=== PATIENT | male | born 1945 | race Caucasian/White ===

== ENCOUNTER 2016-07-25 10:05 | Inpatient (IN) | payer MEDICARE, OTHER ==
[~2016-07-25] VITALS: Ht 175.3 cm; Wt 68.9 kg
[~2016-07-25 10:05] MED LIST changes: -ALBU6.7H IH; -ASP81CT PO; -BUDE10.2 IH; -FURO20TA4 PO; -GUAI600T45 PO; -IPRA3AMP11 INH; -MELO-249 PO; -OXYC1TAB12 PO; -TAMS-8 PO; -TIOT4MIS3 IH
--- OUTSIDE RECORDS SUMMARY | 2016-07-25 10:17 | XMS REPORT | Summary of Care ---
Author Author Gentry Medellin M.D. Organization Unknown Address Unknown Phone Unavailable Care Team Providers Care Masticator Name Role Phone Gentry Medellin M.D. 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 Start 23-May-2016 Active 4 GM Inhaler Citalopram Hydrobromide 40 MG Oral Tablet Take one tablet by mouth daily Quantity: 30 Refills: 11 Active Albuterol Sulfate (2.5 MG/3ML) 0.083% Inhalation Nebulization Solution USE 1 UNIT DOSE IN NEBULIZER EVERY 4 HOURS NEEDED. Quantity: 1 Refills: 4 Active 3 ML Plas Cont (125 Plas Conts) ProAir HFA AERS INHALE 2 PUFFS EVERY 4 HOURS NEEDED FOR COUGH AND WHEEZE. Refills: 0 Active GNP Mucus Relief 400 MG Oral Tablet 1 p.o. 3 times daily Refills: 0 Active Budesonide 1 MG/2ML Inhalation Suspension INHALE 1 UNIT DOSE Twice daily Quantity: 60 Refills: 11 Active 2 ML Plas Cont Ipratropium-Albuterol 0.5-2.5 (3) MG/3ML Inhalation Solution ADMINISTER ONE 3 ML VIAL 4 TIMES DAILY VIA NEBULIZATION. Quantity: 2 Refills: 3 Gentry Medellin M.D. Start 31-May-2016 Active 3 ML Plas Cont (60 Plas Conts) Meloxicam 15 MG Oral Tablet TAKE 1 TABLET DAILY NEEDED. Quantity: 30 Refills: 2 Gentry Medellin M.D. Start 25-Jun-2016 Active Acetylcysteine 20 % Inhalation Solution 2 times a week and BID PRN Quantity: 1 Refills: 5 Gentry Medellin M.D. 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 Procedures Procedure Dates Details History of Colonoscopy History of Hernia Repair Procedures not documented Immunization Name Dates Details Pneumo (Prevnar) on: 01-Aug-2015 Family History Name Dates Details Family history of cerebrovascular accident (CVA) (V17.1, Z82.3) Comments: Family History Status: Active Social History Name Dates Details - Status: Name Dates Details Former smoker Vital Signs Date Test Result Details 25-Jun-2016 10:04 BP Systolic 122 mm[Hg] Status: Comments: Location: LUE; Position: Sitting BP Diastolic 70 mm[Hg] Status: Comments: Location: LUE; Position: Sitting Temperature 98.8 f Status: Comments: Method: Tympanic Heart Rate 85 /min Status: Comments: Location: ; Weight 172 lb Status: Physical Findings 92 Status: Comments: O2 Saturation FiO2 flow rate 2 % Status: Body Mass Index Calculated 25.77 kg/m2 Status: Body Surface Area Calculated 1.93 m2 Status: Results Date Description Value Details 16-Dec-2015 09:16 Colonoscopy Normal Range: 0 Plan of Care Name Dates Details Planned Observations Planned Goals not documented Planned Encounters Appointment; Provider: Gentry Medellin M.D. On 01-Nov-2016 10:00 Interventions Provided Medication ChangesAcetylcysteine 20 % Inhalation Solution - StartMeloxicam 15 MG Oral Tablet - Start Instructions Name Dates Details Instructions not documented Encounters Appointment; Gentry Medellin M.D. Encounter Diagnosis: Problem not documented On 23-May-2016 08:30
[2016-07-25 10:44] LABS: MEAN CORPUSCULAR HEMOGLOBIN 31.4 PG (26.0-34.0); MEAN CORPUSCULAR HGB CONC 32.4 g/dL (31.0-37.0); MEAN CORPUSCULAR VOLUME 97 FL (80-100); MEAN PLATELET VOLUME 9.9 FL (6.0-9.5); PLATELET COUNT 259 10^3uL (150-450); WHITE BLOOD COUNT 16.43 10^3uL (4.0-11.0)
[2016-07-25 10:57] LABS: ALBUMIN 4.1 g/dL (3.4-5.0); ALKALINE PHOSPHATASE 88 U/L (38-126); ANION GAP 20.4 MEQ/L (3-15); BUN/CREATININE RATIO 17 (10-20); TOTAL PROTEIN 7.8 g/dL (6.4-8.5)
[2016-07-25 11:07] LABS: CREATINE KINASE 245 U/L (55-170)
--- NOTE | 2016-07-25 11:10 | Diagnostic Imaging Report ---
INDICATION: Shortness of breath EXAMINATION: Portable chest at 10:48 AM Heart size and pulmonary vascularity are normal. Lungs are clear. There are no effusions or pneumothoraces. IMPRESSION: Negative chest. Dictated by: Dictated on workstation # [id number]
[2016-07-25 11:16] LABS: BILIRUBIN,URINE Negative (Negative); CLARITY,URINE Clear; COLOR,URINE Yellow; GLUCOSE, URINE (UA) Negative (Negative); LEUKOCYTE ESTERASE ,URINE 1+ (Negative); PH,URINE 5.5 (5.0 - 8.0)
[2016-07-25 11:22] LABS: URINE CENTRIFUGED VOLUME 12 mL
[2016-07-25 11:27] LABS: RBC,URINE >100 /HPF
[2016-07-25 12:25] LABS: BAND NEUTROPHILS % 1 % (0-6); EOSINOPHILS % 2 % (0-4); LYMPHOCYTES # 1.5 #; MONOCYTES # 1.1 #; MONOCYTES % 7 % (3-11); SEGMENTED NEUTROPHILS % 81 % (51-67); TOTAL CELLS COUNTED 100
[2016-07-25 12:26] LABS: RBC MORPH NORMAL (NORMAL)
[2016-07-25] MEDS ORDERED: MELO-249 PO (14:04)
[2016-07-25] MEDS ORDERED: FURO20TA4 PO (14:04)
[2016-07-25] MEDS ORDERED: TIOT4MIS3 IH (14:04)
[2016-07-25] MEDS ORDERED: IPRA3AMP11 INH (14:04)
[2016-07-25] MEDS ORDERED: TAMS-8 PO (14:04)
[2016-07-25] MEDS ORDERED: BUDE10.2 IH (14:04)
[2016-07-25] MEDS ORDERED: ALBU6.7H IH (14:04)
[2016-07-25] MEDS ORDERED: OXYC1TAB12 PO (14:04)
--- NOTE | 2016-07-25 14:05 | NUR ---
Pt admitted to [facility]m 314 via cart accompanied by daughter/DPKandi ZENDEJAS. Pt transferred himself from cart to bed by scooting onto bed next to cart. Pt and daughter state he cannot ambulate with the leg swelling the way it is now. Pt very talkative, speaking in full sentences. O2 on 3L NC at this time. Pt asks what it is on, stating he wonders if it's enough. Encouraged to take slow deep breaths. Bilateral leg edema 2+ pitting with blister on top of L foot. Multiple scratches and open areas noted on lower extremities. Pt states he "scratched at them once and they looked like that". 2 small weeping areas noted on R lower extremity.
[2016-07-25] MEDS ORDERED: CITA40TA5 PO (14:26)
[2016-07-25] MEDS ORDERED: ALBUTEROL HFA (VENTOLIN HFA) COMMON CANNISTER IH PRN (14:35)
[2016-07-25 15:05] VITALS: BP 113/65
--- NOTE | 2016-07-25 15:19 | History and Physical (E) ---
History & Physical PCP: Gentry Medellin MD CC: Falls at home, leg edema. HPI Aurelio Herrera is a 71 year old male admitted from ED 07/25 where he presented from home via EMS for falls at home. He has had at least three falls in the last 24 hours and on this most recent fall he could not get up without EMS assistance. Has resultant back pain. Has other issues as well including worsening BLE edema, leg numbness. In ED, afebrile with low BP at 97/52, HR 92, SpO2 85% on room air, 91% on 3 L. WBC was elevated at 16.43 with 81% N and 1% B. CK mildly elevated at 245. Troponin negative. NT-pro-BNP = 462. TSH normal. UA showed 3+ blood, 1+ LE, > 100 RBC, 5-10 WBC. 2+ hyaline casts. He was given no therapies in ED. He was admitted for further workup and management. On arrival to unit, awake, interactive, oriented. Able to relate history. Speaking in full sentences. Acknowledges falling 3 times. Blames this on his socks that don't fit well (because of edema) and caused him to slip. He tried to brace his fall against the refrigerated door but couldn't stop himself from going down. Denies light headedness or dizziness. Denies syncopal symptoms but has had weakness in his legs. Feet are often numb with some burning sensation at times. Legs have been more swollen and he has spots that have weeping. He has some secondary excoriations as well. These spots have not bleed. No fever/ chills. Has had chronic back pain and this has been getting worse. PCP had ordered lumber MRI at the open MRI facility in [place] but this was recently deferred because of equipment issues. No new bowel or bladder incontinence. No saddle paresthesia. But he has had worse leg weakness especially on left side. Referred to Dr. Toth in [place]. PCP had planned to defer to him for imaging but daughter says Dr. Toth was asking for a CT in the very least. Does have red flag factors including worsening pain, age, leg weakness. Regarding leg edema, has had this over the last year. Swelling would come and go but it has been getting worse in the last few weeks. No prior echo. He had a swan placed by PCP's office 07/23 to aid with diuresis. Patient is actually more bothered by leg edema than anything else. He feels if he could get the swelling off, leg and back pain would be much improved. Had been taking furosemide at home. Weight has been stable but edema not improving. Has not been using compression hose at home. PMH * Urinary retention * COPD stage III. [facility] [place]. * Depression * Anxiety * Chronic back pain * BLE edema * Tobacco abuse. Quit 07/2015. * OA PSH * Right inguinal hernia repair ALLERGIES: Please see list at end of report. HOME MEDICATIONS: Please see list at end of report. FH Mom of stroke. Had some kind of cancer in her leg. Father of pneumonia. Daughter is healthy. SH Lives independently at [facility]. Quit smoking in 2015 but had > 100 pack year history. No alcohol. No drug use. 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 ROS CONSTITUTION: Weight stable despite swelling. No fever or chills. HEENT: No change in vision or hearing. No sores in mouth, sore throat. Has some trouble swallowing at times. CV: No chest pain, palpitations. PULM: Has mild chronic cough but no recent increase. On home oxygen already. GI: No upset stomach, nausea, vomiting, or diarrhea. Some constipation. No blood in stool. : No dysuria. Has swan placed by PCP 07/23. MS: No new muscle or joint aches and pains. NEURO: Per HPI, exam. INTEG: Per HPI, exam. ENDO: No heat or cold intolerance. HEME/LYMPH: No easy bruising or bleeding. No swollen glands. PSYCH: No change in mood or behavior. OBJECTIVE Vital Signs Date Time Temp Pulse Resp B/P Pulse Ox O2 Delivery O2 Flow Rate FiO2 07/25/16 14:16 95 19 91 Nasal Cannula 3 07/25/16 10:05 98.0 97/52 GEN: Awake, alert, oriented, NAD at present. HEENT: EOMI, clear sclerae, somewhat dry oral mucosa. CV: RRR S1 S2 normal with no murmur LUNGS: Diminished throughout. No R/R/W. ABD: Soft, NT/ND with normal bowel sounds. EXTR: 3+ BLE edema with weeping. Marked pedal edema, L > R INTEG: Punctate lesions BLE with weeping, secondary excoriations. Surrounding erythema. Large bulla, dorsum of right foot. NEURO: No focal motor neuro deficit. Gait not assessed. Detailed exam deferred on admit due to lumbar back pain. Weight: 68.1 kg Laboratory Results-14 Days 07/25/16 09:43: Absolute Band Neutrophils 0.2, Alanine Aminotransferase (ALT/SGPT) 59, Albumin 4.1, Albumin/Globulin Ratio 1.108, Alkaline Phosphatase 88, Anion Gap 20.4H, Aspartate Amino Transf (AST/SGOT) 52H, BUN/Creatinine Ratio 17, Band Neutrophils % 1, Basophils # (Auto) , Basophils # (Manual) 0.0, Basophils % ( Manual) 0, Basophils (%) (Auto) , Blood Morphology Comment Normal, Blood Urea Nitrogen 19H, Calcium Level 9.6, Calcium/Ionized Calcium Ratio 4.0, Calculated Osmolality 274L, Carbon Dioxide Level 32H, Chloride Level 92L, Creatine Kinase MB 5.1, Creatinine 1.10, Differential Total Cells Counted 100, Eosinophils # 0.3 , Eosinophils # (Auto) , Eosinophils % (Manual) 2, Eosinophils (%) (Auto) , Estimat Glomerular Filtration Rate 80.1, Estimated GFR (Non- 66.2, Glucose Level 96, Hematocrit 44.50, Hemoglobin 14.4, Lymphocytes # 1.5, Lymphocytes # (Auto) , Lymphocytes % (Manual) 9L, Lymphocytes (%) (Auto) , Mean Corpuscular Hemoglobin 31.4, Mean Corpuscular Hemoglobin Concent 32.4, Mean Corpuscular Volume 97, Mean Platelet Volume 9.9H, Monocytes # 1.1, Monocytes # ( Auto) , Monocytes % (Manual) 7, Monocytes (%) (Auto) , RO-Udv-U-Type Natriuretic Peptide 462H, Neutrophils # 13.3, Neutrophils # (Auto) , Neutrophils (%) (Auto) , Platelet Count 259, Potassium Level 3.6, Prothromb Time International Ratio 1.1, Prothrombin Time 12.1, Red Blood Count 4.59, Red Cell Distribution Width 12.8, Segmented Neutrophils % 81H, Sodium Level 141, Thyroid Stimulating Hormone (TSH) 1.56, Total Bilirubin 1.0, Total Creatine Kinase 245*H, Total Protein 7.8, Troponin I < 0.012, White Blood Count 16.43H 07/25/16 11:05: Urine Bacteria 1+, Urine Bilirubin Negative, Urine Blood 3+H, Urine Clarity Clear, Urine Collection Type Catheter, Urine Color Yellow, Urine Glucose (UA) Negative, Urine Hyaline Casts 2+H, Urine Ketones Negative, Urine Leukocyte Esterase 1+H, Urine Microscopic RBC >100, Urine Nitrite Negative, Urine Protein Negative, Urine Specific Carey 1.020, Urine Squamous Epithelial Cells 2-5, Urine Urobilinogen 1.0, Urine WBC 5-10H, Urine pH 5.5, Volume Urine Centrifuged 12 ml IMAGING 07/25/16 CHEST 1 VIEW, AP/PA ONLY* INDICATION: Shortness of breath EXAMINATION: Portable chest at 10:48 AM Heart size and pulmonary vascularity are normal. Lungs are clear. There are no effusions or pneumothoraces. IMPRESSION: Negative chest. ASSESSMENT Aurelio Herrera is a 71 year old male admitted from ED 07/25 after 3 falls at home attributed to leg weakness and tripping. He has acute on chronic lower back pain and has been dealing with worsening BLE edema of undetermined cause. He has had urinary retention and swan was placed in office by PCP 2 days prior to admit. He has other chronic problems including stage III COPD. PLAN * Falls at home: Check vitamin D. PT/OT eval and treat. * Acute on Chronic Lower Back Pain: Red flags: age, left leg weakness. Unable to tolerate MRI that had been ordered outpatient prior to admit. CT L-spine to evaluate. PCP plans to refer to Dr. Paniagua in [place]. Oxycodone/acetaminophen , lidoderm for pain. * BLE Edema: Uncertain cause. Could be due to fluid retention caused by lung disease. Has not had prior cardiac workup. Renal function appears preserved and there does not appear to be significant proteinuria. Check echo. JODY hosareli. Furosemide. * Leukocytosis: WBC 16.43 on admit. 81% N with 1% bands. LE positive on UA but nitrite negative. No other stigmata of infection. Monitor closely. Monitor WBC trend. * Constipation: Bowel regimen * F/E/N: 2 gram sodium diet. Peripheral IV. I&O, daily weight. * Prophylaxis: Enoxaparin * Code Status: Full * Dispo: Observation pending utilization review. Expect 2-3 day stay. CHRONIC ISSUES * Urinary retention. Tamsulosin, swan * Anxiety: Citalopram. Permit lorazepam, though monitor use closely. * Depression: Citalopram * Chronic Pack Pain: Oxycodone/acetaminophen * COPD Stage III: Albuterol PRN. Duoneb. Review/reconcile home regimen. Allergies/Home Medications Allergies: Coded Allergies: No Known Drug Allergies (Unverified , 07/25/16) Reported Home Medications Scheduled Albuterol/Ipratropium (Duoneb 3mg-0.5mg/3ml) 3 ML INH QID (Reported) Budesonide/Formoterol Fumarate (Symbicort 160-4.5 mcg Inhaler) 2 PUFF IH BID ( Reported) Citalopram Hydrobromide (Citalopram Hydrobromide) 40 MG PO DAILY (Reported) Furosemide (Furosemide) 20 MG PO BID (Reported) Meloxicam (Meloxicam) 15 MG PO DAILY (Reported) Oxycodone HCl/Acetaminophen (Percocet 10mg/325mg) 1 TAB PO Q4-6 (Reported) Tamsulosin HCl (Flomax) 0.4 MG PO DAILY (Reported) Tiotropium Br/Olodaterol HCl (Stiolto Respimat Inhal [place]) 4 GM IH DAILY ( Reported) Scheduled PRN Albuterol Sulfate (Proventil HFA) 6.7 GM IH NEEDED PRN PRN DYSPNEA (Reported ) Discontinued Medications Acetaminophen (Acetaminophen) 1,000 MG PO PRN (Reported) Discontinued Reason: Update list Citalopram Hydrobromide (Citalopram Hydrobromide) 40 MG PO DAILY (Reported) Discontinued Reason: Update list Cyclobenzaprine HCl (Flexeril) 10 MG PO Q8H PRN PRN SPASMS Discontinued Reason: Update list Methylprednisolone (Medrol Dosepack) 21 TAB PO DAILY Discontinued Reason: Update list Naproxen Sodium (Aleve) 440 MG PO PRN (Reported) Discontinued Reason: Update list Naproxen Sodium (Anaprox DS) 550 MG PO Q8H PRN PRN PAIN Discontinued Reason: Update list Vit D3/Folic Acid/B2/B6/B12 (Folgard Tablet) 1 EACH PO PRN (Reported) Discontinued Reason: Update list Copies to: End of Report . SONIA CERVANTES MD July 25, 2016 15:09
[2016-07-25] MEDS ORDERED: MAGNESIUM HYDROXIDE 80MG/ML (MILK OF MAGNESIA) 30 ML UDC PO PRN (15:30)
[2016-07-25] MEDS ORDERED: ONDANSETRON 4 MG (ZOFRAN) ORAL DISSOLVE TAB PO PRN (15:30)
[2016-07-25] MEDS ORDERED: PROMETHAZINE HCL INJ 12.5 MG in SODIUM CHLORIDE 25 ML IV PRN (15:30)
[2016-07-25] MEDS ORDERED: CALCIUM CARBONATE CHEWABLE 300 MG (TUMS) TABLET PO PRN (15:30)
[2016-07-25] MEDS ORDERED: ACETAMINOPHEN 325 MG TAB (TYLENOL) PO PRN (15:30)
[2016-07-25] MEDS ORDERED: MAG HYDROX/AL HYDROX/SIMETH 200-200-20/5 ML (MAG-AL PLUS) 30 ML UDC PO PRN (15:30)
[2016-07-25 15:58] VITALS: BP 99/56
[2016-07-25] MEDS: LIDOCAINE (LIDODERM) 5% PATCH TOP SCH (16:05)
[2016-07-25] MEDS: LORazepam 1 MG (ATIVAN) TABLET PO PRN (17:17)
--- NOTE | 2016-07-25 17:17 | NUR ---
Upon administering PO Ativan for pt's general anxiety, pt states "I'm not staying here tonight. I need to go home. My anxiety and depression are getting to me and I'm claustrophobic and I can't be alone tonight. I just can't stay here tonight". Long discussion with patient regarding ability to care for himself in his condition. Pt states "I can keep my legs up at home". When medications were discussed, pt states "can't I take medications at home?". Discussed importance of IV medications. PO Ativan given at this time. Tristonine informed of anxiety.
[2016-07-25] MEDS: ALBUTEROL/IPRATROPIUM 3MG-0.5MG/3ML (DUONEB) NEB VIAL INH SCH ×2 (17:20→20:30)
[2016-07-25] MEDS ORDERED: NS FLUSH 3 ML PRN IV (17:30)
[2016-07-25] MEDS: LORazepam 2 MG/ML (ATIVAN) 1 ML VIAL IV PRN (17:32)
--- NOTE | 2016-07-25 17:32 | NUR ---
PRN dose of IV Ativan given at this time per Dr Ace's instruction. Malka conversed with patient and daughter. Informed pt we will work to treat his anxiety so he can stay here to treat his edema. Will re-evaluate patient's condition once medications take effect.
[2016-07-25] MEDS: FUROSEMIDE 100 MG/10 ML (LASIX) VIAL IV SCH (17:46)
[2016-07-25] MEDS: CITALOPRAM 40 MG (CELEXA) TABLET PO SCH (17:46)
[2016-07-25] MEDS: POLYETHYLENE GLYCOL 17 GM (MIRALAX) PACKET PO SCH (17:46)
--- NOTE | 2016-07-25 18:30 | NUR ---
MED REC COMPLETE--current med list obtained from interview with patient and his daughter.
[2016-07-25] MEDS ORDERED: GUAI600T45 PO (18:41)
[2016-07-25] MEDS ORDERED: AC500T PO (18:41)
[2016-07-25] MEDS ORDERED: ASP81CT PO (18:41)
[2016-07-25] MEDS: DOCUSATE SODIUM 100 MG (COLACE) CAP PO SCH (20:02)
[2016-07-25] MEDS: PATCH REMOVAL TOP SCH (20:02)
--- NOTE | 2016-07-25 20:15 | NUR ---
To CT. Patient displays no anxiety at this time.
[2016-07-25] MEDS: FLUTICASONE/SALMETEROL HFA 115/21 MCG (ADVAIR) COMMON CANNISTER INH SCH (20:30)
--- NOTE | 2016-07-25 20:35 | NUR ---
Return from CT
--- NOTE | 2016-07-25 21:04 | Diagnostic Imaging Report ---
PROCEDURE: CT lumbar spine without contrast. TECHNIQUE: Multiple contiguous axial images were obtained through the lumbar spine without the use of intravenous contrast. Sagittal and coronal reformations were then performed. INDICATION: [id number]-zc-[id number] low back pain with leg weakness. FINDINGS: There is left convexity degenerative lumbar rotoscoliosis. The vertebral body heights are well maintained. There is multilevel degenerative disc disease with a vacuum disc at essentially every level of the lumbar spine. There is lower lumbar hypertrophic degenerative facet disease. At L3-L4, there appears to be broad-based annular bulging with thickening of the ligamentum flavum. There is at least [id number]-qzhmqg central spinal stenosis with encroachment upon the lateral recesses bilaterally as well as right neuroforaminal encroachment. Similar findings are seen at L4-L5 and to a lesser degree at L5-S1. There is ectasia of the infrarenal abdominal aorta up to 2.7 cm. IMPRESSION: Moderately severe diffuse lumbar spondylosis and multilevel degenerative disc disease with a left convexity degenerative lumbar rotoscoliosis. There is xpsafrii-ld-hizlum spinal stenosis at L3-L4 and L4-L5. This could be better evaluated with MRI. No acute fracture. Dictated by: Dictated on workstation # [id number]
[2016-07-25] MEDS: oxycODONE/ACETAMINOPHEN 10MG-325 MG (PERCOCET-10) TABLET PO PRN (21:06)
[2016-07-26 00:50] VITALS: BP 106/54
[2016-07-26] MEDS: oxycODONE/ACETAMINOPHEN 10MG-325 MG (PERCOCET-10) TABLET PO PRN ×2 (04:30→14:18)
--- NOTE | 2016-07-26 04:30 | NUR ---
Percocet for back pain. Patient also repositioned and coffee provided as requested.
[2016-07-26] MEDS: FLUTICASONE/SALMETEROL HFA 115/21 MCG (ADVAIR) COMMON CANNISTER INH SCH ×2 (06:05→19:34)
[2016-07-26] MEDS: ALBUTEROL/IPRATROPIUM 3MG-0.5MG/3ML (DUONEB) NEB VIAL INH SCH (06:05)
[2016-07-26 06:09] LABS: BASOPHILS % (AUTO) 0 % (0-2); EOSINOPHILS # (AUTO) 0.3 10^3uL; EOSINOPHILS % (AUTO) 2 % (0-4); MEAN CORPUSCULAR HGB CONC 32.6 g/dL (31.0-37.0); MEAN CORPUSCULAR VOLUME 97 FL (80-100); MEAN PLATELET VOLUME 9.6 FL (6.0-9.5); MONOCYTES # (AUTO) 1.2 X10^3; MONOCYTES % (AUTO) 9 % (3-11); NEUTROPHILS # (AUTO) 10.4 X10^3; NEUTROPHILS % (AUTO) 80 % (51-67); PLATELET COUNT 224 10^3uL (150-450); WHITE BLOOD COUNT 12.95 10^3uL (4.0-11.0)
[2016-07-26 06:10] LABS: MEAN CORPUSCULAR HEMOGLOBIN 31.8 PG (26.0-34.0)
[2016-07-26 06:30] LABS: ALBUMIN 3.1 g/dL (3.4-5.0); ANION GAP 10.3 MEQ/L (3-15); MAGNESIUM* 2.1 mg/dL (1.6-2.3)
--- NOTE | 2016-07-26 07:46 | NUR ---
Patient had no further issues with anxiety through the night.
[2016-07-26 07:59] VITALS: BP 104/59
[2016-07-26] MEDS: CITALOPRAM 40 MG (CELEXA) TABLET PO SCH (08:16)
[2016-07-26] MEDS: POTASSIUM CHLORIDE ER 20 MEQ TABLET PO SCH ×2 (08:16→18:16)
[2016-07-26] MEDS: POLYETHYLENE GLYCOL 17 GM (MIRALAX) PACKET PO SCH (08:16)
[2016-07-26] MEDS: DOCUSATE SODIUM 100 MG (COLACE) CAP PO SCH ×2 (08:16→20:51)
[2016-07-26] MEDS: FUROSEMIDE 100 MG/10 ML (LASIX) VIAL IV SCH (08:20)
--- NOTE | 2016-07-26 08:30 | NUR ---
PRN Ativan given at this time per pt request. Pt sitting up in bed. States he slept well and that the bed is comfortable. Denies needs.
[2016-07-26] MEDS: LORazepam 1 MG (ATIVAN) TABLET PO PRN (08:31)
[2016-07-26] MEDS: ENOXAPARIN 40 MG/0.4 ML (LOVENOX) SYR SC SCH (08:32)
[2016-07-26] MEDS: NS FLUSH 3 ML DAILY IV SCH (09:00)
--- NOTE | 2016-07-26 09:17 | NUR ---
NUTRITION ASSESSMENT Level 1 Patient: Aurelio Herrera Age/Sex: 71/M Date Screened: 07-26-16 Weight: 165#/75 kg Height: 69 inches Primary Diagnosis: falls, BLE edema Diet Order: 2 g. sodium Relevant labs: potassium 3.4, phos/mg WNL, 25(OH)D2 <12.8, TSH 1.56, glucose 96 Food allergies: N Nutrition Assessment Criteria Age over 80: N Body Mass Index (BMI) under 19: N Admission Screening Indicates Risk? 6 points Moderate/High Risk Diagnosis: N TPN or PPN: N NPO or clear liquid diet: N Serum Glucose <70 or >180: N Hgb A1c >6.7: N/A Total: 6 points Risk Screen: __ Patient at low nutritional risk based on available data; reevaluate in 5-7 days __ Patient at moderate nutritional risk based on available data; reevaluate in 3-5 days _X_ Patient at high nutritional risk; complete Nutrition Assessment within 48 hours of admission.
--- NOTE | 2016-07-26 10:36 | NUR ---
NUTRITION ASSESSMENT Level II Patient: Aurelio Herrera Age/Sex: 71/M Date Assessed: 07-26-16 ASSESSMENT Pertinent History: Patient admitted with falls and BLE edema, and screened at high nutritional risk secondary to reports of difficulty swallowing at times as well as 3 falls at home in the past 24 hours. PMHx includes COPD stage III, depression/anxiety, chronic back pain and osteoarthritis. He lives alone at home in [facility]. Pt. denied GI concerns. He has been taking Lasix at home but edema not improving. Pt. reports weight has been stable despite swelling and edema; there is no recent weight in the EMR to corroborate this, but he weighed 134# in 2013. Pt. was admitted with 3+ BLE edema. Meds/Nutrition: KCl, Colace, Lasix Weight: 165#/75 kg Height: 69 inches Body Mass Index (BMI): 24.4 [place] Body Weight : 160#/72.7 kg % IBW: 103% GASTROINTESTINAL Appetite: fair, eating 50% Diet Order: 2 g. sodium Unintentional loss of >10 lbs. in 3 months: N Difficult to chew/swallow: Yes, at times Diabetes: N Relevant Labs: potassium 3.4, phos/mg WNL, 25(OH)D2 <12.8, TSH 1.56, glucose 96 Calculations for Nutritional Assessment Estimated calorie needs: 25-28 kcals/kg = 1,875-2,100 kcals Estimated protein needs: 1.0-1.3 g/kg = 75-97 g./day DIAGNOSIS 1. Nutrition Diagnosis: Potential for inadequate intake related to occasional trouble swallowing as evidenced by pt. reports of difficulty swallowing at times. NUTRITIONAL INTERVENTION Goal: Patient will receive adequate nutrition to meet his needs. Plan: Will provide 2 g. sodium diet as ordered and monitor intake for adequacy. I am concerned that pt. has lost weight that is masked by his 3+ BLE edema. Encourage adequate protein with minimum 75 g./day as calculated above. Will also monitor for any difficulty in swallowing, and adjust diet to best meet his needs as needed. MONITORING & EVALUATION _X_ Monitor patients menu selections _X_ Monitor patients food intake per nursing notes __ Monitor NPO/clear liquid days __ Monitor lab values _X_ Monitor I&O _X_ Other--monitor weight and swallow ability
--- NOTE | 2016-07-26 10:38 | Progress Note (E) ---
Progress Note SUBJECTIVE Vitals stable overnight. Weaned to room air. Having good diuresis with IV furosemide. WBC improved to 12.95. 80% N. K mildly low at 3.4. Added PO supplement. CRP was mildly elevated at 4.70. NT-pro-BNP just 462, less suggestive of heart failure. Vit D quite low so starting ergocalciferol. UA suggests possible UTI but he had a catheter placed 2 days prior to admit so sample is suspect. Culture pending. CT lumbar spin showed stenosis but no actionable lesion at this time. Plan to send him home with CD of this to share with back surgeon he plans to see. Anxiety was a struggle for him yesterday afternoon but this stabilized with lorazepam. Noted that he is not on this at home. RN reports some leakage around the swan catheter. Discussed plan to remove this altogether. He's fearful since he's getting diuresed and isn't able to move well. Plan to exchange catheter. OBJECTIVE Vital Signs Date Time Temp Pulse Resp B/P Pulse Ox O2 Delivery O2 Flow Rate FiO2 07/26/16 07:59 98.0 95 22 104/59 92 Room air 07/25/16 15:58 3.00 I & O 07/25/16 07/26/16 Cumulative From/Thru 19:00 07:00 07/25/16 10:05 - 07/26/16 06:03 Intake Total 1537 ml 1537 ml Output Total 2600 ml 2600 ml Balance -1063 ml -1063 ml GEN: Awake, alert, oriented, a bit breathless being repositioned back into bed. HEENT: EOMI, clear sclerae, somewhat dry oral mucosa. CV: RRR S1 S2 normal with no murmur LUNGS: Diminished throughout. No R/R/W. ABD: Soft, NT/ND with normal bowel sounds. : Swan EXTR: 3+ BLE edema with weeping. Marked pedal edema, L > R INTEG: Punctate lesions BLE with weeping, secondary excoriations. Surrounding erythema. Large bulla, dorsum of right foot. MS: Pain on palpation of lumbar spine. Pain with supine positioning. NEURO: No focal motor neuro deficit. Gait not assessed. Detailed exam deferred on admit due to lumbar back pain. Weight: 75 kg (admit weight 74.6 kg) Lab-Past 14 Days, 35 Results 07/25/16 09:43: Absolute Band Neutrophils 0.2, Alanine Aminotransferase (ALT/SGPT) 59, Albumin 4.1, Albumin/Globulin Ratio 1.108, Alkaline Phosphatase 88, Anion Gap 20.4H, Aspartate Amino Transf (AST/SGOT) 52H, BUN/Creatinine Ratio 17, Band Neutrophils % 1, Basophils # (Auto) , Basophils # (Manual) 0.0, Basophils % ( Manual) 0, Basophils (%) (Auto) , Blood Morphology Comment Normal, Blood Urea Nitrogen 19H, Calcium Level 9.6, Calcium/Ionized Calcium Ratio 4.0, Calculated Osmolality 274L, Carbon Dioxide Level 32H, Chloride Level 92L, Creatine Kinase MB 5.1, Creatinine 1.10, Differential Total Cells Counted 100, Eosinophils # 0.3 , Eosinophils # (Auto) , Eosinophils % (Manual) 2, Eosinophils (%) (Auto) , Estimat Glomerular Filtration Rate 80.1, Estimated GFR (Non- 66.2, Glucose Level 96, Hematocrit 44.50, Hemoglobin 14.4, Lymphocytes # 1.5, Lymphocytes # (Auto) , Lymphocytes % (Manual) 9L, Lymphocytes (%) (Auto) , Mean Corpuscular Hemoglobin 31.4, Mean Corpuscular Hemoglobin Concent 32.4, Mean Corpuscular Volume 97, Mean Platelet Volume 9.9H, Monocytes # 1.1, Monocytes # ( Auto) , Monocytes % (Manual) 7, Monocytes (%) (Auto) , PW-Tdi-G-Type Natriuretic Peptide 462H, Neutrophils # 13.3, Neutrophils # (Auto) , Neutrophils (%) (Auto) , Platelet Count 259, Potassium Level 3.6, Prothromb Time International Ratio 1.1, Prothrombin Time 12.1, Red Blood Count 4.59, Red Cell Distribution Width 12.8, Segmented Neutrophils % 81H, Sodium Level 141, Thyroid Stimulating Hormone (TSH) 1.56, Total Bilirubin 1.0, Total Creatine Kinase 245*H, Total Protein 7.8, Troponin I < 0.012, White Blood Count 16.43H 07/25/16 10:43: 25-Hydroxy Vitamin D Total < 12.8L 07/25/16 11:05: Urine Bacteria 1+, Urine Bilirubin Negative, Urine Blood 3+H, Urine Clarity Clear, Urine Collection Type Catheter, Urine Color Yellow, Urine Glucose (UA) Negative, Urine Hyaline Casts 2+H, Urine Ketones Negative, Urine Leukocyte Esterase 1+H, Urine Microscopic RBC >100, Urine Nitrite Negative, Urine Protein Negative, Urine Specific [place] 1.020, Urine Squamous Epithelial Cells 2-5, Urine Urobilinogen 1.0, Urine WBC 5-10H, Urine pH 5.5, Volume Urine Centrifuged 12 ml 07/26/16 05:30: Albumin 3.1#L, Anion Gap 10.3, Basophils # (Auto) 0.0, Basophils (%) (Auto) 0, Blood Urea Nitrogen 18, Calcium Level 8.8, Carbon Dioxide Level 36H, Chloride Level 95L, Creatinine 0.92, Eosinophils # (Auto) 0.3, Eosinophils (%) (Auto) 2, Estimat Glomerular Filtration Rate 98.4, Estimated GFR (Non- 81.3, Glucose Level 96, Hematocrit 38.90L, Hemoglobin 12.7L, Lymphocytes # (Auto ) 1.0, Lymphocytes (%) (Auto) 8L, Mean Corpuscular Hemoglobin 31.8, Mean Corpuscular Hemoglobin Concent 32.6, Mean Corpuscular Volume 97, Mean Platelet Volume 9.6H, Monocytes # (Auto) 1.2, Monocytes (%) (Auto) 9, Neutrophils # (Auto ) 10.4, Neutrophils (%) (Auto) 80H, Platelet Count 224, Potassium Level 3.4L, Red Blood Count 4.00L, Red Cell Distribution Width 12.4, Sodium Level 138, White Blood Count 12.95H, C-Reactive Protein 4.70H, Magnesium Level 2.1, Phosphorus Level 3.8 IMAGING 07/25/16 ECHO: PENDING. Prelim: LVEF 50-55%. 07/25/16 CT LUMBAR SPINE WO PROCEDURE: CT lumbar spine without contrast. TECHNIQUE: Multiple contiguous axial images were obtained through the lumbar spine without the use of intravenous contrast. Sagittal and coronal reformations were then performed. INDICATION: Byqmv-[id number] low back pain with leg weakness. FINDINGS: There is left convexity degenerative lumbar rotoscoliosis. The vertebral body heights are well maintained. There is multilevel degenerative disc disease with a vacuum disc at essentially every level of the lumbar spine. There is lower lumbar hypertrophic degenerative facet disease. At L3-L4, there appears to be broad-based annular bulging with thickening of the ligamentum flavum. There is at least rfahfuvk-st-sadudg central spinal stenosis with encroachment upon the lateral recesses bilaterally as well as right neuroforaminal encroachment. Similar findings are seen at L4- L5 and to a lesser degree at L5-S1. There is ectasia of the infrarenal abdominal aorta up to 2.7 cm. IMPRESSION: Moderately severe diffuse lumbar spondylosis and multilevel degenerative disc disease with a left convexity degenerative lumbar rotoscoliosis. There is hjboasud-em-qbtayl spinal stenosis at L3-L4 and L4-L5. This could be better evaluated with MRI. 07/25/16 CHEST 1 VIEW, AP/PA ONLY* INDICATION: Shortness of breath EXAMINATION: Portable chest at 10:48 AM Heart size and pulmonary vascularity are normal. Lungs are clear. There are no effusions or pneumothoraces. IMPRESSION: Negative chest. ASSESSMENT Aurelio Herrera is a 71 year old male admitted from ED 07/25 after 3 falls at home attributed to leg weakness and tripping. He has acute on chronic lower back pain and has been dealing with worsening BLE edema of undetermined cause. He has had urinary retention and swan was placed in office by PCP 2 days prior to admit. He has other chronic problems including stage III COPD. PLAN * Falls at home: Low vitamin D noted. PT/OT eval and treat. * Acute on Chronic Lower Back Pain, Lumbar Spinal Stenosis (L3-4, L4-5): Red flags: age, left leg weakness. Unable to tolerate MRI that had been ordered outpatient prior to admit. CT L-spine results as noted. PCP plans to refer to Dr. Paniagua in [place]. Oxycodone/acetaminophen, lidoderm for pain. * BLE Edema: Uncertain cause. Could be due to fluid retention caused by lung disease. Has not had prior cardiac workup. Renal function appears preserved and there does not appear to be significant proteinuria. Echo pending but EF only mildly low at 50-55%. NT-pro-BNP only mildly elevated. JODY lopez. Furosemide. * Leukocytosis: Improved. WBC 16.43 on admit. 81% N with 1% bands. LE positive on UA but nitrite negative. No other stigmata of infection. Monitor closely. * Constipation: Bowel regimen * Vitamin D Deficiency: Started ergocalciferol 50,000 IU weekly x 6 weeks. Follow with 2000 units PO daily. Recheck in 6 weeks. * Anxiety: Somewhat debilitating for him on admit. Offered lorazepam which was helpful. Monitor closely. Avoid prescribing at discharge since he is not on this at home. * F/E/N: 2 gram sodium diet. Peripheral IV. I&O, daily weight. * Prophylaxis: Enoxaparin * Code Status: Full * Dispo: Observation pending utilization review. Expect 2-3 day stay. CHRONIC ISSUES * Urinary retention. Tamsulosin, swan. Changed catheter 07/26 due to leakage. * Anxiety: Citalopram. Permit lorazepam, though monitor use closely. * Depression: Citalopram * Chronic Pack Pain: Oxycodone/acetaminophen * COPD Stage III: Albuterol PRN. Sub advair for symbicort. Sub tiotropium for Stiolto. SONIA CERVANTES MD July 26, 2016 10:36
[2016-07-26] MEDS: NS FLUSH 10 ML PRN IV (10:42)
[2016-07-26] MEDS: TAMSULOSIN 0.4 MG (FLOMAX) CAP PO SCH (11:10)
[2016-07-26] MEDS: ERGOCALCIFEROL 50,000 UNITS (1.25 MG) CAPSULE (VITAMIN D2) PO SCH (11:10)
[2016-07-26] MEDS: LIDOCAINE (LIDODERM) 5% PATCH TOP SCH (11:11)
[2016-07-26] MEDS: TIOTROPIUM 18 MCG/CAP (SPIRIVA) INHALER (5 CAPS) IH SCH (11:25)
--- NOTE | 2016-07-26 13:59 | NUR ---
Staples catheter removed. PT to evaluate the patient at this time
--- NOTE | 2016-07-26 14:01 | Physical Therapy Evaluation(E) ---
Plan of Care STG: Plan-Treatment Functional: Amb Safe w/ AD on level STG Time Frame: 3 Days Goals Discussed/Agreed: Yes Plan: Balance, Functional Strengthening, Gait & Transfer Training, Neuro Re- Education, Progressive Ambulation, PROM Bilateral LE, Transfer Training, Therapy Excercise Aware of Dx and Prognosis: Yes Aware of Risk & Benefit: Yes To be Seen: Daily Saturday-Saturday Initial Evaluation Service Date/Time 07/26/16, 13:46 Primary Diagnosis: (1) Frequent falls ICD Code: R29.6 (2) Bilateral lower extremity edema ICD Code: R60.0 (3) Chronic back pain ICD Code: 724.5 (4) Strain of back muscle ICD Code: 847.9 Treatment Diagnosis: (1) Chronic back pain ICD Code: 724.5 (2) Frequent falls ICD Code: R29.6 Onset Date: 07/25/2016 Resuscitation Status: Full Code Precaution/Isolation: Standard Precautions Fall Level: High Risk 51 or greater Initial Assessment Reason for Rehab: Increase Strength, Increase Balance, Increase Transfers, Increase Endurance Medical History: COPD, Other (OA, lumbar spinal stenosis, anxiety/depression, 3 falls over a one day time period. ) Pain Location/Comment 07/25 LBP, 6/10 bilateral LE pain. Prior Level of Function The patient lives independently at [facility]. He owns a SPC, FWW, AWW, power chair, but it sounds like he uses AWW in his apartment. Patient on 02 at home per his report. Patient no longer driving. Rehabilitation Potential: Good (Due to independent prior level of function. ) Distance Walked in Feet Patient not able to ambulate this date due to weakness. ROM/Strength Hip Mobility: Right Hip Strength: 2+ Left Hip Strength: 2 Knee Flexion Mobility: Right Knee Flexion Strength: 3 Left Knee Flexion Strength: 3 Knee Extension Mobility: Right Knee Extension Strength: 3- Left Knee Extension Strength: 3- Ankle Mobility: Right Ankle Strength: 2 Left Ankle Strength: 2 Assessment/Goals Initial Transfer Assessment Rolling: Contact Guard Assist Sit-Supine: Moderate Assistance Sitting Edge of Bed: Supervision or setup Supine-Sit: Minimal Assistance Sit-Stand from Bed: Not Assessed/NA Stand-Sit: Not Assessed/NA Ambulation: Not Assessed/NA Transfer Short Term Goals Rolling: Modified [place] Sit-Supine: Contact Guard Assist Sitting Edge of Bed: Modified [place] Supine-Sit: Supervision or setup Sit-Stand from bed: Minimal Assistance Stand-Sit: Minimal Assistance Ambulation: Moderate Assistance (with FWW) Distance to Walk in Feet Patient will ambulate a minimum of 30 feet to demonstrate improve ability to ambulate house hold distances. Transfer Penitentiary Goals Comment No retirement goals will be set. Coding Time In: 1155 Time Out: 1215 Total Minutes: 20 Charges: 96058 Eval< 20 min Rehab G Codes Current Functional Status: [id number] Current Modifier: CK 40% but <60% Projected Functional Goal: R9515-[id number] Goa Modifier: CK 40% but <60% TEA JO PT July 26, 2016 14:01
--- NOTE | 2016-07-26 14:18 | NUR ---
PRN Percocet given at this time for c/o back pain after pt worked with PT. Denies other needs.
--- NOTE | 2016-07-26 14:30 | NUR ---
16 kazakh swan catheter inserted at this time using sterile technique. Patient tolerated well. Urine Specimen collected. Sediment seen in urine bag.
[2016-07-26 14:46] LABS: BILIRUBIN,URINE Negative (Negative); CLARITY,URINE Cloudy; GLUCOSE, URINE (UA) Negative (Negative); LEUKOCYTE ESTERASE ,URINE 1+ (Negative)
[2016-07-26 14:48] LABS: COLOR,URINE Dark Yellow
[2016-07-26 14:56] LABS: RBC,URINE >100 /HPF; URINE CENTRIFUGED VOLUME 12 mL
--- NOTE | 2016-07-26 15:17 | NUR ---
MULTIDISCIPLINARY MTG/DR. CERVANTES: Pt. admitted yesterday after having three falls at home due to tripping and leg weakness. Pt. has BLE edema which is chronic but worse the last few weeks. He also suffers from chronic back pain. He was found to have low vitamin D level. PT/OT will evaluate Pt. Pt did have a CT of his spine which did not show a compression fracture but did show possible lumbar spinal stenosis. Have been diuresing Pt and working on symptom control. Pt. had a catheter placed by his PCP; will replace this catheter today and obtain a new UA. Treating Pt. for constipation and significant anxiety. KERRY visited with Pt. daughter who asked about a wheelchair and hospital bed for Pt. She had already looked into a wheelchair at [employer]. KERRY suggested contacting the [facility] and [employer] regarding these needs. SW will also contact [employer]. Pt. daughter stated Pt. lives at [facility] and she has been trying to get him to move in with her. KERRY discussed assisted living or [facility] placement and the daughter didn't feel like Pt. or she are ready for that. She would rather take Pt. home with her than have him placed somewhere.
[2016-07-26 16:00] VITALS: BP 111/63
--- NOTE | 2016-07-26 16:18 | Progress Note (E) ---
Progress Note Notified by utilization review that patient meets inpatient criteria. Admit order placed. SONIA CERVANTES MD July 26, 2016 16:18
--- NOTE | 2016-07-26 17:37 | OT Therapy Evaluation (E) ---
POC Plan of Care Problems Identified: Activity Tolerance, ADLs, Balance, Lt UE Coordination, Lt UE Strength, Rt UE Coordination, Rt UE Strength, Safety Awareness Plan: Evaluation-OT, ADL/Self Care Management, Therapy Exercises, Therapy Activities, Pt/Family/Staff Education, Manual Frequency of OT: Five times weekly Duration of OT: Other (4 days ) Therapy to Include: ADL training, Balance with ADLs, Edema control, Manual therapy, Pt/family education, Therapeutic activities, UE strengthing Discharge Recommendations: TCU/Skilled NH Pt would benefit from skilled occupational therapy services to improve independence with self care tasks for return to prior level of function. Pt. Aware of Dx and Prognosis: Yes Pt. Aware of Risk & Benefit: Yes Goals: Discussed with patient, Discussed with family Short Term Goals STG Time Frame: 2 Days Will Dress Upper Extremity: With Min Assistance STG #1 Pt will participate in 15 min of ther-ex with use of energy conservation techniques as needed. [facility]cf Goals LTG Time Frame: 4 Days Will Dress Upper Extremity: With Setup/SBA Will Dress Lower Extremity: With Min Assistance Will Bathe Self: With Min Assistance Will do Toilet Transfers: With Min Assistance Will do Toilieting: With Min Assistance LTG # 1 Pt will demonstrate ability to independently apply deep breathing techniques during daily activities and exercises to ease shortness of breath and improve performance. Inital Evaluation/General Service Date/Time 07/26/16, 17:37 Primary Diagnosis: (1) Frequent falls ICD Code: R29.6 (2) Bilateral lower extremity edema ICD Code: R60.0 (3) Chronic back pain ICD Code: 724.5 (4) Strain of back muscle ICD Code: 847.9 Treatment Diagnosis: (1) Weakness ICD Code: R53.1 Onset Date: 07/25/16 Start of Care Date: July 26, 2016 Precaution/Isolation: Standard Precautions Fall Level: High Risk 51 or greater Resuscitation Status: Full Code Reason for Referral: Evaluation and Treat Pertinent Medical History: COPD, Other (OA, lumbar spinal stenosis, anxiety/ depression, 3 falls over a one day time period. ) Pain Level: 0 Oxygen Needed: Room air O2 liters/minute: 3 Rehabilitation Potential: Good Potential Based On Pt's prior level of function and independence with self care tasks. Living Status Prior to Admit: Alone ([place]) Prior Level of Function: Independent ADLs Prior to onset, pt reports independence with self care tasks. Daughter reports increased difficulty taking care of self the last couple of week secondary to BLE edema. Pt reports increased falls at home. Daughter helps with simple IADL tasks. Pt rides a scooter around town. Pt is on 3 L of oxygen 24 hours a day. Plans Following Discharge: Return Home Support Persons: Adult Child Entry Into Home: Level Entry Shower and Tub Type: Tub/shower combo-rails (Pt reports typically taking sponge baths secondary to COPd) Assist Devices: Front Wheel Walker, Tripod Scooter, 4 WW Toilet Type: Raised with grab bars Comment Pt reports he has been using his scooter more recently. Current Function Assessment Mental Status Patient Orientation: Person, Place, Time, Situation Mental Status: Alert Cognition Attention: Intact Memory: Intact Safety/Judgement: Intact Visual/Perceptual Skills Glassess: Yes Hearing: Impaired Hand Dominance Hand Dominance: Right ROM/Strength ROM Comment BUE's limited with external rotation secondary to increased back pains. All other planes within functional limits. Strength Comment BUE 4/5 Skin and Positioning Integumentary: Rt UE edema, Lt UE edema Neurological Coordination: Minimally impaired Endurance Activity Endurance: Becomes SOB, Instructions provided, Needs energy saving techn, Poor Bed Mobility/Transfers Bed Mobility: Moderate assist Supine from Sit: Moderate assist Sit to Stand: Other (Pt refused to complete transfer this date.) Sitting Balance: Minimum assist ADLs Hand : Feeding Self: Independent Grooming: Grooming Status: Setup/SBA Dressing Dressing: Moderate assist Bathing Bathing- Type of Assistance: Moderate Assist Toileting Toilet Hygiene: Maximum Assist CPT/G Codes Time In: 13:52 Time Out: 14:16 Total Minutes: 24 (04/10 eval) G Codes: G8987 Selfcare Cur Status (CK), G8988 Selfcare Goal Stat (CJ- Use of clinical judgment and use of the Michelle Index. Pt scored a 55/100, requiring assitance with functiona mobility, transfers, toileting, bathing and dressing. ) SANDRA LIVE OT July 26, 2016 17:37
--- NOTE | 2016-07-26 18:37 | NUR ---
Pt denies needs at this time. Requests Ativan at bedtime, does not need it now. Skin warm, dry, intact. Resprs nonlabored, even on 3L NC. Damian bears in bed with pt. SL intact. Staples patent to DD; dark abhay urine with sediment noted. Pt denies needs.
--- NOTE | 2016-07-26 19:37 | NUR ---
Pt found lying in bed on 3 l/min NC. SPO2 92%, HR 85, RR 16 and non labored. Pt stated he is having no difficulty breathing and his breath sounds are clear before and after 2p Advair 115/21 via Spacer. Pt rinsed his mouth post Tx.
--- NOTE | 2016-07-26 20:53 | NUR ---
Refused need for Ativan tonight. States, "No, I'm ok."
[2016-07-26] MEDS: PATCH REMOVAL TOP SCH (22:00)
--- NOTE | 2016-07-27 | NUR ---
Percocet for back pain 08/25. Addendum: 07/27/16 at 0008 by Mackenzie Echols RN Fluids removed from room for NPO status.
[2016-07-27 00:03] VITALS: BP 121/65
--- NOTE | 2016-07-27 05:31 | NUR ---
Patient has had few complaints throughout night. Pain has been kept controlled. NPO status since midnight.
[2016-07-27 05:46] LABS: BASOPHILS % (AUTO) 0 % (0-2); EOSINOPHILS # (AUTO) 0.3 10^3uL; EOSINOPHILS % (AUTO) 2 % (0-4); LYMPHOCYTES # (AUTO) 1.1 X10^3; MEAN CORPUSCULAR HGB CONC 32.3 g/dL (31.0-37.0); MEAN CORPUSCULAR VOLUME 97 FL (80-100); MEAN PLATELET VOLUME 9.5 FL (6.0-9.5); MONOCYTES # (AUTO) 1.2 X10^3; MONOCYTES % (AUTO) 9 % (3-11); NEUTROPHILS # (AUTO) 10.9 X10^3; NEUTROPHILS % (AUTO) 80 % (51-67); PLATELET COUNT 233 10^3uL (150-450); WHITE BLOOD COUNT 13.56 10^3uL (4.0-11.0)
[2016-07-27 06:04] LABS: MEAN CORPUSCULAR HEMOGLOBIN 31.4 PG (26.0-34.0)
[2016-07-27 06:19] LABS: ALBUMIN 3.3 g/dL (3.4-5.0); ANION GAP 10.6 MEQ/L (3-15); MAGNESIUM* 2.2 mg/dL (1.6-2.3)
[2016-07-27] MEDS: LORazepam 2 MG/ML (ATIVAN) 1 ML VIAL IV PRN (07:23)
--- NOTE | 2016-07-27 07:26 | NUR ---
Complaining of restless legs and lower back pain. Reports anxiety. Informed US on the way. Ativan offered and accepted.
--- NOTE | 2016-07-27 07:28 | NUR ---
US at bedside. Daughter at bedside.
[2016-07-27 07:42] VITALS: BP 112/68
[2016-07-27] MEDS: TIOTROPIUM 18 MCG/CAP (SPIRIVA) INHALER (5 CAPS) IH SCH (08:04)
[2016-07-27] MEDS: FLUTICASONE/SALMETEROL HFA 115/21 MCG (ADVAIR) COMMON CANNISTER INH SCH ×2 (08:04→20:13)
[2016-07-27] MEDS: DOCUSATE SODIUM 100 MG (COLACE) CAP PO SCH ×2 (08:17→20:33)
[2016-07-27] MEDS: LIDOCAINE (LIDODERM) 5% PATCH TOP SCH (08:17)
[2016-07-27] MEDS: ENOXAPARIN 40 MG/0.4 ML (LOVENOX) SYR SC SCH (08:17)
[2016-07-27] MEDS: CITALOPRAM 40 MG (CELEXA) TABLET PO SCH (08:17)
[2016-07-27] MEDS: FUROSEMIDE 100 MG/10 ML (LASIX) VIAL IV SCH ×2 (08:18→14:38)
[2016-07-27] MEDS: NS FLUSH 3 ML DAILY IV SCH (08:20)
[2016-07-27] MEDS: POTASSIUM CHLORIDE ER 20 MEQ TABLET PO SCH ×2 (08:28→17:53)
[2016-07-27] MEDS: POLYETHYLENE GLYCOL 17 GM (MIRALAX) PACKET PO SCH (08:28)
--- NOTE | 2016-07-27 08:42 | Diagnostic Imaging Report ---
INDICATION: Urinary retention. COMPARISON STUDY: CT of the lumbar spine from 2 days ago. FINDINGS: The bilateral renal ultrasound demonstrates both kidneys to be of normal size, shape, texture, and echogenicity. No calculus or hydronephrosis is present. The right kidney measures 9 x 5 x 4 cm and the left kidney measures 9.4 x 4.4 x 3.7 cm. IMPRESSION: Normal renal ultrasound. Dictated by: Dictated on workstation # [id number]
--- NOTE | 2016-07-27 09:41 | Progress Note (E) ---
Progress Note SUBJECTIVE Overnight, had restless legs and back pain. Vitals stable. Remains on 3 L chronically. No BM yet. WBC remains mildly elevated. Urine culture shows no growth. Renal sono was reported as normal, showing no stigmata of acute or chronic obstruction. Did get some IV lorazepam this AM. Is otherwise tolerating therapies well. Not much diuresis to date. 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 OBJECTIVE Vital Signs Date Time Temp Pulse Resp B/P Pulse Ox O2 Delivery O2 Flow Rate FiO2 07/27/16 07:42 99.6 89 18 112/68 92 Nasal cannula 07/25/16 15:58 3.00 I & O 07/26/16 07/27/16 Cumulative From/Thru 19:00 07:00 07/25/16 10:05 - 07/27/16 06:04 Intake Total 900 ml 650 ml 3087 ml Output Total 1050 ml 450 ml 4100 ml Balance -150 ml 200 ml -1013 ml GEN: Awake, alert, oriented, a bit groggy from lorazepam NAD at present. HEENT: EOMI, clear sclerae, somewhat dry oral mucosa. CV: RRR S1 S2 normal with no murmur LUNGS: Diminished throughout. No R/R/W. ABD: Soft, NT/ND with normal bowel sounds. : Swan EXTR: 2+ BLE edema. Weeping has stopped. Marked pedal edema, L > R INTEG: Punctate lesions BLE with weeping on admit but improving. Secondary excoriations healing. Surrounding erythema improving. Large bulla, dorsum of right foot already resolving. MS: Pain on palpation of lumbar spine. Pain with supine positioning. NEURO: No focal motor neuro deficit. Weight: 73.9 kg (admit weight 74.6 kg) Lab-Past 14 Days, 35 Results 07/25/16 09:43: Absolute Band Neutrophils 0.2, Alanine Aminotransferase (ALT/SGPT) 59, Albumin 4.1, Albumin/Globulin Ratio 1.108, Alkaline Phosphatase 88, Anion Gap 20.4H, Aspartate Amino Transf (AST/SGOT) 52H, BUN/Creatinine Ratio 17, Band Neutrophils % 1, Basophils # (Auto) , Basophils # (Manual) 0.0, Basophils % ( Manual) 0, Basophils (%) (Auto) , Blood Morphology Comment Normal, Blood Urea Nitrogen 19H, Calcium Level 9.6, Calcium/Ionized Calcium Ratio 4.0, Calculated Osmolality 274L, Carbon Dioxide Level 32H, Chloride Level 92L, Creatine Kinase MB 5.1, Creatinine 1.10, Differential Total Cells Counted 100, Eosinophils # 0.3 , Eosinophils # (Auto) , Eosinophils % (Manual) 2, Eosinophils (%) (Auto) , Estimat Glomerular Filtration Rate 80.1, Estimated GFR (Non- 66.2, Glucose Level 96, Hematocrit 44.50, Hemoglobin 14.4, Lymphocytes # 1.5, Lymphocytes # (Auto) , Lymphocytes % (Manual) 9L, Lymphocytes (%) (Auto) , Mean Corpuscular Hemoglobin 31.4, Mean Corpuscular Hemoglobin Concent 32.4, Mean Corpuscular Volume 97, Mean Platelet Volume 9.9H, Monocytes # 1.1, Monocytes # ( Auto) , Monocytes % (Manual) 7, Monocytes (%) (Auto) , HU-Hlm-E-Type Natriuretic Peptide 462H, Neutrophils # 13.3, Neutrophils # (Auto) , Neutrophils (%) (Auto) , Platelet Count 259, Potassium Level 3.6, Prothromb Time International Ratio 1.1, Prothrombin Time 12.1, Red Blood Count 4.59, Red Cell Distribution Width 12.8, Segmented Neutrophils % 81H, Sodium Level 141, Thyroid Stimulating Hormone (TSH) 1.56, Total Bilirubin 1.0, Total Creatine Kinase 245*H, Total Protein 7.8, Troponin I < 0.012, White Blood Count 16.43H 07/25/16 10:43: 25-Hydroxy Vitamin D Total < 12.8L 07/25/16 11:05: Urine Bacteria 1+, Urine Bilirubin Negative, Urine Blood 3+H, Urine Clarity Clear, Urine Collection Type Catheter, Urine Color Yellow, Urine Glucose (UA) Negative, Urine Hyaline Casts 2+H, Urine Ketones Negative, Urine Leukocyte Esterase 1+H, Urine Microscopic RBC >100, Urine Nitrite Negative, Urine Protein Negative, Urine Specific [place] 1.020, Urine Squamous Epithelial Cells 2-5, Urine Urobilinogen 1.0, Urine WBC 5-10H, Urine pH 5.5, Volume Urine Centrifuged 12 ml 07/26/16 05:30: Albumin 3.1#L, Anion Gap 10.3, Basophils # (Auto) 0.0, Basophils (%) (Auto) 0, Blood Urea Nitrogen 18, Calcium Level 8.8, Carbon Dioxide Level 36H, Chloride Level 95L, Creatinine 0.92, Eosinophils # (Auto) 0.3, Eosinophils (%) (Auto) 2, Estimat Glomerular Filtration Rate 98.4, Estimated GFR (Non- 81.3, Glucose Level 96, Hematocrit 38.90L, Hemoglobin 12.7L, Lymphocytes # (Auto ) 1.0, Lymphocytes (%) (Auto) 8L, Mean Corpuscular Hemoglobin 31.8, Mean Corpuscular Hemoglobin Concent 32.6, Mean Corpuscular Volume 97, Mean Platelet Volume 9.6H, Monocytes # (Auto) 1.2, Monocytes (%) (Auto) 9, Neutrophils # (Auto ) 10.4, Neutrophils (%) (Auto) 80H, Platelet Count 224, Potassium Level 3.4L, Red Blood Count 4.00L, Red Cell Distribution Width 12.4, Sodium Level 138, White Blood Count 12.95H, C-Reactive Protein 4.70H, Magnesium Level 2.1, Phosphorus Level 3.8 07/26/16 14:30: Urine Bacteria Rare, Urine Bilirubin Negative, Urine Blood 3+H, Urine Clarity Cloudy, Urine Collection Type Catheter, Urine Color Dark yellow, Urine Glucose ( UA) Negative, Urine Ketones Negative, Urine Leukocyte Esterase 1+H, Urine Microscopic RBC >100, Urine Nitrite Negative, Urine Protein Negative, Urine Specific [place] 1.015, Urine Squamous Epithelial Cells 0-2, Urine Urobilinogen 2.0H, Urine WBC 5-10H, Urine pH 7.0, Volume Urine Centrifuged 12 ml 07/27/16 05:25: Albumin 3.3L, Anion Gap 10.6, Basophils # (Auto) 0.0, Basophils (%) (Auto) 0, Blood Urea Nitrogen 17, Calcium Level 9.1, Carbon Dioxide Level 35H, Chloride Level 95L, Creatinine 0.83, Eosinophils # (Auto) 0.3, Eosinophils (%) (Auto) 2, Estimat Glomerular Filtration Rate 110.8, Estimated GFR (Non- 91.6, Glucose Level 89, Hematocrit 40.50, Hemoglobin 13.1L, Lymphocytes # (Auto ) 1.1, Lymphocytes (%) (Auto) 8L, Magnesium Level 2.2, Mean Corpuscular Hemoglobin 31.4, Mean Corpuscular Hemoglobin Concent 32.3, Mean Corpuscular Volume 97, Mean Platelet Volume 9.5, Monocytes # (Auto) 1.2, Monocytes (%) (Auto ) 9, Neutrophils # (Auto) 10.9, Neutrophils (%) (Auto) 80H, Phosphorus Level 3.6 , Platelet Count 233, Potassium Level 4.0, Red Blood Count 4.17L, Red Cell Distribution Width 12.4, Sodium Level 137, White Blood Count 13.56H MICRO 07/25 urine culture negative to date IMAGING 07/27/16 US RENAL BILATERAL INDICATION: Urinary retention. COMPARISON STUDY: CT of the lumbar spine from 2 days ago. FINDINGS: The bilateral renal ultrasound demonstrates both kidneys to be of normal size, shape, texture, and echogenicity. No calculus or hydronephrosis is present. The right kidney measures 9 x 5 x 4 cm and the left kidney measures 9.4 x 4.4 x 3.7 cm. IMPRESSION: Normal renal ultrasound. 07/25/16 ECHO: PENDING. Prelim: LVEF 50-55%. 07/25/16 CT LUMBAR SPINE WO PROCEDURE: CT lumbar spine without contrast. TECHNIQUE: Multiple contiguous axial images were obtained through the lumbar spine without the use of intravenous contrast. Sagittal and coronal reformations were then performed. INDICATION: [id number] low back pain with leg weakness. FINDINGS: There is left convexity degenerative lumbar rotoscoliosis. The vertebral body heights are well maintained. There is multilevel degenerative disc disease with a vacuum disc at essentially every level of the lumbar spine. There is lower lumbar hypertrophic degenerative facet disease. At L3-L4, there appears to be broad-based annular bulging with thickening of the ligamentum flavum. There is at least [id number] central spinal stenosis with encroachment upon the lateral recesses bilaterally as well as right neuroforaminal encroachment. Similar findings are seen at L4- L5 and to a lesser degree at L5-S1. There is ectasia of the infrarenal abdominal aorta up to 2.7 cm. IMPRESSION: Moderately severe diffuse lumbar spondylosis and multilevel degenerative disc disease with a left convexity degenerative lumbar rotoscoliosis. There is [id number] spinal stenosis at L3-L4 and L4-L5. This could be better evaluated with MRI. 07/25/16 CHEST 1 VIEW, AP/PA ONLY* INDICATION: Shortness of breath EXAMINATION: Portable chest at 10:48 AM Heart size and pulmonary vascularity are normal. Lungs are clear. There are no effusions or pneumothoraces. IMPRESSION: Negative chest. ASSESSMENT Aurelio Herrera is a 71 year old male admitted from ED 07/25 after 3 falls at home attributed to leg weakness and tripping. He has acute on chronic lower back pain and has been dealing with worsening BLE edema of undetermined cause. He has had urinary retention and swan was placed in office by PCP 2 days prior to admit. He has other chronic problems including stage III COPD. PLAN * Falls at home: Low vitamin D noted. PT/OT eval and treat. * Acute on Chronic Lower Back Pain, Lumbar Spinal Stenosis (L3-4, L4-5): Red flags: age, left leg weakness. Unable to tolerate MRI that had been ordered outpatient prior to admit. CT L-spine results as noted. PCP plans to refer to Dr. Paniagua in [place]. Oxycodone/acetaminophen, lidoderm for pain. * BLE Edema: Uncertain cause. Could be due to fluid retention caused by lung disease. Has not had prior cardiac workup. Renal function appears preserved and there does not appear to be significant proteinuria. Echo pending but EF only mildly low at 50-55%. NT-pro-BNP only mildly elevated. JODY lopez. Furosemide. * Leukocytosis: Improved from admit though he has a mild persistent elevation. WBC 16.43 on admit. 81% N with 1% bands. LE positive on UA but nitrite negative. Monitor closely for signs of infection. * Constipation: Bowel regimen * Vitamin D Deficiency: Started ergocalciferol 50,000 IU weekly x 6 weeks. Follow with 2000 units PO daily. Recheck in 6 weeks. * Anxiety: Somewhat debilitating for him on admit. Offered lorazepam which was helpful. Monitor closely. Avoid prescribing at discharge since he is not on this at home. * F/E/N: 2 gram sodium diet. Peripheral IV. I&O, daily weight. * Prophylaxis: Enoxaparin * Code Status: Full * Dispo: Met inpatient criteria 07/26. Expect 3 day stay then will need skilled care. CHRONIC ISSUES * Urinary retention. Tamsulosin, swan. Changed catheter 07/26 due to leakage. * Anxiety: Citalopram. Permit lorazepam, though monitor use closely. * Depression: Citalopram * Chronic Pack Pain: Oxycodone/acetaminophen * COPD Stage III: Albuterol PRN. Sub advair for symbicort. Sub tiotropium for Stiolto. SONIA CERVANTES MD July 27, 2016 09:40
[2016-07-27] MEDS: TAMSULOSIN 0.4 MG (FLOMAX) CAP PO SCH (10:15)
--- NOTE | 2016-07-27 11:25 | NUR ---
RESTING WITH EYES CLOSED. RESP REGULAR.
--- NOTE | 2016-07-27 12:31 | PT Daily Note Inpatient (E) ---
PT Daily Treatment Service Date/Time 07/27/16, 12:26 Medical Diagnosis: (1) Frequent falls ICD Code: R29.6 (2) Bilateral lower extremity edema ICD Code: R60.0 (3) Chronic back pain ICD Code: 724.5 (4) Strain of back muscle ICD Code: 847.9 Physical Therapy: (1) Chronic back pain ICD Code: 724.5 (2) Frequent falls ICD Code: R29.6 Precaution/Isolation: Standard Precautions Resuscitation Status: Full Code Fall Level: High Risk 51 or greater Subjective Patient resting in bed on 3L 02 via NC. Minimal deep breathing noted. Patient initially agitated but after explanation from PT about what we wanted to work on patient was agreeable to working with PT. Patient rates pain as 1-2/10. PT notes large impression in bed, improved lower extremity positioning by placing extra pillows underneath patient's LE to promote improve positioning for low back and decreasing LE swelling at the end of treatment. Catheter full, [employer] emptied it, patient felt better per his report. Oxygen Delivery: Nasal cannula O2 liters/minute: 3 Treatments Sit, Stand, Supine: Supine Assistance: AAROM, AROM Repetition: 2 x 10 Exercise: AP, Hip Abduction, Hip Adduction, SAQ Comment Patient max assistance of 2 for scooting up in bed. Comment Patient did not want to complete sitting exercises secondary to not having a good day. Mild 02 desaturation but improved and maintained verbal cues for diaphragmatic breathing. Education/Plan Education Education Needs: Breathing Technique Assessment Patient tolerated LE exercises well but requires cues for breathing strategy to assist him in maintaining 02 saturation . Plan Continue to progress ROM/strengthening, transfers as patient tolerates. Patient will be seen: Daily Saturday-Saturday Coding Time In: 1138 Time Out: 1210 Total Minutes: 32 Charges: 41473 Exercise Therp 15 m Patient resting in bed with call light in reach. TEA JO PT July 27, 2016 12:31
[2016-07-27 15:31] VITALS: BP 134/79
--- NOTE | 2016-07-27 16:53 | NUR ---
UP TO COMMODE WITH 2 ASSIST. MILD NOSEBLEED WHEN UP. STATES TRYING TO PICK NOSE. OINTMENT APPLIED TO NOSE. ATTEMPTED TO HAVE BM WITH NO RESULT. ENCOURAGED TO CONTINUE BOWEL REGIMEN.
--- NOTE | 2016-07-27 17:35 | OT Daily Note Inpatient (E) ---
OT Daily Treatment Service Date/Time 07/27/16, 17:35 Primary Diagnosis: (1) Frequent falls ICD Code: R29.6 (2) Bilateral lower extremity edema ICD Code: R60.0 (3) Chronic back pain ICD Code: 724.5 (4) Strain of back muscle ICD Code: 847.9 Treatment Diagnosis: (1) Weakness ICD Code: R53.1 Onset Date: 07/25/16 Start of Care Date: July 26, 2016 Precaution/Isolation: Standard Precautions Fall Level: High Risk 51 or greater Resuscitation Status: Full Code Current Activity: Agrees to participate Pt reports he is just tired. Pain Level: 0 Oxygen Needed: Nasal cannula O2 liters/minute: 3 Treatments Strengthening Exercise Upper Extremity Strength Exerc : Comment Sitting up in bed, pt participated in BUE strengthening with use of green theraband. Following demonstration, pt able to complete exercises with proper technique. Completed 6 x 15 exercises with use of therapeutic rest breaks in between each set to ease shortness of breath. Educated and discussed importance of deep breathing during daily activities and exercises to ease breath. Following demonstration from therapist, pt able to complete with minimal cueing for proper technique. Encouraged pt to complete breathing throughout exercises. Pt in bed with call light in place following session. Education/Assessment Rehabilitation Potential: Good Following demonstration of deep breathing, pt able to apply with minimal cueing. Noted- pt demonstrates reduce BLE edema with use of TG shapes. CPT/G Codes Time In: 13:14 Time Out: 13:34 Total Minutes: 20 CPT Codes: 42410 Exercise Ther (04/06 ) SANDRA LIVE OT July 27, 2016 17:35
--- NOTE | 2016-07-27 20:21 | NUR ---
Pt found lying in be on 3 l/min NC, SPO2 90%, HR 92, RR 18 and mildly labored from abdominal pain. Pt given 2p Advair 115/21 via Spacer with mouth rinsed post Tx. Pt told me he was having thoughts of imminent doom due to abdominal issues and fpc COPD. Pt denied the need to talk to clergy and stated he "OK with God". VICKY Perez informed and she is in the room with Pt. Addendum: 07/27/16 at 2030 by Gonsalo Manuel RT BS clear before and after Tx
--- NOTE | 2016-07-27 20:25 | NUR ---
Notified by RT Robbi Oh that patient is having thoughts of imminent doom and some depression. While speaking with patient he states that he was having some thoughts earlier in the day of wanting to and possibly "ending it all", but states "I know I would never do that, I just don't have the guts." Discussed with patient what factors were contributing to these thoughts at these thoughts currently, and patient expresses current abdominal pain with cramping and need to have bowel movement, anxiety and difficulty breathing at times. Medication options given, patient accepting of these options (Percocet, MOM, Colace, and Ativan to be given; see MAR). This RN sat with patient and talked with him, held his hand, much positive reassurance given. Patient affirms that he is in better spirits at this time, thankful for current medication options as well as reassurance that staff is there if/when needed. Will continue to monitor.
[2016-07-27] MEDS: oxycODONE/ACETAMINOPHEN 10MG-325 MG (PERCOCET-10) TABLET PO PRN ×2 (20:33)
[2016-07-27] MEDS: LORazepam 1 MG (ATIVAN) TABLET PO PRN (20:33)
[2016-07-27] MEDS: PATCH REMOVAL TOP SCH (20:33)
--- NOTE | 2016-07-27 21:30 | NUR ---
Patient up to commode, has large soft BM on commode. States "You don't know how good I feel now." Daughter at bedside at this time. Will continue to monitor.
[2016-07-27 23:36] VITALS: BP 110/52
[2016-07-28 05:55] LABS: MEAN CORPUSCULAR HEMOGLOBIN 31.2 PG (26.0-34.0); MEAN CORPUSCULAR HGB CONC 32.5 g/dL (31.0-37.0); MEAN CORPUSCULAR VOLUME 96 FL (80-100); MEAN PLATELET VOLUME 9.8 FL (6.0-9.5); PLATELET COUNT 252 10^3uL (150-450); WHITE BLOOD COUNT 24.09 10^3uL (4.0-11.0)
[2016-07-28 06:31] LABS: BAND NEUTROPHILS % 3 % (0-6); SEGMENTED NEUTROPHILS % 90 % (51-67)
[2016-07-28 06:32] LABS: EOSINOPHILS % 0 % (0-4); LYMPHOCYTES # 1.7 #; MONOCYTES % 0 % (3-11); RBC MORPH NORMAL (NORMAL); TOTAL CELLS COUNTED 100
--- NOTE | 2016-07-28 06:34 | NUR ---
Patient has rested in bed since daughter left in the late evening, eyes closed and respirations even. Up this AM to weight chair with 1 assist. Returned to bed and to sleep. Remains on 3L/NC. No needs at this time.
[2016-07-28 06:50] LABS: ALBUMIN 3.2 g/dL (3.4-5.0); ANION GAP 15.6 MEQ/L (3-15)
[2016-07-28 08:16] VITALS: BP 113/64
[2016-07-28] MEDS: TIOTROPIUM 18 MCG/CAP (SPIRIVA) INHALER (5 CAPS) IH SCH ×2 (08:41→09:39)
[2016-07-28] MEDS: POTASSIUM CHLORIDE ER 20 MEQ TABLET PO SCH ×2 (08:41→17:45)
[2016-07-28] MEDS: LIDOCAINE (LIDODERM) 5% PATCH TOP SCH (09:00)
[2016-07-28] MEDS: FLUTICASONE/SALMETEROL HFA 115/21 MCG (ADVAIR) COMMON CANNISTER INH SCH ×2 (09:39→19:43)
[2016-07-28] MEDS: POLYETHYLENE GLYCOL 17 GM (MIRALAX) PACKET PO SCH (10:01)
[2016-07-28] MEDS: FUROSEMIDE 100 MG/10 ML (LASIX) VIAL IV SCH ×2 (10:01→14:30)
[2016-07-28] MEDS: DOCUSATE SODIUM 100 MG (COLACE) CAP PO SCH ×2 (10:02→20:45)
[2016-07-28] MEDS: NS FLUSH 3 ML DAILY IV SCH (10:02)
[2016-07-28] MEDS: TAMSULOSIN 0.4 MG (FLOMAX) CAP PO SCH (10:02)
[2016-07-28] MEDS: CITALOPRAM 40 MG (CELEXA) TABLET PO SCH (10:02)
[2016-07-28] MEDS: ENOXAPARIN 40 MG/0.4 ML (LOVENOX) SYR SC SCH (10:03)
--- NOTE | 2016-07-28 10:09 | Progress Note (E) ---
Progress Note SUBJECTIVE Overnight, no major issues. Tolerating therapies. Leg edema improving. Back pain still significant but improving. Daughter asks about continuing lorazepam... acknowledges that the anxiety is just related to environmental change/situational and he is not as anxious at home. Explained that on transition to skilled care, could continue low-dose lorazepam PRN but that it is best to avoid using this mcfp. Updated her and patient on other findings , plan of care. Plan to discharge to [facility] for rehab 07/30 since he will need a long course. On exam, appears more relaxed. Vitals stable. Afebrile. Urine cultures have been negative x 2. However, WBC is even more elevated, now 24.09 with 90% N and 3% bands. CRP has risen to 16.10. No definitive source of infection identified. Urine culture negative x 2. Erythematous areas of legs are continuing to improve though cellulitis remains a possible etiology. No change in respiratory status. Checking follow-up CXR and blood cultures and considering oral antibiotic for treatment of cellulitis if no other etiology found. OBJECTIVE Vital Signs Date Time Temp Pulse Resp B/P Pulse Ox O2 Delivery O2 Flow Rate FiO2 07/28/16 08:16 97.3 82 22 113/64 94 Nasal cannula 3L.00 I & O 07/27/16 07/28/16 Cumulative From/Thru 19:00 07:00 07/25/16 10:05 - 07/28/16 06:05 Intake Total 1089 ml 537 ml 4713 ml Output Total 2400 ml 2300 ml 8800 ml Balance -1311 ml -1763 ml -4087 ml GEN: Awake, alert, oriented, resting in bed comfortably. NAD at present. HEENT: EOMI, clear sclerae, somewhat dry oral mucosa. CV: RRR S1 S2 normal with no murmur LUNGS: Diminished throughout. No R/R/W. ABD: Soft, NT/ND with normal bowel sounds. : Swan EXTR: 2+ BLE edema. Weeping has stopped. Marked pedal edema was present on admit , L > R, but this is also improved. Compression hose on. INTEG: Punctate lesions BLE with weeping on admit but improving. Secondary excoriations healing. Surrounding erythema still present but improved since admit. Large bulla, dorsum of right foot already resolving. MS: Pain on palpation of lumbar spine. Pain with supine positioning. NEURO: No focal motor neuro deficit. Weight: 71.7 kg (admit weight 74.6 kg) Lab-Past 14 Days, 35 Results 07/25/16 09:43: Absolute Band Neutrophils 0.2, Alanine Aminotransferase (ALT/SGPT) 59, Albumin 4.1, Albumin/Globulin Ratio 1.108, Alkaline Phosphatase 88, Anion Gap 20.4H, Aspartate Amino Transf (AST/SGOT) 52H, BUN/Creatinine Ratio 17, Band Neutrophils % 1, Basophils # (Auto) , Basophils # (Manual) 0.0, Basophils % ( Manual) 0, Basophils (%) (Auto) , Blood Morphology Comment Normal, Blood Urea Nitrogen 19H, Calcium Level 9.6, Calcium/Ionized Calcium Ratio 4.0, Calculated Osmolality 274L, Carbon Dioxide Level 32H, Chloride Level 92L, Creatine Kinase MB 5.1, Creatinine 1.10, Differential Total Cells Counted 100, Eosinophils # 0.3 , Eosinophils # (Auto) , Eosinophils % (Manual) 2, Eosinophils (%) (Auto) , Estimat Glomerular Filtration Rate 80.1, Estimated GFR (Non- 66.2, Glucose Level 96, Hematocrit 44.50, Hemoglobin 14.4, Lymphocytes # 1.5, Lymphocytes # (Auto) , Lymphocytes % (Manual) 9L, Lymphocytes (%) (Auto) , Mean Corpuscular Hemoglobin 31.4, Mean Corpuscular Hemoglobin Concent 32.4, Mean Corpuscular Volume 97, Mean Platelet Volume 9.9H, Monocytes # 1.1, Monocytes # ( Auto) , Monocytes % (Manual) 7, Monocytes (%) (Auto) , QP-Vqf-F-Type Natriuretic Peptide 462H, Neutrophils # 13.3, Neutrophils # (Auto) , Neutrophils (%) (Auto) , Platelet Count 259, Potassium Level 3.6, Prothromb Time International Ratio 1.1, Prothrombin Time 12.1, Red Blood Count 4.59, Red Cell Distribution Width 12.8, Segmented Neutrophils % 81H, Sodium Level 141, Thyroid Stimulating Hormone (TSH) 1.56, Total Bilirubin 1.0, Total Creatine Kinase 245*H, Total Protein 7.8, Troponin I < 0.012, White Blood Count 16.43H 07/25/16 10:43: 25-Hydroxy Vitamin D Total < 12.8L 07/25/16 11:05: Urine Bacteria 1+, Urine Bilirubin Negative, Urine Blood 3+H, Urine Clarity Clear, Urine Collection Type Catheter, Urine Color Yellow, Urine Glucose (UA) Negative, Urine Hyaline Casts 2+H, Urine Ketones Negative, Urine Leukocyte Esterase 1+H, Urine Microscopic RBC >100, Urine Nitrite Negative, Urine Protein Negative, Urine Specific Overton 1.020, Urine Squamous Epithelial Cells 2-5, Urine Urobilinogen 1.0, Urine WBC 5-10H, Urine pH 5.5, Volume Urine Centrifuged 12 ml 07/26/16 05:30: Albumin 3.1#L, Anion Gap 10.3, Basophils # (Auto) 0.0, Basophils (%) (Auto) 0, Blood Urea Nitrogen 18, Calcium Level 8.8, Carbon Dioxide Level 36H, Chloride Level 95L, Creatinine 0.92, Eosinophils # (Auto) 0.3, Eosinophils (%) (Auto) 2, Estimat Glomerular Filtration Rate 98.4, Estimated GFR (Non- 81.3, Glucose Level 96, Hematocrit 38.90L, Hemoglobin 12.7L, Lymphocytes # (Auto ) 1.0, Lymphocytes (%) (Auto) 8L, Mean Corpuscular Hemoglobin 31.8, Mean Corpuscular Hemoglobin Concent 32.6, Mean Corpuscular Volume 97, Mean Platelet Volume 9.6H, Monocytes # (Auto) 1.2, Monocytes (%) (Auto) 9, Neutrophils # (Auto ) 10.4, Neutrophils (%) (Auto) 80H, Platelet Count 224, Potassium Level 3.4L, Red Blood Count 4.00L, Red Cell Distribution Width 12.4, Sodium Level 138, White Blood Count 12.95H, C-Reactive Protein 4.70H, Magnesium Level 2.1, Phosphorus Level 3.8 07/26/16 14:30: Urine Bacteria Rare, Urine Bilirubin Negative, Urine Blood 3+H, Urine Clarity Cloudy, Urine Collection Type Catheter, Urine Color Dark yellow, Urine Glucose ( UA) Negative, Urine Ketones Negative, Urine Leukocyte Esterase 1+H, Urine Microscopic RBC >100, Urine Nitrite Negative, Urine Protein Negative, Urine Specific Overton 1.015, Urine Squamous Epithelial Cells 0-2, Urine Urobilinogen 2.0H, Urine WBC 5-10H, Urine pH 7.0, Volume Urine Centrifuged 12 ml 07/27/16 05:25: Albumin 3.3L, Anion Gap 10.6, Basophils # (Auto) 0.0, Basophils (%) (Auto) 0, Blood Urea Nitrogen 17, Calcium Level 9.1, Carbon Dioxide Level 35H, Chloride Level 95L, Creatinine 0.83, Eosinophils # (Auto) 0.3, Eosinophils (%) (Auto) 2, Estimat Glomerular Filtration Rate 110.8, Estimated GFR (Non- 91.6, Glucose Level 89, Hematocrit 40.50, Hemoglobin 13.1L, Lymphocytes # (Auto ) 1.1, Lymphocytes (%) (Auto) 8L, Magnesium Level 2.2, Mean Corpuscular Hemoglobin 31.4, Mean Corpuscular Hemoglobin Concent 32.3, Mean Corpuscular Volume 97, Mean Platelet Volume 9.5, Monocytes # (Auto) 1.2, Monocytes (%) (Auto ) 9, Neutrophils # (Auto) 10.9, Neutrophils (%) (Auto) 80H, Phosphorus Level 3.6 , Platelet Count 233, Potassium Level 4.0, Red Blood Count 4.17L, Red Cell Distribution Width 12.4, Sodium Level 137, White Blood Count 13.56H 07/28/16 05:10: Albumin 3.2L, Anion Gap 15.6H, Basophils # (Auto) , Basophils (%) (Auto) , Blood Urea Nitrogen 24H, Calcium Level 9.3, Carbon Dioxide Level 35H, Chloride Level 93L, Creatinine 0.96, Eosinophils # (Auto) , Eosinophils (%) (Auto) , Estimat Glomerular Filtration Rate 93.7, Estimated GFR (Non- 77.4, Glucose Level 108#, Hematocrit 42.50, Hemoglobin 13.8, Lymphocytes # (Auto ) , Lymphocytes (%) (Auto) , Mean Corpuscular Hemoglobin 31.2, Mean Corpuscular Hemoglobin Concent 32.5, Mean Corpuscular Volume 96, Mean Platelet Volume 9.8H, Monocytes # (Auto) , Monocytes (%) (Auto) , Neutrophils # (Auto) , Neutrophils ( %) (Auto) , Phosphorus Level 3.8, Platelet Count 252, Potassium Level 4.3, Red Blood Count 4.43L, Red Cell Distribution Width 12.6, Sodium Level 139, White Blood Count 24.09H, Absolute Band Neutrophils 0.7, Band Neutrophils % 3, Basophils # (Manual) 0.0, Basophils % (Manual) 0, Blood Morphology Comment Normal, C-Reactive Protein 16.10H, Differential Total Cells Counted 100, Eosinophils # 0.0, Eosinophils % (Manual) 0, Lymphocytes # 1.7, Lymphocytes % ( Manual) 7L, Metamyelocytes % 0, Monocytes # 0.0, Monocytes % (Manual) 0L, Neutrophils # 21.7, Segmented Neutrophils % 90H MICRO 07/26 urine culture negative to date 07/25 urine culture negative to date IMAGING 07/27/16 US RENAL BILATERAL INDICATION: Urinary retention. COMPARISON STUDY: CT of the lumbar spine from 2 days ago. FINDINGS: The bilateral renal ultrasound demonstrates both kidneys to be of normal size, shape, texture, and echogenicity. No calculus or hydronephrosis is present. The right kidney measures 9 x 5 x 4 cm and the left kidney measures 9.4 x 4.4 x 3.7 cm. IMPRESSION: Normal renal ultrasound. 07/25/16 ECHO: PENDING. Prelim: LVEF 50-55%. 07/25/16 CT LUMBAR SPINE WO PROCEDURE: CT lumbar spine without contrast. TECHNIQUE: Multiple contiguous axial images were obtained through the lumbar spine without the use of intravenous contrast. Sagittal and coronal reformations were then performed. INDICATION: Relyp-ew-wocvhct low back pain with leg weakness. FINDINGS: There is left convexity degenerative lumbar rotoscoliosis. The vertebral body heights are well maintained. There is multilevel degenerative disc disease with a vacuum disc at essentially every level of the lumbar spine. There is lower lumbar hypertrophic degenerative facet disease. At L3-L4, there appears to be broad-based annular bulging with thickening of the ligamentum flavum. There is at least [id number] central spinal stenosis with encroachment upon the lateral recesses bilaterally as well as right neuroforaminal encroachment. Similar findings are seen at L4- L5 and to a lesser degree at L5-S1. There is ectasia of the infrarenal abdominal aorta up to 2.7 cm. IMPRESSION: Moderately severe diffuse lumbar spondylosis and multilevel degenerative disc disease with a left convexity degenerative lumbar rotoscoliosis. There is hrxbuqbd-[id number]-fwrwgr spinal stenosis at L3-L4 and L4-L5. This could be better evaluated with MRI. 07/25/16 CHEST 1 VIEW, AP/PA ONLY* INDICATION: Shortness of breath EXAMINATION: Portable chest at 10:48 AM Heart size and pulmonary vascularity are normal. Lungs are clear. There are no effusions or pneumothoraces. IMPRESSION: Negative chest. ASSESSMENT Aurelio Herrera is a 71 year old male admitted from ED 07/25 after 3 falls at home attributed to leg weakness and tripping. He has acute on chronic lower back pain and has been dealing with worsening BLE edema of undetermined cause. He has had urinary retention and swan was placed in office by PCP 2 days prior to admit. He has other chronic problems including stage III COPD. PLAN * Falls at home: Low vitamin D noted. PT/OT eval and treat. * Acute on Chronic Lower Back Pain, Lumbar Spinal Stenosis (L3-4, L4-5): Red flags: age, left leg weakness. Unable to tolerate MRI that had been ordered outpatient prior to admit. CT L-spine results as noted. PCP plans to refer to Dr. Paniagua in [place]. Oxycodone/acetaminophen, lidoderm for pain. * BLE Edema: Uncertain cause. Could be due to fluid retention caused by lung disease. Has not had prior cardiac workup. Renal function appears preserved and there does not appear to be significant proteinuria. Echo pending but EF only mildly low at 50-55%. NT-pro-BNP only mildly elevated. JODY lopez. Furosemide. * Leukocytosis, Elevated CRP: Worsening. Infectious vs. inflammatory. UA negative for infection x 2. Check follow-up CXR. Check blood cultures. If CXR negative, consider adding oral antibiotic to treat cellulitis. * Constipation: Improved. Bowel regimen * Vitamin D Deficiency: Started ergocalciferol 50,000 IU weekly x 6 weeks. Follow with 2000 units PO daily. Recheck in 6 weeks. * Anxiety: Improved. Somewhat debilitating for him on admit. Offered lorazepam which was helpful. Monitor closely. At discharge to care home, may have to keep low-dose PRN available to help him with stress of changing environment. Would avoid continuing this long-term. * F/E/N: 2 gram sodium diet. Peripheral IV. I&O, daily weight. * Prophylaxis: Enoxaparin * Code Status: Full * Dispo: Met inpatient criteria 07/26. Expect 3 day stay then will need skilled care. CHRONIC ISSUES * Anxiety: Citalopram. Permit lorazepam, though monitor use closely. * Depression: Citalopram * Chronic Pack Pain: Oxycodone/acetaminophen * COPD Stage III: Albuterol PRN. Sub advair for symbicort. Sub tiotropium for Stiolto. SONIA CERVANTES MD July 28, 2016 10:09
[2016-07-28] MEDS: oxycODONE/ACETAMINOPHEN 10MG-325 MG (PERCOCET-10) TABLET PO PRN (10:33)
--- NOTE | 2016-07-28 11:05 | PT Daily Note Inpatient (E) ---
PT Daily Treatment Service Date/Time 07/28/16, 11:04 Medical Diagnosis: (1) Frequent falls ICD Code: R29.6 (2) Bilateral lower extremity edema ICD Code: R60.0 (3) Chronic back pain ICD Code: 724.5 (4) Strain of back muscle ICD Code: 847.9 Physical Therapy: (1) Chronic back pain ICD Code: 724.5 (2) Frequent falls ICD Code: R29.6 Precaution/Isolation: Standard Precautions Resuscitation Status: Full Code Fall Level: High Risk 51 or greater Subjective Oxygen Delivery: Nasal cannula O2 liters/minute: 3L Education/Plan Plan Patient will be seen: Daily Saturday-Saturday Coding No Treatment Provide Reason: Refuses therapy (Patient politely declined therapy requesting to sleep secondary to having a busy mornining and having increased pain from transferring earlier. PT encouraged patient to continue with his ROM exercise in bed to promote decreased stiffness in his joints. ) TEA JO PT July 28, 2016 11:05
[2016-07-28] MEDS: cefTRIAXone SODIUM 1,000 MG in SODIUM CHLORIDE 50 ML IV SCH (13:29)
[2016-07-28] MEDS ORDERED: ceFAZolin 1000 MG (ANCEF) VIAL ONE (13:37)
[2016-07-28] MEDS ORDERED: SODIUM CHLORIDE 50 ML IV ONE (13:45)
[2016-07-28] MEDS ORDERED: cefTRIAXone 1 GM (ROCEPHIN) VIAL ONE (13:46)
--- NOTE | 2016-07-28 13:58 | NUR ---
Orders were written for 1000 mg of Rocephin IV. This nurse punched hole in NS bag when spiking for administration of med. Pulled Ancef Vial by accident to replace Iv med. Ancef was not given.
[2016-07-28] MEDS: AZITHROMYCIN VIAL 500 MG in SODIUM CHLORIDE 250 ML IV SCH (14:30)
--- NOTE | 2016-07-28 14:53 | Diagnostic Imaging Report ---
EXAMINATION: CHEST (PA AND LATERAL) CLINICAL INDICATION: 71-year-old male, leukocytosis. History of COPD. COMPARISON: July 25, 2016. FINDINGS: Stable overall appearance of the cardiomediastinal silhouette. There is no identified pneumothorax. There is increasing airspace consolidation in the right lower lobe. There is elevation of the right hemidiaphragm. There is no identified sizable pleural effusion. There are disc degenerative changes of the thoracic spine. IMPRESSION: 1. Increasing right lower lobe airspace consolidation which may relate to infiltrate such as aspiration or pneumonia. There also may be components of atelectasis. Additional alveolar consolidative processes would also be considered in the differential diagnosis. Correlation clinically and possible left resolution recommended. Dictated by: Dictated on workstation # [id number]
[2016-07-28 15:35] VITALS: BP 113/69
--- NOTE | 2016-07-28 19:46 | NUR ---
Pt found sleeping in bed on 3 l/min NC, SPO2 90%, HR 81, RR 16 and non labored with clear BS before and after 2p Advair 115/21 via spacer. Mouth rinsed post Tx.
[2016-07-28] MEDS: guaiFENesin ER 600 MG (MUCINEX) TAB PO SCH (20:45)
[2016-07-28] MEDS: PATCH REMOVAL TOP SCH (20:49)
[2016-07-28 23:43] VITALS: BP 100/62
[2016-07-29] MEDS: oxycODONE/ACETAMINOPHEN 10MG-325 MG (PERCOCET-10) TABLET PO PRN ×2 (05:30→19:54)
[2016-07-29 06:09] LABS: MEAN CORPUSCULAR VOLUME 95 FL (80-100); MEAN PLATELET VOLUME 10.1 FL (6.0-9.5); PLATELET COUNT 283 10^3uL (150-450); WHITE BLOOD COUNT 22.77 10^3uL (4.0-11.0)
--- NOTE | 2016-07-29 06:21 | NUR ---
Patient up to commode in early evening, has large soft BM. This AM is up to weight chair and takes several minutes to recover from getting up. Percocet given x1 for back pain. Has concerns about oxygen needs with activity and if he needs to increase his o2 usage. Patient resting in bed at this time without needs.
[2016-07-29 06:42] LABS: MEAN CORPUSCULAR HEMOGLOBIN 31.4 PG (26.0-34.0)
[2016-07-29 06:43] LABS: ALBUMIN 3.5 g/dL (3.4-5.0); ANION GAP 18.6 MEQ/L (3-15)
[2016-07-29 06:56] LABS: BAND NEUTROPHILS % 4 % (0-6); EOSINOPHILS % 0 % (0-4); LYMPHOCYTES # 1.4 #; MONOCYTES # 1.3 #; MONOCYTES % 6 % (3-11); RBC MORPH NORMAL (NORMAL); SEGMENTED NEUTROPHILS % 84 % (51-67); TOTAL CELLS COUNTED 100
[2016-07-29 08:14] VITALS: BP 122/76
[2016-07-29] MEDS: NS FLUSH 3 ML DAILY IV SCH (09:00)
[2016-07-29] MEDS: guaiFENesin ER 600 MG (MUCINEX) TAB PO SCH ×2 (09:00→21:28)
[2016-07-29] MEDS: CITALOPRAM 40 MG (CELEXA) TABLET PO SCH (09:05)
[2016-07-29] MEDS: POTASSIUM CHLORIDE ER 20 MEQ TABLET PO SCH ×2 (09:05→17:35)
[2016-07-29] MEDS: DOCUSATE SODIUM 100 MG (COLACE) CAP PO SCH ×2 (09:06→21:27)
[2016-07-29] MEDS: FUROSEMIDE 100 MG/10 ML (LASIX) VIAL IV SCH ×2 (09:07→15:11)
[2016-07-29] MEDS: ENOXAPARIN 40 MG/0.4 ML (LOVENOX) SYR SC SCH (09:08)
[2016-07-29] MEDS: LIDOCAINE (LIDODERM) 5% PATCH TOP SCH (09:09)
[2016-07-29] MEDS: NS FLUSH 10 ML PRN IV ×2 (09:09→14:06)
[2016-07-29] MEDS: POLYETHYLENE GLYCOL 17 GM (MIRALAX) PACKET PO SCH (09:09)
--- NOTE | 2016-07-29 09:10 | NUR ---
Pt laying quietly in bed. Saline lock flushes without redness or edema. Pt refuses Mucinex this am. He takes his other pills one at a time. He coughs a couple of times while taking his medicines and must stop to catch his breath a couple times. Pt refuses a bath at this time.
[2016-07-29] MEDS: FLUTICASONE/SALMETEROL HFA 115/21 MCG (ADVAIR) COMMON CANNISTER INH SCH ×2 (09:34→19:57)
[2016-07-29] MEDS: TIOTROPIUM 18 MCG/CAP (SPIRIVA) INHALER (5 CAPS) IH SCH (09:34)
[2016-07-29] MEDS: TAMSULOSIN 0.4 MG (FLOMAX) CAP PO SCH (10:26)
--- NOTE | 2016-07-29 10:30 | NUR ---
Pt resting in bed. Declines the need for prn Ativan.
--- NOTE | 2016-07-29 12:18 | Progress Note (E) ---
Progress Note SUBJECTIVE No issues reported overnight. Tolerating antibiotics. Blood cultures negative to date. Sputum culture pending. This AM, feels subjectively a bit short of breath. Updated him on findings, plan of care. Encouraged him to be out of bed more. WBC still elevated but improved from 24 to 22.77. Chemistry stable. OBJECTIVE Vital Signs Date Time Temp Pulse Resp B/P Pulse Ox O2 Delivery O2 Flow Rate FiO2 07/29/16 08:14 97.9 85 16 122/76 93 Nasal cannula 07/28/16 15:35 3L.00 I & O 07/28/16 07/29/16 Cumulative From/Thru 19:00 07:00 07/25/16 10:05 - 07/29/16 06:14 Intake Total 700 ml 1387 ml 6800 ml Output Total 1100 ml 1300 ml 79346 ml Balance -400 ml 87 ml -4400 ml GEN: Awake, alert, oriented, resting in bed comfortably. NAD at present. HEENT: EOMI, clear sclerae, somewhat dry oral mucosa. CV: RRR S1 S2 normal with no murmur LUNGS: Diminished throughout. No R/R/W. ABD: Soft, NT/ND with normal bowel sounds. : Swan EXTR: 1+ BLE edema. Weeping has stopped. Marked pedal edema was present on admit , L > R, but this is also improved. Compression hose on. INTEG: Punctate lesions BLE with weeping on admit but improving. Secondary excoriations healing. Surrounding erythema resolving. Large bulla, dorsum of right foot, resolving. MS: Pain on palpation of lumbar spine. Pain with supine positioning. NEURO: No focal motor neuro deficit. Weight: 70.6 kg (admit weight 74.6 kg) Lab-Past 14 Days, 35 Results 07/25/16 09:43: Absolute Band Neutrophils 0.2, Alanine Aminotransferase (ALT/SGPT) 59, Albumin 4.1, Albumin/Globulin Ratio 1.108, Alkaline Phosphatase 88, Anion Gap 20.4H, Aspartate Amino Transf (AST/SGOT) 52H, BUN/Creatinine Ratio 17, Band Neutrophils % 1, Basophils # (Auto) , Basophils # (Manual) 0.0, Basophils % ( Manual) 0, Basophils (%) (Auto) , Blood Morphology Comment Normal, Blood Urea Nitrogen 19H, Calcium Level 9.6, Calcium/Ionized Calcium Ratio 4.0, Calculated Osmolality 274L, Carbon Dioxide Level 32H, Chloride Level 92L, Creatine Kinase MB 5.1, Creatinine 1.10, Differential Total Cells Counted 100, Eosinophils # 0.3 , Eosinophils # (Auto) , Eosinophils % (Manual) 2, Eosinophils (%) (Auto) , Estimat Glomerular Filtration Rate 80.1, Estimated GFR (Non- 66.2, Glucose Level 96, Hematocrit 44.50, Hemoglobin 14.4, Lymphocytes # 1.5, Lymphocytes # (Auto) , Lymphocytes % (Manual) 9L, Lymphocytes (%) (Auto) , Mean Corpuscular Hemoglobin 31.4, Mean Corpuscular Hemoglobin Concent 32.4, Mean Corpuscular Volume 97, Mean Platelet Volume 9.9H, Monocytes # 1.1, Monocytes # ( Auto) , Monocytes % (Manual) 7, Monocytes (%) (Auto) , KZ-Eoc-S-Type Natriuretic Peptide 462H, Neutrophils # 13.3, Neutrophils # (Auto) , Neutrophils (%) (Auto) , Platelet Count 259, Potassium Level 3.6, Prothromb Time International Ratio 1.1, Prothrombin Time 12.1, Red Blood Count 4.59, Red Cell Distribution Width 12.8, Segmented Neutrophils % 81H, Sodium Level 141, Thyroid Stimulating Hormone (TSH) 1.56, Total Bilirubin 1.0, Total Creatine Kinase 245*H, Total Protein 7.8, Troponin I < 0.012, White Blood Count 16.43H 07/25/16 10:43: 25-Hydroxy Vitamin D Total < 12.8L 07/25/16 11:05: Urine Bacteria 1+, Urine Bilirubin Negative, Urine Blood 3+H, Urine Clarity Clear, Urine Collection Type Catheter, Urine Color Yellow, Urine Glucose (UA) Negative, Urine Hyaline Casts 2+H, Urine Ketones Negative, Urine Leukocyte Esterase 1+H, Urine Microscopic RBC >100, Urine Nitrite Negative, Urine Protein Negative, Urine Specific Thornton 1.020, Urine Squamous Epithelial Cells 2-5, Urine Urobilinogen 1.0, Urine WBC 5-10H, Urine pH 5.5, Volume Urine Centrifuged 12 ml 07/26/16 05:30: Albumin 3.1#L, Anion Gap 10.3, Basophils # (Auto) 0.0, Basophils (%) (Auto) 0, Blood Urea Nitrogen 18, Calcium Level 8.8, Carbon Dioxide Level 36H, Chloride Level 95L, Creatinine 0.92, Eosinophils # (Auto) 0.3, Eosinophils (%) (Auto) 2, Estimat Glomerular Filtration Rate 98.4, Estimated GFR (Non- 81.3, Glucose Level 96, Hematocrit 38.90L, Hemoglobin 12.7L, Lymphocytes # (Auto ) 1.0, Lymphocytes (%) (Auto) 8L, Mean Corpuscular Hemoglobin 31.8, Mean Corpuscular Hemoglobin Concent 32.6, Mean Corpuscular Volume 97, Mean Platelet Volume 9.6H, Monocytes # (Auto) 1.2, Monocytes (%) (Auto) 9, Neutrophils # (Auto ) 10.4, Neutrophils (%) (Auto) 80H, Platelet Count 224, Potassium Level 3.4L, Red Blood Count 4.00L, Red Cell Distribution Width 12.4, Sodium Level 138, White Blood Count 12.95H, C-Reactive Protein 4.70H, Magnesium Level 2.1, Phosphorus Level 3.8 07/26/16 14:30: Urine Bacteria Rare, Urine Bilirubin Negative, Urine Blood 3+H, Urine Clarity Cloudy, Urine Collection Type Catheter, Urine Color Dark yellow, Urine Glucose ( UA) Negative, Urine Ketones Negative, Urine Leukocyte Esterase 1+H, Urine Microscopic RBC >100, Urine Nitrite Negative, Urine Protein Negative, Urine Specific Thornton 1.015, Urine Squamous Epithelial Cells 0-2, Urine Urobilinogen 2.0H, Urine WBC 5-10H, Urine pH 7.0, Volume Urine Centrifuged 12 ml 07/27/16 05:25: Albumin 3.3L, Anion Gap 10.6, Basophils # (Auto) 0.0, Basophils (%) (Auto) 0, Blood Urea Nitrogen 17, Calcium Level 9.1, Carbon Dioxide Level 35H, Chloride Level 95L, Creatinine 0.83, Eosinophils # (Auto) 0.3, Eosinophils (%) (Auto) 2, Estimat Glomerular Filtration Rate 110.8, Estimated GFR (Non- 91.6, Glucose Level 89, Hematocrit 40.50, Hemoglobin 13.1L, Lymphocytes # (Auto ) 1.1, Lymphocytes (%) (Auto) 8L, Magnesium Level 2.2, Mean Corpuscular Hemoglobin 31.4, Mean Corpuscular Hemoglobin Concent 32.3, Mean Corpuscular Volume 97, Mean Platelet Volume 9.5, Monocytes # (Auto) 1.2, Monocytes (%) (Auto ) 9, Neutrophils # (Auto) 10.9, Neutrophils (%) (Auto) 80H, Phosphorus Level 3.6 , Platelet Count 233, Potassium Level 4.0, Red Blood Count 4.17L, Red Cell Distribution Width 12.4, Sodium Level 137, White Blood Count 13.56H 07/28/16 05:10: Albumin 3.2L, Anion Gap 15.6H, Basophils # (Auto) , Basophils (%) (Auto) , Blood Urea Nitrogen 24H, Calcium Level 9.3, Carbon Dioxide Level 35H, Chloride Level 93L, Creatinine 0.96, Eosinophils # (Auto) , Eosinophils (%) (Auto) , Estimat Glomerular Filtration Rate 93.7, Estimated GFR (Non- 77.4, Glucose Level 108#, Hematocrit 42.50, Hemoglobin 13.8, Lymphocytes # (Auto ) , Lymphocytes (%) (Auto) , Mean Corpuscular Hemoglobin 31.2, Mean Corpuscular Hemoglobin Concent 32.5, Mean Corpuscular Volume 96, Mean Platelet Volume 9.8H, Monocytes # (Auto) , Monocytes (%) (Auto) , Neutrophils # (Auto) , Neutrophils ( %) (Auto) , Phosphorus Level 3.8, Platelet Count 252, Potassium Level 4.3, Red Blood Count 4.43L, Red Cell Distribution Width 12.6, Sodium Level 139, White Blood Count 24.09H, Absolute Band Neutrophils 0.7, Band Neutrophils % 3, Basophils # (Manual) 0.0, Basophils % (Manual) 0, Blood Morphology Comment Normal, C-Reactive Protein 16.10H, Differential Total Cells Counted 100, Eosinophils # 0.0, Eosinophils % (Manual) 0, Lymphocytes # 1.7, Lymphocytes % ( Manual) 7L, Metamyelocytes % 0, Monocytes # 0.0, Monocytes % (Manual) 0L, Neutrophils # 21.7, Segmented Neutrophils % 90H 07/29/16 05:15: Albumin 3.5, Anion Gap 18.6H, Basophils # (Auto) , Basophils (%) (Auto) , Blood Urea Nitrogen 25H, Calcium Level 9.4, Carbon Dioxide Level 29, Chloride Level 93L, Creatinine 0.84, Eosinophils # (Auto) , Eosinophils (%) (Auto) , Estimat Glomerular Filtration Rate 109.3, Estimated GFR (Non- 90.3, Glucose Level 95, Hematocrit 43.00, Hemoglobin 14.2, Lymphocytes # (Auto) , Lymphocytes (%) (Auto) , Mean Corpuscular Hemoglobin 31.4, Mean Corpuscular Hemoglobin Concent 33.0, Mean Corpuscular Volume 95, Mean Platelet Volume 10.1H , Monocytes # (Auto) , Monocytes (%) (Auto) , Neutrophils # (Auto) , Neutrophils (%) (Auto) , Phosphorus Level 3.6, Platelet Count 283, Potassium Level 4.0, Red Blood Count 4.52, Red Cell Distribution Width 12.6, Sodium Level 136, White Blood Count 22.77H, Absolute Band Neutrophils 0.9, Band Neutrophils % 4, Basophils # (Manual) 0.0, Basophils % (Manual) 0, Blood Morphology Comment Normal, Differential Total Cells Counted 100, Eosinophils # 0.0, Eosinophils % ( Manual) 0, Lymphocytes # 1.4, Lymphocytes % (Manual) 6L, Metamyelocytes % 0, Monocytes # 1.3, Monocytes % (Manual) 6, Neutrophils # 19.1, Segmented Neutrophils % 84H MICRO 07/28 Blood culture negative to date 07/28 Sputum culture PENDING 07/26 urine culture negative to date 07/25 urine culture negative to date IMAGING 07/28/16 CHEST PA/LAT (2 VIEW)* EXAMINATION: CHEST (PA AND LATERAL) CLINICAL INDICATION: 71-year-old male, leukocytosis. History of COPD. COMPARISON: July. FINDINGS: Stable overall appearance of the cardiomediastinal silhouette. There is no identified pneumothorax. There is increasing airspace consolidation in the right lower lobe. There is elevation of the right hemidiaphragm. There is no identified sizable pleural effusion. There are disc degenerative changes of the thoracic spine. IMPRESSION: 1. Increasing right lower lobe airspace consolidation which may relate to infiltrate such as aspiration or pneumonia. There also may be components of atelectasis. Additional alveolar consolidative processes would also be considered in the differential diagnosis. Correlation clinically and possible left resolution recommended. 07/27/16 US RENAL BILATERAL INDICATION: Urinary retention. COMPARISON STUDY: CT of the lumbar spine from 2 days ago. FINDINGS: The bilateral renal ultrasound demonstrates both kidneys to be of normal size, shape, texture, and echogenicity. No calculus or hydronephrosis is present. The right kidney measures 9 x 5 x 4 cm and the left kidney measures 9.4 x 4.4 x 3.7 cm. IMPRESSION: Normal renal ultrasound. 07/25/16 ECHO: PENDING. Prelim: LVEF 50-55%. 07/25/16 CT LUMBAR SPINE WO PROCEDURE: CT lumbar spine without contrast. TECHNIQUE: Multiple contiguous axial images were obtained through the lumbar spine without the use of intravenous contrast. Sagittal and coronal reformations were then performed. INDICATION: [id number] low back pain with leg weakness. FINDINGS: There is left convexity degenerative lumbar rotoscoliosis. The vertebral body heights are well maintained. There is multilevel degenerative disc disease with a vacuum disc at essentially every level of the lumbar spine. There is lower lumbar hypertrophic degenerative facet disease. At L3-L4, there appears to be broad-based annular bulging with thickening of the ligamentum flavum. There is at least [id number] central spinal stenosis with encroachment upon the lateral recesses bilaterally as well as right neuroforaminal encroachment. Similar findings are seen at L4- L5 and to a lesser degree at L5-S1. There is ectasia of the infrarenal abdominal aorta up to 2.7 cm. IMPRESSION: Moderately severe diffuse lumbar spondylosis and multilevel degenerative disc disease with a left convexity degenerative lumbar rotoscoliosis. There is [id number] spinal stenosis at L3-L4 and L4-L5. This could be better evaluated with MRI. 07/25/16 CHEST 1 VIEW, AP/PA ONLY* INDICATION: Shortness of breath EXAMINATION: Portable chest at 10:48 AM Heart size and pulmonary vascularity are normal. Lungs are clear. There are no effusions or pneumothoraces. IMPRESSION: Negative chest. ASSESSMENT Aurelio Herrera is a 71 year old male admitted from ED 07/25 after 3 falls at home attributed to leg weakness and tripping. He has acute on chronic lower back pain and has been dealing with worsening BLE edema. He has had urinary retention and swan was placed in office by PCP 2 days prior to admit. He has other chronic problems including stage III COPD. On 07/28 he had worsening leukocytosis and although he had no increased cough or dyspnea, treatment for pneumonia was started because of adverse change on follow-up chest x-ray. PLAN * Community Acquired Pneumonia: Was not noted to be present on admit. Blood culture negative to date. Sputum pending. Acapella, guaifenesin, ceftriaxone, azithromycin. * Leukocytosis, Elevated CRP: Attributed to pneumonia. Had additional workup showing adverse CXR changes. Expected to improve with treatment of pneumonia. * BLE Edema: Uncertain cause. Could be due to fluid retention caused by lung disease. Had not had cardiac workup prior to this admit. Renal function appears preserved and there does not appear to be significant proteinuria. Echo pending but EF only mildly low at 50-55%. NT-pro-BNP only mildly elevated. JODY hose. Furosemide. * Falls at home: Low vitamin D noted. PT/OT eval and treat. * Acute on Chronic Lower Back Pain, Lumbar Spinal Stenosis (L3-4, L4-5): Red flags: age, left leg weakness. Unable to tolerate MRI that had been ordered outpatient prior to admit. CT L-spine results as noted. PCP plans to refer to Dr. Paniagua in [place]. Oxycodone/acetaminophen, lidoderm for pain. * Constipation: Improved. Bowel regimen * Vitamin D Deficiency: Started ergocalciferol 50,000 IU weekly x 6 weeks. Follow with 2000 units PO daily. Recheck in 6 weeks. * Anxiety: Improved. Somewhat debilitating for him on admit. Offered lorazepam which was helpful. Monitor closely. At discharge to care home, may have to keep low-dose PRN available to help him with stress of changing environment. Would avoid continuing this long-term. * F/E/N: 2 gram sodium diet. Peripheral IV. I&O, daily weight. * Prophylaxis: Enoxaparin * Code Status: Full * Dispo: Met inpatient criteria 07/26. Expect 3 day stay then will need skilled care. Potential discharge in 07/31. CHRONIC ISSUES * Anxiety: Citalopram. Permit lorazepam, though monitor use closely. * Depression: Citalopram * Chronic Pack Pain: Oxycodone/acetaminophen * COPD Stage III: Albuterol PRN. Sub advair for symbicort. Sub tiotropium for Stiolto. SONIA CERVANTES MD July 29, 2016 12:01
[2016-07-29] MEDS: cefTRIAXone SODIUM 1,000 MG in SODIUM CHLORIDE 50 ML IV SCH (14:05)
--- NOTE | 2016-07-29 15:00 | NUR ---
Pt transferred from bed to chair with minimal assistance.
[2016-07-29 15:08] VITALS: BP 105/67
[2016-07-29] MEDS: AZITHROMYCIN VIAL 500 MG in SODIUM CHLORIDE 250 ML IV SCH (15:11)
--- NOTE | 2016-07-29 17:30 | NUR ---
Pt helped back to bed with minimal assistance of one. Breathing labored after transfer. Pt recovers after several minutes.
--- NOTE | 2016-07-29 17:38 | NUR ---
Pt coughs while taking potassium pill.
--- NOTE | 2016-07-29 20:00 | NUR ---
Pt found lying in bed on 3 l/min NC, SPO2 90%, HR 80, RR 18 and non labored with clear and diminished BS before and after 2p Advair 115/21 via Spacer. Acapella x2 causes a moderate NPC. Pt did not due more attempts on acapella due to it making him short of breath. He said he would do it on his own.
[2016-07-29] MEDS: PATCH REMOVAL TOP SCH (21:00)
[2016-07-30 00:02] VITALS: BP 118/73
[2016-07-30] MEDS: oxycODONE/ACETAMINOPHEN 10MG-325 MG (PERCOCET-10) TABLET PO PRN ×3 (03:07→17:41)
[2016-07-30 06:11] LABS: MEAN CORPUSCULAR HGB CONC 32.9 g/dL (31.0-37.0); MEAN CORPUSCULAR VOLUME 95 FL (80-100); MEAN PLATELET VOLUME 9.6 FL (6.0-9.5); PLATELET COUNT 308 10^3uL (150-450); WHITE BLOOD COUNT 17.29 10^3uL (4.0-11.0)
[2016-07-30 06:14] LABS: MEAN CORPUSCULAR HEMOGLOBIN 31.4 PG (26.0-34.0)
[2016-07-30 06:22] LABS: BAND NEUTROPHILS % 0 % (0-6); EOSINOPHILS % 0 % (0-4); LYMPHOCYTES # 2.1 #; MONOCYTES # 0.5 #; MONOCYTES % 3 % (3-11); RBC MORPH NORMAL (NORMAL); SEGMENTED NEUTROPHILS % 85 % (51-67); TOTAL CELLS COUNTED 100
--- NOTE | 2016-07-30 06:38 | NUR ---
Patient rests in bed throughout night without needs. Up to weight chair with 1 assist, recovers faster this AM than he did yesterday AM. No needs at this time.
[2016-07-30 06:42] LABS: ALBUMIN 3.4 g/dL (3.4-5.0); ANION GAP 14.1 MEQ/L (3-15)
[2016-07-30] MEDS: FUROSEMIDE 100 MG/10 ML (LASIX) VIAL IV SCH ×2 (08:16→15:14)
[2016-07-30] MEDS: NS FLUSH 3 ML DAILY IV SCH (08:16)
[2016-07-30] MEDS: CITALOPRAM 40 MG (CELEXA) TABLET PO SCH (08:18)
[2016-07-30] MEDS: LORazepam 1 MG (ATIVAN) TABLET PO PRN (08:18)
[2016-07-30] MEDS: DOCUSATE SODIUM 100 MG (COLACE) CAP PO SCH ×2 (08:18→21:08)
[2016-07-30] MEDS: POLYETHYLENE GLYCOL 17 GM (MIRALAX) PACKET PO SCH (08:18)
[2016-07-30] MEDS: ENOXAPARIN 40 MG/0.4 ML (LOVENOX) SYR SC SCH (08:18)
[2016-07-30] MEDS: guaiFENesin ER 600 MG (MUCINEX) TAB PO SCH ×2 (08:19→21:08)
[2016-07-30] MEDS: POTASSIUM CHLORIDE ER 20 MEQ TABLET PO SCH ×2 (08:19→17:41)
[2016-07-30] MEDS: LIDOCAINE (LIDODERM) 5% PATCH TOP SCH (08:20)
[2016-07-30] MEDS: TIOTROPIUM 18 MCG/CAP (SPIRIVA) INHALER (5 CAPS) IH SCH (08:34)
[2016-07-30] MEDS: FLUTICASONE/SALMETEROL HFA 115/21 MCG (ADVAIR) COMMON CANNISTER INH SCH ×2 (08:35→19:53)
--- NOTE | 2016-07-30 08:40 | NUR ---
SpO2 88% on 3Lpm Cannula. Increased to 4Lpm and will recheck.
[2016-07-30] MEDS: TAMSULOSIN 0.4 MG (FLOMAX) CAP PO SCH (09:52)
[2016-07-30 09:56] VITALS: BP 118/72
--- NOTE | 2016-07-30 10:04 | PT Daily Note Inpatient (E) ---
PT Daily Treatment Service Date/Time 07/30/16, 09:57 Medical Diagnosis: (1) Frequent falls ICD Code: R29.6 (2) Bilateral lower extremity edema ICD Code: R60.0 (3) Chronic back pain ICD Code: 724.5 (4) Strain of back muscle ICD Code: 847.9 Physical Therapy: (1) Chronic back pain ICD Code: 724.5 (2) Frequent falls ICD Code: R29.6 Precaution/Isolation: Standard Precautions Resuscitation Status: Full Code Fall Level: High Risk 51 or greater Barriers Limiting Function: Activity Tolerance Subjective The patient reports fatigue from taking pills and breakfast. He rates pain as a 5-6/10. Patient on 3L02 at start of session 89% 02, HR 87 bpm. Patient was agreeable to standing to assess his tolerance. PT had to increased 02 to 4-5L 02 with activity. Patient has mild burning noted in RLE. Oxygen Delivery: Nasal cannula O2 liters/minute: 3L Transfers Supine-Sit: Contact Guard Assist Sit-Stand from bed: Contact Guard Assist Stand-Sit: Contact Guard Assist Gait Ambulation: Minimal Assistance Distance Walked: 5 steps with FWW. Assistive Device: FWW Gait Assist: Min Assist/Contact Guard Gait Description: Wide Based Gait, Decreased [place], Slow Patient short of air and had mm fatigue reported in lower extremities as patient tolerates. Education/Plan Education Education Needs: Breathing Technique (Patient and nurse were educated on the patient's 02 desaturation to 83-85% on 4-5L 02 with activity, verbal cues for pursed lip breathing to improve. At end of session with nurse assessing vitals after patienton 4L 02 with 88%, HR 93 bpm. ) Assessment Patient's 02 saturation remained in upper 80's despite increased 02 saturation. He fatigues quickly and requires cues for proper breathing strategy. Decreased assistance required for supine to sit this date. Plan Patient will be seen: Daily Saturday-Saturday Coding Time In: 925 Time Out: 952 Total Minutes: 27 Charges: 27171 Ther Activity TEA JO PT July 30, 2016 10:04
[2016-07-30] MEDS ORDERED: MEROPENEM 500 MG IV SCH (11:05)
--- NOTE | 2016-07-30 11:17 | Progress Note-A/P (E) ---
Progress Note Subjective Subjective progressive symptom complex of cough and malaise and pneumonia right lung. Objective VS Vital Signs Date Time Temp Pulse Resp B/P Pulse Ox O2 Delivery O2 Flow Rate FiO2 07/30/16 09:56 96.9 83 22 118/72 88 Nasal cannula 07/28/16 15:35 3L.00 Current Medications Current Medications Guaifenesin 1200 mg 1,200 mg BID PO Last administered on 07/30/16 08:19; Admin Dose 1,200 MG; Start 07/28/16 at 21:00 Ceftriaxone Sodium/Sodium Chloride 50 ml @ 150 mls/hr Q24H IV Last administered on 07/29/16 14:05; Admin Dose 150 MLS/HR; Start 07/28/16 at 13:10 ; Stop 08/01/16 at 13:29 General Awake, alert, oriented to person, place, and situation. NAD at present pt short of breath resting and desats with minimal activity HEENT EOMI, PERRL CV RRR, S1 S2 audible Lungs desaturating with minimal activity and chest x-ray worsening, rales and wheezing bilat. Abdomen Soft non distended, no tenderness to palpation, no masses Extremities No edema Integumentary dry with tenting bilat extremities. Neuro No focal motor neuro deficits Musculoskeletal weak and poor ability to weight bear. Labs, Most Recent- Laboratory Results Past 24 Hrs 07/30/16 05:40: Absolute Band Neutrophils 0.0, Albumin 3.4, Anion Gap 14.1, Band Neutrophils % 0 , Basophils # (Auto) , Basophils # (Manual) 0.0, Basophils % (Manual) 0, Basophils (%) (Auto) , Blood Morphology Comment Normal, Blood Urea Nitrogen 23, C-Reactive Protein 19.20, Calcium Level 9.2, Carbon Dioxide Level 35, Chloride Level 90, Creatinine 0.88, Differential Total Cells Counted 100, Eosinophils # 0.0, Eosinophils # (Auto) , Eosinophils % (Manual) 0, Eosinophils (%) (Auto) , Estimat Glomerular Filtration Rate 103.6, Estimated GFR (Non- 85.6, Glucose Level 100, Hematocrit 39.50, Hemoglobin 13.0, Lymphocytes # 2.1, Lymphocytes # (Auto) , Lymphocytes % (Manual) 12, Lymphocytes (%) (Auto) , Mean Corpuscular Hemoglobin 31.4, Mean Corpuscular Hemoglobin Concent 32.9, Mean Corpuscular Volume 95, Mean Platelet Volume 9.6, Metamyelocytes % 0, Monocytes # 0.5, Monocytes # (Auto) , Monocytes % (Manual) 3, Monocytes (%) (Auto) , Neutrophils # 14.7, Neutrophils # (Auto) , Neutrophils (%) (Auto) , Phosphorus Level 4.3, Platelet Count 308, Potassium Level 3.6, Red Blood Count 4.14, Red Cell Distribution Width 12.4, Segmented Neutrophils % 85, Sodium Level 136, White Blood Count 17.29 24 Hr Result Diagram CBC BMP Last 24 Hrs 07/30/16 05:40 Micro Results pending Impressions acute cap and not responding to current rx antibiotics sor azt stopped and pcn begun at high dose. Assessment ASSESSMENT Aurelio Herrera is a 71 year old male admitted from ED 07/25 after 3 falls at home attributed to leg weakness and tripping. He has acute on chronic lower back pain and has been dealing with worsening BLE edema. He has had urinary retention and swan was placed in office by PCP 2 days prior to admit. He has other chronic problems including stage III COPD. On 07/28 he had worsening leukocytosis and although he had no increased cough or dyspnea, treatment for pneumonia was started because of adverse change on follow-up chest x-ray. PLAN * Community Acquired Pneumonia: Was not noted to be present on admit. Blood culture negative to date. Sputum pending. Acapella, guaifenesin, ceftriaxone, Add meropenum as wbc rising and chest x-ray worsening at this time. Condition worsening at this time. * Leukocytosis, Elevated CRP: Attributed to pneumonia. Had additional workup showing adverse CXR changes. Expected to improve with treatment of pneumonia. * BLE Edema: Uncertain cause. Could be due to fluid retention caused by lung disease. Had not had cardiac workup prior to this admit. Renal function appears preserved and there does not appear to be significant proteinuria. Echo pending but EF only mildly low at 50-55%. NT-pro-BNP only mildly elevated. JODY lopez. Furosemide. * Falls at home: Low vitamin D noted. PT/OT eval and treat. * Acute on Chronic Lower Back Pain, Lumbar Spinal Stenosis (L3-4, L4-5): Red flags: age, left leg weakness. Unable to tolerate MRI that had been ordered outpatient prior to admit. CT L-spine results as noted. PCP plans to refer to Dr. Paniagua in [place]. Oxycodone/acetaminophen, lidoderm for pain. * Constipation: Improved. Bowel regimen * Vitamin D Deficiency: Started ergocalciferol 50,000 IU weekly x 6 weeks. Follow with 2000 units PO daily. Recheck in 6 weeks. * Anxiety: Improved. Somewhat debilitating for him on admit. Offered lorazepam which was helpful. Monitor closely. At discharge to senior care, may have to keep low-dose PRN available to help him with stress of changing environment. Would avoid continuing this long-term. * F/E/N: 2 gram sodium diet. Peripheral IV. I&O, daily weight. * Prophylaxis: Enoxaparin * Code Status: Full * Dispo: Met inpatient criteria 07/26. Expect 3 day stay then will need skilled care. Potential discharge in 07/31. CHRONIC ISSUES * Anxiety: Citalopram. Permit lorazepam, though monitor use closely. * Depression: Citalopram * Chronic Pack Pain: Oxycodone/acetaminophen * COPD Stage III: Albuterol PRN. Sub advair for symbicort. Sub tiotropium for Stiolto. Plan see above . to leave catheter in place for a few more days per Urology. KERRI MILES DO July 30, 2016 11:17
--- NOTE | 2016-07-30 12:23 | NUR ---
Information faxed to [facility] to review for acceptance for skilled care.
[2016-07-30] MEDS: MEROPENEM 1 GM in SODIUM CHLORIDE 100 ML IV SCH ×2 (12:46→21:08)
[2016-07-30] MEDS: NS FLUSH 10 ML PRN IV ×3 (12:53→21:10)
[2016-07-30 12:58] LABS: ABG OXYGEN SATURATION 80 % (95-98); ABG PCO2 41 mmHg (35-45); ABG PO2 41 mmHg (80-105)
[2016-07-30 12:59] LABS: ARTERIAL BLOOD GAS DELIVERY Room Air
[2016-07-30] MEDS ORDERED: TIOTROPIUM 18 MCG/CAP (SPIRIVA) INHALER (5 CAPS) IH ONE (13:07)
--- NOTE | 2016-07-30 13:12 | CONSULTATION REPORT ---
ATTENDING PHYSICIAN: Adin Ace MD CONSULTING PHYSICIAN: Bernard Villarreal MD REPORT Date of Report: 07/30/2016 FINDINGS: This patient noted that he had some difficulty voiding, but that it was acceptable. As the patient developed increasing back pain, he began to take more Percocet and both his bowel and bladder function diminished. He was hardly able to pass anything, either per rectum or per urethra spontaneously. The patient also had back pain, leg pain, leg weakness and increasing edema of his legs. The patient was admitted to the hospital because of these problems. He has been found to have pneumonia, but has a rising white count and CRP. A Staples catheter was placed. The patient had at least 2 liters of urine immediately after they easily placed the catheter. The patient has diuresed and his legs have returned to normal, but he still has difficulty with ambulation. The patient was suspected of having BPH, and of course, urinary retention. The patient did not have a strong urge to void prior to being catheterized and notes that his frequency of urination has diminished as well. Since being in the hospital, the patient has undergone a CT, which showed some spinal stenosis of moderate to severe amount. MRI has been recommended. The patient's creatinine has declined from 1.1 to below 1. It is noted that the patient has little muscle mass. The daughter was also present for the interview. REVIEW OF SYSTEMS: Review of systems is primarily positive for memory loss, voiding dysfunction, bowel dysfunction, and decreased mobility, as well as this pain. PHYSICAL EXAMINATION GENERAL: The patient is relatively ill, thin appearing man who is unable to ambulate well. GENITOURINARY: The Staples catheter is in place and it drains clear urine. DIAGNOSIS: Likely hypotonic bladder, but whether this is due to a myogenic or neurogenic cause, it is not known. RECOMMENDATIONS: Options for management had been discussed. I think the patient should continue with Staples catheter during a period of back workup and strengthening and return for consideration of intermittent catheterization and/or urodynamic testing prior to definitive management.
--- NOTE | 2016-07-30 14:15 | NUR ---
20 gauge IV started in R. Wrist
--- NOTE | 2016-07-30 15:31 | OT Daily Note Inpatient (E) ---
OT Daily Treatment Service Date/Time 07/30/16, 15:25 Primary Diagnosis: (1) Frequent falls ICD Code: R29.6 (2) Bilateral lower extremity edema ICD Code: R60.0 (3) Chronic back pain ICD Code: 724.5 (4) Strain of back muscle ICD Code: 847.9 Treatment Diagnosis: (1) Weakness ICD Code: R53.1 Onset Date: 07/25/16 Start of Care Date: July 26, 2016 Precaution/Isolation: Standard Precautions Fall Level: High Risk 51 or greater Resuscitation Status: Full Code Pt asleep upon approach. Pt states where am I? reports no pain. on 4 L 02 Pain Level: 0 Oxygen Needed: Nasal cannula O2 liters/minute: 4L Current Function Assessment Cognition Attention: Intact Memory: Intact Safety/Judgement: Intact Visual/Perceptual Skills Glassess: Yes Hearing: Impaired Hand Dominance Hand Dominance: Right Treatments Strengthening Exercise Upper Extremity Strength Exerc : Exercise Type: AROM Repetitions: 10 X 1 Amount of Resistance: Yellow Comment Pt engaged in B Ue PRE with yellow tband to increase strength and educated in correct breathing patterns for increase 02 stats. 02 94% HR 51 before exercises. 3 exercises performed with Max v/c for breathing pattern 90% HR 105. 3 more exercises were performed 02 88 % HR 107. Pt took 3 minutes to recover to 93%. Pt was cooperative and pleasant but requires frequent rest breaks and 02 stats drop with activity.. Education/Assessment Rehabilitation Potential: Good POC Plan of Care Problems Identified: Activity Tolerance, ADLs, Balance, Lt UE Coordination, Lt UE Strength, Rt UE Coordination, Rt UE Strength, Safety Awareness Plan: Evaluation-OT, ADL/Self Care Management, Therapy Exercises, Therapy Activities, Pt/Family/Staff Education, Manual Frequency of OT: Five times weekly Duration of OT: Other (4 days ) Therapy to Include: ADL training, Balance with ADLs, Edema control, Manual therapy, Pt/family education, Therapeutic activities, UE strengthing Discharge Recommendations: TCU/Skilled NH Pt. Aware of Dx and Prognosis: Yes Pt. Aware of Risk & Benefit: Yes Goals: Discussed with patient, Discussed with family Short Term Goals STG Time Frame: 2 Days Will Dress Upper Extremity: With Min Assistance STG #1 Pt will participate in 15 min of ther-ex with use of energy conservation techniques as needed. Crime Scene Investigator Goals LTG Time Frame: 4 Days Will Dress Upper Extremity: With Setup/SBA Will Dress Lower Extremity: With Min Assistance Will Bathe Self: With Min Assistance Will do Toilet Transfers: With Min Assistance Will do Toilieting: With Min Assistance LTG # 1 Pt will demonstrate ability to independently apply deep breathing techniques during daily activities and exercises to ease shortness of breath and improve performance. CPT/G Codes Time In: 1430 Time Out: 1457 Total Minutes: 27 CPT Codes: 50251 Exercise Ther Dee Urias July 30, 2016 15:31
[2016-07-30 16:41] VITALS: BP 125/71
--- NOTE | 2016-07-30 17:47 | NUR ---
RAC IV removed at this time
--- NOTE | 2016-07-30 18:11 | NUR ---
Shift notes The patient works with PT this AM and Dr. Villarreal is in to visist regarding bladder and swan catheter care. Hygiene is tended to with total assist as the patient is up to the shower chair. He cooperates well with prompts and encouragement. ABG drawn due decreased SPO2. Currently O2 is 92 on 4LNC respirations are even and unlabored. Patient is in recliner for lunch and IV abx this afternoon. With SBA and walker he is able to transfer to the bed afterwards. He c/o back pain on two occasions this shift. PO oxy/acetam is given. Patient is awake for supper and states "Im just so tired." Will continue to monitor
--- NOTE | 2016-07-30 18:56 | NUR ---
Report given to Aimee PERRY and care relinquished
--- NOTE | 2016-07-30 19:55 | NUR ---
Pt found lying in bed on 4 l/min NC, SPO2 92%, HR 86, RR 18 with clear and diminished BS before and after 2p Advair 115/21 via Spacer. Mouth rinsed post tx.
[2016-07-30] MEDS ORDERED: SODIUM CHLORIDE 250 ML ONE (20:57)
[2016-07-30] MEDS: PATCH REMOVAL TOP SCH (21:00)
[2016-07-31 00:08] VITALS: BP 113/63
[2016-07-31] MEDS: oxycODONE/ACETAMINOPHEN 10MG-325 MG (PERCOCET-10) TABLET PO PRN ×3 (03:20→20:09)
[2016-07-31] MEDS: LORazepam 1 MG (ATIVAN) TABLET PO PRN (05:19)
[2016-07-31] MEDS: MEROPENEM 1 GM in SODIUM CHLORIDE 100 ML IV SCH ×3 (05:47→22:36)
--- NOTE | 2016-07-31 05:48 | NUR ---
Right wrist SL does not flush. IV discontinued; catheter tip intact. 18g initiated to LFA by this nurse. First attempt successful; pt tolerates well.
[2016-07-31 06:01] LABS: MEAN CORPUSCULAR HGB CONC 32.6 g/dL (31.0-37.0); MEAN CORPUSCULAR VOLUME 95 FL (80-100); MEAN PLATELET VOLUME 9.9 FL (6.0-9.5); PLATELET COUNT 410 10^3uL (150-450); WHITE BLOOD COUNT 18.79 10^3uL (4.0-11.0)
--- NOTE | 2016-07-31 06:04 | NUR ---
Pt rests in long intervals this shift. Able to stand and pivot to w/c; goes to radiology for CXR. PRN percocet provided for back pain.
[2016-07-31 06:13] LABS: BAND NEUTROPHILS % 0 % (0-6); EOSINOPHILS % 3 % (0-4); LYMPHOCYTES # 3.7 #; MONOCYTES # 0.4 #; MONOCYTES % 2 % (3-11); RBC MORPH NORMAL (NORMAL); SEGMENTED NEUTROPHILS % 75 % (51-67); TOTAL CELLS COUNTED 100
[2016-07-31 06:23] LABS: ANION GAP 15.3 MEQ/L (3-15)
[2016-07-31] MEDS: TIOTROPIUM 18 MCG/CAP (SPIRIVA) INHALER (5 CAPS) IH SCH (07:49)
[2016-07-31] MEDS: FLUTICASONE/SALMETEROL HFA 115/21 MCG (ADVAIR) COMMON CANNISTER INH SCH ×2 (07:49→19:41)
[2016-07-31 08:00] VITALS: BP 110/62
--- NOTE | 2016-07-31 08:23 | NUR ---
SpO2 96% on 4Lpm via nasal cannula. Decreased to 3Lpm, follow-up SpO2 90%. Left on 3LPM. BS Clear
--- NOTE | 2016-07-31 08:30 | NUR ---
Pt resting in bed, using laptop. Skin warm, dry, intact. Resprs nonlabored, even on 3L NC. Damian bears in bed with pt. SL intact. Staples patent to DD; small amount of dark abhay urine noted. Pt denies needs.
--- NOTE | 2016-07-31 08:34 | NUR ---
Nutrition Follow Up: Pt.'s intake remains poor, eating 0-50% the past 4 days, with average intake of <20%. He remains SOA with exertion and fatigues easily, though he is working with therapy. Pt. is filling out his menu with a variety of food, but he is inadequate in protein. Weight today: 152.6#/69.4 kg--he has diuresed 11.5# since admission 6 days ago Labs: glucose 115, BUN 24, creatinine 0.95 1. In addition to 2 g. sodium diet, pt. needs emphasis on protein with goal a minimum of 75 g./day as previously calculated. To help meet this, will send Ensure with meals TID. Will also supplement with 1 pkt. Benecalorie per meal as able, when there are foods to mix it in. Pt. requested mashed potatoes with lunch today, so we can mix it in there. (For reference, 1 pkt. Benecalorie provides 330 kcals and 7 g. protein, and each can of Ensure Plus provides 350 kcals and 13 g. protein.) Will follow closely.
--- NOTE | 2016-07-31 08:34 | Diagnostic Imaging Report ---
INDICATION: Dyspnea, pneumonia. DISCUSSION: Two views of the chest were obtained, comparison 07/28/2016. Small right pleural effusion is noted. Consolidation within the right lung base is not significantly changed given differences in technique. Underlying COPD is stable. Mild atelectasis noted within the medial left lung base. Normal heart size. No acute osseous abnormality. IMPRESSION: 1. Small right pleural effusion with right lung base consolidation, not significantly changed. Dictated by: Dictated on workstation # [id number]
[2016-07-31] MEDS: NS FLUSH 3 ML DAILY IV SCH (09:00)
[2016-07-31] MEDS: CITALOPRAM 40 MG (CELEXA) TABLET PO SCH (09:09)
[2016-07-31] MEDS: POTASSIUM CHLORIDE ER 20 MEQ TABLET PO SCH ×2 (09:09→17:59)
[2016-07-31] MEDS: FUROSEMIDE 100 MG/10 ML (LASIX) VIAL IV SCH ×2 (09:09→13:33)
[2016-07-31] MEDS: DOCUSATE SODIUM 100 MG (COLACE) CAP PO SCH ×2 (09:09→20:09)
[2016-07-31] MEDS: guaiFENesin ER 600 MG (MUCINEX) TAB PO SCH ×2 (09:09→20:09)
[2016-07-31] MEDS: NS FLUSH 10 ML PRN IV ×3 (09:11→16:14)
[2016-07-31] MEDS: POLYETHYLENE GLYCOL 17 GM (MIRALAX) PACKET PO SCH (09:11)
[2016-07-31] MEDS: ENOXAPARIN 40 MG/0.4 ML (LOVENOX) SYR SC SCH (09:13)
[2016-07-31] MEDS: LIDOCAINE (LIDODERM) 5% PATCH TOP SCH (09:19)
[2016-07-31] MEDS: TAMSULOSIN 0.4 MG (FLOMAX) CAP PO SCH (10:38)
--- NOTE | 2016-07-31 11:23 | Progress Note-A/P (E) ---
Progress Note Subjective Subjective resting acute cough resolved but blood counts are lagging rx. Objective VS Vital Signs Date Time Temp Pulse Resp B/P Pulse Ox O2 Delivery O2 Flow Rate FiO2 07/31/16 08:00 97.3 78 22 110/62 93 Nasal cannula 07/28/16 15:35 3L.00 I&O Laboratory Results Past 24 Hrs 07/30/16 12:50: Du Test Pos, Arterial Blood Base Excess 9.0, Arterial Blood HCO3 32.0, Arterial Blood Oxygen Saturation 80, Arterial Blood Partial Pressure CO2 41, Arterial Blood Partial Pressure O2 41, Arterial Blood Total CO2 33.0, Arterial Blood pH 7.50, Blood Gas Puncture Site Right radial 07/31/16 05:30: Absolute Band Neutrophils 0.0, Anion Gap 15.3, BUN/Creatinine Ratio 25, Band Neutrophils % 0, Basophils # (Auto) , Basophils # (Manual) 0.0, Basophils % ( Manual) 0, Basophils (%) (Auto) , Blood Morphology Comment Normal, Blood Urea Nitrogen 24, Calcium Level 9.7, Carbon Dioxide Level 35, Chloride Level 90, Creatinine 0.95, Differential Total Cells Counted 100, Eosinophils # 0.5, Eosinophils # (Auto) , Eosinophils % (Manual) 3, Eosinophils (%) (Auto) , Estimat Glomerular Filtration Rate 94.8, Estimated GFR (Non- 78.4, Glucose Level 115, Hematocrit 44.20, Hemoglobin 14.4, Lymphocytes # 3.7, Lymphocytes # (Auto) , Lymphocytes % (Manual) 20, Lymphocytes (%) (Auto) , Mean Corpuscular Hemoglobin 31.0, Mean Corpuscular Hemoglobin Concent 32.6, Mean Corpuscular Volume 95, Mean Platelet Volume 9.9, Metamyelocytes % 0, Monocytes # 0.4, Monocytes # (Auto) , Monocytes % (Manual) 2, Monocytes (%) (Auto) , Neutrophils # 14.1, Neutrophils # (Auto) , Neutrophils (%) (Auto) , Platelet Count 410, Potassium Level 4.0, Red Blood Count 4.64, Red Cell Distribution Width 12.5, Segmented Neutrophils % 75, Sodium Level 137, White Blood Count 18.79 Current Medications Current Medications Meropenem/Sodium Chloride 100 ml @ 200 mls/hr Q8HR IV Last administered on 07/31t 05:47; Admin Dose 200 MLS/HR; Start 07/30/16 at 12:00 Current Medications Meropenem/Sodium Chloride 100 ml @ 200 mls/hr Q8HR IV Last administered on 07/31t 05:47; Admin Dose 200 MLS/HR; Start 07/30/16 at 12:00 General Awake, alert, oriented to person, place, and situation. NAD at present pt short of breath resting and desats with minimal activity HEENT EOMI, PERRL CV RRR, S1 S2 audible Lungs desaturating with minimal activity and chest x-ray worsening, rales and wheezing bilat. Abdomen Soft non distended, no tenderness to palpation, no masses Extremities No edema Integumentary dry with tenting bilat extremities. Neuro No focal motor neuro deficits Musculoskeletal weak and poor ability to weight bear. Labs, Most Recent- Laboratory Results Past 24 Hrs 07/30/16 12:50: Du Test Pos, Arterial Blood Base Excess 9.0, Arterial Blood HCO3 32.0, Arterial Blood Oxygen Saturation 80, Arterial Blood Partial Pressure CO2 41, Arterial Blood Partial Pressure O2 41, Arterial Blood Total CO2 33.0, Arterial Blood pH 7.50, Blood Gas Puncture Site Right radial 07/31/16 05:30: Absolute Band Neutrophils 0.0, Anion Gap 15.3, BUN/Creatinine Ratio 25, Band Neutrophils % 0, Basophils # (Auto) , Basophils # (Manual) 0.0, Basophils % ( Manual) 0, Basophils (%) (Auto) , Blood Morphology Comment Normal, Blood Urea Nitrogen 24, Calcium Level 9.7, Carbon Dioxide Level 35, Chloride Level 90, Creatinine 0.95, Differential Total Cells Counted 100, Eosinophils # 0.5, Eosinophils # (Auto) , Eosinophils % (Manual) 3, Eosinophils (%) (Auto) , Estimat Glomerular Filtration Rate 94.8, Estimated GFR (Non- 78.4, Glucose Level 115, Hematocrit 44.20, Hemoglobin 14.4, Lymphocytes # 3.7, Lymphocytes # (Auto) , Lymphocytes % (Manual) 20, Lymphocytes (%) (Auto) , Mean Corpuscular Hemoglobin 31.0, Mean Corpuscular Hemoglobin Concent 32.6, Mean Corpuscular Volume 95, Mean Platelet Volume 9.9, Metamyelocytes % 0, Monocytes # 0.4, Monocytes # (Auto) , Monocytes % (Manual) 2, Monocytes (%) (Auto) , Neutrophils # 14.1, Neutrophils # (Auto) , Neutrophils (%) (Auto) , Platelet Count 410, Potassium Level 4.0, Red Blood Count 4.64, Red Cell Distribution Width 12.5, Segmented Neutrophils % 75, Sodium Level 137, White Blood Count 18.79 24 Hr Result Diagram CBC BMP Last 24 Hrs 07/31/16 05:30 Micro Results pending Impressions acute cap and not responding to current rx antibiotics sor azt stopped and pcn begun at high dose. Assessment ASSESSMENT Aurelio Herrera is a 71 year old male admitted from ED 07/25 after 3 falls at home attributed to leg weakness and tripping. He has acute on chronic lower back pain and has been dealing with worsening BLE edema. He has had urinary retention and swan was placed in office by PCP 2 days prior to admit. He has other chronic problems including stage III COPD. On 07/28 he had worsening leukocytosis and although he had no increased cough or dyspnea, treatment for pneumonia was started because of adverse change on follow-up chest x-ray. PLAN * Community Acquired Pneumonia: Was not noted to be present on admit. Blood culture negative to date. Sputum pending. Acapella, guaifenesin, ceftriaxone, Add meropenum as wbc rising and chest x-ray worsening at this time. Condition worsening at this time. * Leukocytosis, Elevated CRP: Attributed to pneumonia. Had additional workup showing adverse CXR changes. Expected to improve with treatment of pneumonia. * BLE Edema: Uncertain cause. Could be due to fluid retention caused by lung disease. Had not had cardiac workup prior to this admit. Renal function appears preserved and there does not appear to be significant proteinuria. Echo pending but EF only mildly low at 50-55%. NT-pro-BNP only mildly elevated. JODY lopez. Furosemide. * Falls at home: Low vitamin D noted. PT/OT eval and treat. * Acute on Chronic Lower Back Pain, Lumbar Spinal Stenosis (L3-4, L4-5): Red flags: age, left leg weakness. Unable to tolerate MRI that had been ordered outpatient prior to admit. CT L-spine results as noted. PCP plans to refer to Dr. Paniagua in [place]. Oxycodone/acetaminophen, lidoderm for pain. * Constipation: Improved. Bowel regimen * Vitamin D Deficiency: Started ergocalciferol 50,000 IU weekly x 6 weeks. Follow with 2000 units PO daily. Recheck in 6 weeks. * Anxiety: Improved. Somewhat debilitating for him on admit. Offered lorazepam which was helpful. Monitor closely. At discharge to snf, may have to keep low-dose PRN available to help him with stress of changing environment. Would avoid continuing this long-term. * F/E/N: 2 gram sodium diet. Peripheral IV. I&O, daily weight. * Prophylaxis: Enoxaparin * Code Status: Full * Dispo: Met inpatient criteria 07/26. Expect 3 day stay then will need skilled care. Potential discharge in 07/31. CHRONIC ISSUES * Anxiety: Citalopram. Permit lorazepam, though monitor use closely. * Depression: Citalopram * Chronic Pack Pain: Oxycodone/acetaminophen * COPD Stage III: Albuterol PRN. Sub advair for symbicort. Sub tiotropium for Stiolto. Plan see above . to leave catheter in place for a few more days per Urology. KERRI MILES DO July 31, 2016 11:23
--- NOTE | 2016-07-31 13:12 | PT Daily Note Inpatient (E) ---
PT Daily Treatment Service Date/Time 07/31/16, 12:59 Medical Diagnosis: (1) Frequent falls ICD Code: R29.6 (2) Bilateral lower extremity edema ICD Code: R60.0 (3) Chronic back pain ICD Code: 724.5 (4) Strain of back muscle ICD Code: 847.9 Physical Therapy: (1) Chronic back pain ICD Code: 724.5 (2) Frequent falls ICD Code: R29.6 Precaution/Isolation: Standard Precautions Resuscitation Status: Full Code Fall Level: High Risk 51 or greater Barriers Limiting Function: Activity Tolerance Subjective Patient resting in bed reports being fatigued from having a chest x-ray this AM and getting out of bed several times. He has decreased pain complaints this date. 3L 02 this date, resting 02 saturation 90%, HR 80 bpm. Oxygen Delivery: Nasal cannula O2 liters/minute: 3 Treatments Extremity: Both Lower Extremity Assistance: AROM, Stretching Exercise: QS, Heel Slides, Hip Abduction, Hip Adduction Education/Plan Education PT adjusted 02 to 4L 02 for exercise and patient maintained 02 saturation in upper 80's throughout. 02 was returned to 3L 02 at rest. Assessment The patient had decreased 02 desaturation this date than yesterday. He continues to fatigue quickly but has less pain this date. Safety Awareness: Intact Response to Treatment: Improving Plan Patient would benefit from further strengthening, transfer training and ambulation as patient's medical status improves. Patient will be seen: Daily Saturday-Saturday Coding Time In: 1132 Time Out: 1154 Total Minutes: 22 Charges: 89935 Exercise Therp 15 m TEA JO PT July 31, 2016 13:12
--- NOTE | 2016-07-31 13:40 | NUR ---
PRN Percocet given at this time for c/o back pain. Pt encouraged to get up to chair this afternoon. Pt states "why? It hurts to move". Encouraged pt that he will only get weaker in bed and is at risk for pressure ulcers. Daughter is in agreeance with this nurse. Informed pt we will let abx infuse and pain pill take effect then will get up to the chair. Pt begrudgingly complies. Denies other needs.
[2016-07-31] MEDS ORDERED: VANCOMYCIN PHARMACY PROTOCOL IV SCH (14:15)
--- NOTE | 2016-07-31 15:23 | NUR ---
Vancomycin Dosing: Pharmacy Managed S: Pneumonia O: 71 yo male with CXR positive for RLL pneumonia and preliminary sputum cx positive for large amount of S. Aureus, blood cx negative to date; WBC up to 18,800 with 75% neutrophils; CRP elevated at 19.2 mg/dL; SCr 0.95, CrCl 71 mL/min. A/P: Patient originally started on Rocephin and Zithromax. Antibiotics escalated to Merrem and Vanco. Recommend vancomycin 1000 mg IV q12hr to achieve therapeutic goal of 15-20 mcg/mL. Predicted trough = 18.8 mcg/mL. Draw trough prior to 5th dose (08/02/16 at 0830).
[2016-07-31 16:09] VITALS: BP 126/67
[2016-07-31] MEDS: VANCOMYCIN 1,000 MG in SODIUM CHLORIDE 250 ML IV SCH ×2 (16:13→23:15)
--- NOTE | 2016-07-31 16:41 | NUR ---
After exercising with OT and using BSC, pt's sats were 87% sitting up in chair. Increased to 4L, continued at 87% after approx 5 mins. Slow deep breaths in through nose and out through mouth encouraged. Increased to 5L, continued at 87% after 2-3 mins. RT notified, sats increased to 90% on 5L within another 3 mins. Will continue to monitor.
--- NOTE | 2016-07-31 17:42 | OT Daily Note Inpatient (E) ---
OT Daily Treatment Service Date/Time 07/31/16, 17:30 Primary Diagnosis: (1) Frequent falls ICD Code: R29.6 (2) Bilateral lower extremity edema ICD Code: R60.0 (3) Chronic back pain ICD Code: 724.5 (4) Strain of back muscle ICD Code: 847.9 Treatment Diagnosis: (1) Weakness ICD Code: R53.1 Onset Date: 07/25/16 Start of Care Date: July 26, 2016 Precaution/Isolation: Standard Precautions Fall Level: High Risk 51 or greater Resuscitation Status: Full Code Pt reports he has been in pain today. States it may be because he has not been moving as much lately. Agreeable to get out of bed. Oxygen Needed: Nasal cannula O2 liters/minute: 4l Current Function Assessment Cognition Attention: Intact Memory: Intact Safety/Judgement: Intact Visual/Perceptual Skills Glassess: Yes Hearing: Impaired Hand Dominance Hand Dominance: Right Bed Mobility/Transfers Sit to Stand: CGA Pt completed functional mobility in room with CGA and use of FWW to increase endurance for self care tasks. Noted- pt required one rest break with education on deep breathing to ease shortness of breath. Assessed pt's O2 with it being 87. Increased oxygen to 4 L with it continuing to be 87%. Called nurse in and discussed with nurse. Toileting Pt completed transfer with CGA. Required moderate assistance for doffing of brief. Following toileting, pt required maximum assistance of toilet hygiene and brief management. Educated and discussed deep breathing during task. Education/Assessment Rehabilitation Potential: Good Pt's oxygen maintained at 87% with 4 L of oxygen. Notified nursing. POC Plan of Care Problems Identified: Activity Tolerance, ADLs, Balance, Lt UE Coordination, Lt UE Strength, Rt UE Coordination, Rt UE Strength, Safety Awareness Plan: Evaluation-OT, ADL/Self Care Management, Therapy Exercises, Therapy Activities, Pt/Family/Staff Education, Manual Frequency of OT: Five times weekly Duration of OT: Other (4 days ) Therapy to Include: ADL training, Balance with ADLs, Edema control, Manual therapy, Pt/family education, Therapeutic activities, UE strengthing Discharge Recommendations: TCU/Skilled NH Pt. Aware of Dx and Prognosis: Yes Pt. Aware of Risk & Benefit: Yes Goals: Discussed with patient, Discussed with family Short Term Goals STG Time Frame: 2 Days Will Dress Upper Extremity: With Min Assistance STG #1 Pt will participate in 15 min of ther-ex with use of energy conservation techniques as needed. Hand Alterations Tailor Goals LTG Time Frame: 4 Days Will Dress Upper Extremity: With Setup/SBA Will Dress Lower Extremity: With Min Assistance Will Bathe Self: With Min Assistance Will do Toilet Transfers: With Min Assistance Will do Toilieting: With Min Assistance LTG # 1 Pt will demonstrate ability to independently apply deep breathing techniques during daily activities and exercises to ease shortness of breath and improve performance. CPT/G Codes Time In: 15:39 Time Out: 16:11 Total Minutes: 32 ( ADL) CPT Codes: 64183 ADL EA () SANDRA LIVE OT July 31, 2016 17:42
--- NOTE | 2016-07-31 18:25 | NUR ---
Pt sitting up in chair, states "I found an exact position where I don't have any pain". Skin warm, dry, intact. Resprs nonlabored, even on 5L NC. SL intact. Jhoan patent to DD; clear, yellow drainage. Pt denies needs.
[2016-07-31] MEDS: PATCH REMOVAL TOP SCH (20:09)
[2016-08-01 00:13] VITALS: BP 142/74
[2016-08-01] MEDS: oxycODONE/ACETAMINOPHEN 10MG-325 MG (PERCOCET-10) TABLET PO PRN ×4 (05:10→20:20)
[2016-08-01] MEDS: MEROPENEM 1 GM in SODIUM CHLORIDE 100 ML IV SCH ×3 (05:10→20:21)
--- NOTE | 2016-08-01 06:43 | NUR ---
Patient has reports of pain throughout night with many complaints of pain, Percocet given when needed. Patient has 3 Bm's this shift. No needs at this time. Resting in bed with coffee.
--- NOTE | 2016-08-01 07:20 | NUR ---
Patient sitting up in bed on laptop upon shift assessment. Alert and oriented X3. Reports chronic back pain rated 3/10 on pain scale. Denies SOA, nausea, or other distress. Respirations currently even and non-labored on 5L of 02 per nc. Lung sounds diminished throughout. HR RRR. 1+ pitting edema noted to BLE. Mild excoriation noted to left top foot. Updated patient on plan of care for shift including pain management and IV antibiotic therapy. Call light in reach.
[2016-08-01] MEDS: FLUTICASONE/SALMETEROL HFA 115/21 MCG (ADVAIR) COMMON CANNISTER INH SCH ×2 (07:46→19:38)
[2016-08-01] MEDS: TIOTROPIUM 18 MCG/CAP (SPIRIVA) INHALER (5 CAPS) IH SCH (07:46)
[2016-08-01 07:49] VITALS: BP 110/68
--- NOTE | 2016-08-01 07:52 | NUR ---
Pt was on 5Lpm NC with SpO2 96-97%. O2 decreased to 3 Lpm.
--- NOTE | 2016-08-01 08:30 | NUR ---
Oxygen saturation currently 95% on 3L of . Denies SOA. Call light in reach.
[2016-08-01] MEDS: POTASSIUM CHLORIDE ER 20 MEQ TABLET PO SCH ×2 (08:38→18:11)
[2016-08-01] MEDS: LIDOCAINE (LIDODERM) 5% PATCH TOP SCH (08:38)
[2016-08-01] MEDS: POLYETHYLENE GLYCOL 17 GM (MIRALAX) PACKET PO SCH (08:38)
[2016-08-01] MEDS: guaiFENesin ER 600 MG (MUCINEX) TAB PO SCH ×2 (08:38→20:20)
[2016-08-01] MEDS: DOCUSATE SODIUM 100 MG (COLACE) CAP PO SCH ×2 (08:38→20:21)
[2016-08-01] MEDS: FUROSEMIDE 100 MG/10 ML (LASIX) VIAL IV SCH ×2 (08:38→13:55)
[2016-08-01] MEDS: NS FLUSH 3 ML DAILY IV SCH (08:38)
[2016-08-01] MEDS: CITALOPRAM 40 MG (CELEXA) TABLET PO SCH (08:38)
[2016-08-01] MEDS: ENOXAPARIN 40 MG/0.4 ML (LOVENOX) SYR SC SCH (08:39)
[2016-08-01] MEDS: VANCOMYCIN 1,000 MG in SODIUM CHLORIDE 250 ML IV SCH ×2 (08:39→20:20)
[2016-08-01] MEDS: TAMSULOSIN 0.4 MG (FLOMAX) CAP PO SCH (10:13)
--- NOTE | 2016-08-01 10:13 | NUR ---
Patient reports chronic back pain is unmanaged with Percocet Q6 schedule. Reports he takes PRN Percocet Q4 at home. Karen Joy APRN notified and new order received.
[2016-08-01 10:53] LABS: BASOPHILS % (AUTO) 0 % (0-2); EOSINOPHILS # (AUTO) 0.2 10^3uL; EOSINOPHILS % (AUTO) 1 % (0-4); LYMPHOCYTES # (AUTO) 0.9 X10^3; MEAN CORPUSCULAR HEMOGLOBIN 31.2 PG (26.0-34.0); MEAN CORPUSCULAR HGB CONC 32.5 g/dL (31.0-37.0); MEAN CORPUSCULAR VOLUME 96 FL (80-100); MEAN PLATELET VOLUME 9.4 FL (6.0-9.5); MONOCYTES # (AUTO) 1.6 X10^3; MONOCYTES % (AUTO) 11 % (3-11); NEUTROPHILS # (AUTO) 12.3 X10^3; NEUTROPHILS % (AUTO) 81 % (51-67); PLATELET COUNT 362 10^3uL (150-450); WHITE BLOOD COUNT 15.05 10^3uL (4.0-11.0)
--- NOTE | 2016-08-01 10:54 | Progress Note (E) ---
Progress Note S: Awake in bed- no pain - feels some better, has no energy- I'm going to try to move more today" O: I & O Past 24 hrs 08/01/16 07:00 Intake Total 1541 ml Output Total 2050 ml Balance -509 ml Intake Oral 1541 ml Output Urine Total 2050 ml # Bowel Movements 3 Vital Signs Date Time Temp Pulse Resp B/P Pulse Ox O2 Delivery O2 Flow Rate FiO2 08/01/16 07:49 97.5 97 18 110/68 94 Oxymask 3.00 90 Current Medications Meropenem/Sodium Chloride 100 ml @ 200 mls/hr Q8HR IV Last administered on 08/01 05:10; Admin Dose 200 MLS/HR; Miscellaneous 1 each 1 each UD IV; Start 07/31/16 at 14:15 Vancomycin HCl/ Sodium Chloride 250 ml @ 165 mls/hr Q12HR IV Last administered on 08/01/16 08:39; Admin Dose 165 MLS/HR; Oxycodone/ Acetaminophen 1 tab Q4H PRN PO Last administered on 08/01/16 10:13 ; Admin Dose 1 TAB; Exam: GEN: Awake, alert, oriented, resting in bed comfortably. NAD at present. HEENT: EOMI, clear sclerae, somewhat dry oral mucosa. CV: RRR S1 S2 normal with no murmur LUNGS: Diminished throughout. Few crackles in the bases ABD: Soft, NT/ND with normal bowel sounds. : Swan in place- yellow urine EXTR: 1+ BLE edema. Weeping has stopped. Marked pedal edema was present on admit , L > R, but this is also improved. Compression hose on. INTEG: Punctate lesions BLE with weeping on admit but improving. Secondary excoriations healing. Surrounding erythema resolving. Large bulla, dorsum of right foot, resolving. MS: Pain on palpation of lumbar spine. Pain with supine positioning. NEURO: No focal motor neuro deficit. ASSESSMENT Aurelio Herrera is a 71 year old male admitted from ED 07/25 after 3 falls at home attributed to leg weakness and tripping. He has acute on chronic lower back pain and has been dealing with worsening BLE edema. He has had urinary retention and swan was placed in office by PCP 2 days prior to admit. He has other chronic problems including stage III COPD. On 07/28 he had worsening leukocytosis and although he had no increased cough or dyspnea, treatment for pneumonia was started because of adverse change on follow-up chest x-ray. PLAN * Community Acquired Pneumonia: Was not noted to be present on admit. Blood culture negative to date. Sputum Staph Aureus- . Acapella, guaifenesin,, Add meropenum and Vancomycin, as wbc rising and chest x-ray worsening at this time. Condition may be some improved this am * Leukocytosis, Elevated CRP: Attributed to pneumonia. Had additional workup showing adverse CXR changes. Expected to improve with treatment of pneumonia. * Urine retention- Dr Villarreal saw 07-31-16- recommended to leave swan in and he will see him in 3 weeks * BLE Edema: Uncertain cause. Could be due to fluid retention caused by lung disease. Had not had cardiac workup prior to this admit. Renal function appears preserved and there does not appear to be significant proteinuria. Echo pending but EF only mildly low at 50-55%. NT-pro-BNP only mildly elevated. JODY lopez. Furosemide. * Falls at home: Low vitamin D noted. PT/OT eval and treat. * Acute on Chronic Lower Back Pain, Lumbar Spinal Stenosis (L3-4, L4-5): Red flags: age, left leg weakness. Unable to tolerate MRI that had been ordered outpatient prior to admit. CT L-spine results as noted. PCP plans to refer to Dr. Paniagua in [place]. Oxycodone/acetaminophen, lidoderm for pain. * Constipation: Improved. Bowel regimen * Vitamin D Deficiency: Started ergocalciferol 50,000 IU weekly x 6 weeks. Follow with 2000 units PO daily. Recheck in 6 weeks. * Anxiety: Improved. Somewhat debilitating for him on admit. Offered lorazepam which was helpful. Monitor closely. At discharge to care home, may have to keep low-dose PRN available to help him with stress of changing environment. Would avoid continuing this long-term. * F/E/N: 2 gram sodium diet. Peripheral IV. I&O, daily weight. * Prophylaxis: Enoxaparin * Code Status: Full * Dispo: Met inpatient criteria 07/26. Expect several more days stay then will need skilled care. CHRONIC ISSUES * Anxiety: Citalopram. Permit lorazepam, though monitor use closely. * Depression: Citalopram * Chronic Pack Pain: Oxycodone/acetaminophen * COPD Stage III: Albuterol PRN. Sub advair for symbicort. Sub tiotropium for Stiolto. Karen Joy MOLDED GOODS EMBOSSING PRESS OPERATOR August 01, 2016 10:54
[2016-08-01] MEDS ORDERED: EUCERIN TOP PRN (11:10)
[2016-08-01] MEDS ORDERED: EUCERIN CREAM 16 OZ JAR (HYDROCERIN) TOP PRN (11:30)
--- NOTE | 2016-08-01 11:34 | PT Daily Note Inpatient (E) ---
PT Daily Treatment Service Date/Time 08/01/16, 11:28 Medical Diagnosis: (1) Frequent falls ICD Code: R29.6 (2) Bilateral lower extremity edema ICD Code: R60.0 (3) Chronic back pain ICD Code: 724.5 (4) Strain of back muscle ICD Code: 847.9 Physical Therapy: (1) Chronic back pain ICD Code: 724.5 (2) Frequent falls ICD Code: R29.6 Precaution/Isolation: Droplet Resuscitation Status: Full Code Fall Level: High Risk 51 or greater Barriers Limiting Function: Activity Tolerance Subjective Pt in bed, just finished seeing the , he agrees to PT, "I want to move more today!" Pain Level: 6 (08/25 hip & groin pain with standing and taking steps fwd/bwd) Oxygen Delivery: Nasal cannula O2 liters/minute: 4 Treatments Sit, Stand, Supine: Supine Extremity: Both Lower Extremity Assistance: AROM Repetition: 2 x 10 Exercise: AP, QS, Heel Slides, Hip Abduction, SLR Transfers Supine-Sit: Modified [place] (uses bedrail to help himself up) Sit-Stand from bed: Supervision or setup Stand-Sit: Contact Guard Assist Gait Ambulation: Contact Guard Assist Distance Walked: 5 steps fwd/bwd c/o right hip/groin pain with standing and walking, 08/25, nsg notified Weight Bearing Status: Full Assistive Device: FWW Gait Assist: Min Assist/Contact Guard Gait Description: Safe w/ Assistive Device, Shuffling, Short Step Length, Flexed Trunk Gait Training: Limitations: Fatigue, Decreased Strength, Decreased Balance Education/Plan Assessment Strength improving, participates well with therapy this a.m., will continue to progress gait as tolerated, coordinate pain meds with nsg prior to walking Safety Awareness: Impaired Response to Treatment: Improving Plan Cont POC Patient will be seen: Daily Saturday-Saturday Discharge Recommendations: TCU/Skilled NH Coding Time In: 1053 Time Out: 1127 Total Minutes: 34 Charges: 95068 Exercise Therp SHAR Thurman PTA August 01, 2016 11:34
[2016-08-01] MEDS: NS FLUSH 10 ML PRN IV (13:55)
[2016-08-01 15:36] VITALS: BP 106/66
--- NOTE | 2016-08-01 16:41 | OT Daily Note Inpatient (E) ---
OT Daily Treatment Service Date/Time 08/01/16, 16:30 Primary Diagnosis: (1) Frequent falls ICD Code: R29.6 (2) Bilateral lower extremity edema ICD Code: R60.0 (3) Chronic back pain ICD Code: 724.5 (4) Strain of back muscle ICD Code: 847.9 Treatment Diagnosis: (1) Weakness ICD Code: R53.1 Onset Date: 07/25/16 Start of Care Date: July 26, 2016 Precaution/Isolation: Droplet Fall Level: High Risk 51 or greater Resuscitation Status: Full Code Current Activity: Agrees to participate, In bed Pt states he is ready to make changes in lifestyle in order to go home. Pain Level: 7 Pain Location/Comment hip and neck with sitting/shaving activity. Oxygen Needed: Nasal cannula O2 liters/minute: 4 Current Function Assessment Mental Status Mental Status: Alert, Cooperative Cognition Attention: Intact Memory: Intact Safety/Judgement: Intact Visual/Perceptual Skills Glassess: Yes Hearing: Impaired Hand Dominance Hand Dominance: Right Endurance Activity Endurance: Becomes SOB, Needs energy saving techn, Poor, Requires freq rest breaks Pt 02 stats on 4 L 02 was 89% HR 74 upon approach. Education in diaphragmatic breathing and taking frequent breaks. Bed Mobility/Transfers Bed Mobility: SBA Supine from Sit: Minimum assist (for lower legs) Sit to Stand: CGA (bed), Minimum assist (chair with v/c for scooting to edge and leaning forward. Requird v/c for reaching back and pushing of chair) Chair Transfer: Minimum assist Sitting Balance: WFL ADLs Grooming: Grooming Position: Standing at counter Grooming Status: Setup/SBA, Minimum assist Grooming Assistance With-: Electric razor used, Washing face Comment Pt stood for 1 minute at sink for electric shaving before fatigue.Education required for putting 02 on backward for shaving versus taking it completely off for energy conservation. Pt continued shaving in seated position with some discomfort with hip and neck when he lifted his chin. Min A for areas he was unable to see well. 02 states 88% after activity and was very fatigued. Education/Assessment Education Provided: Energy conservation, Home management/safety Education Evalution: Needs reinforcement Teaching Method: Demonstration, Practice/repetition, Verbal Readiness to Learn: Good Treatment Tolerance: Lukas trmnt w/o complaints Problems Impacting Treatment: Needs freq rest breaks, SOB w/ activity Rehabilitation Potential: Good POC Plan of Care Problems Identified: Activity Tolerance, ADLs, Balance, Lt UE Coordination, Lt UE Strength, Rt UE Coordination, Rt UE Strength, Safety Awareness Plan: Evaluation-OT, ADL/Self Care Management, Therapy Exercises, Therapy Activities, Pt/Family/Staff Education, Manual Frequency of OT: Five times weekly Duration of OT: Other (4 days ) Therapy to Include: ADL training, Balance with ADLs, Edema control, Manual therapy, Pt/family education, Therapeutic activities, UE strengthing Discharge Recommendations: TCU/Skilled NH Pt. Aware of Dx and Prognosis: Yes Pt. Aware of Risk & Benefit: Yes Goals: Discussed with patient, Discussed with family Short Term Goals STG Time Frame: 2 Days Will Dress Upper Extremity: With Min Assistance STG #1 Pt will participate in 15 min of ther-ex with use of energy conservation techniques as needed. Vice President For Instruction Goals LTG Time Frame: 4 Days Will Dress Upper Extremity: With Setup/SBA Will Dress Lower Extremity: With Min Assistance Will Bathe Self: With Min Assistance Will do Toilet Transfers: With Min Assistance Will do Toilieting: With Min Assistance LTG # 1 Pt will demonstrate ability to independently apply deep breathing techniques during daily activities and exercises to ease shortness of breath and improve performance. CPT/G Codes Time In: 1134 Time Out: 1220 Total Minutes: 45 CPT Codes: 22110 Dee Kirkpatrick EA August 01, 2016 16:41
--- NOTE | 2016-08-01 17:23 | OT Daily Note Inpatient (E) ---
OT Daily Treatment Service Date/Time 08/01/16, 17:15 Primary Diagnosis: (1) Frequent falls ICD Code: R29.6 (2) Bilateral lower extremity edema ICD Code: R60.0 (3) Chronic back pain ICD Code: 724.5 (4) Strain of back muscle ICD Code: 847.9 Treatment Diagnosis: (1) Weakness ICD Code: R53.1 Onset Date: 07/25/16 Start of Care Date: July 26, 2016 Precaution/Isolation: Droplet Fall Level: High Risk 51 or greater Resuscitation Status: Full Code Pt reports doing okay. States has increased the pain medication, but is not helping any better. Oxygen Needed: Nasal cannula O2 liters/minute: 4 Current Function Assessment Cognition Attention: Intact Memory: Intact Safety/Judgement: Intact Visual/Perceptual Skills Glassess: Yes Hearing: Impaired Hand Dominance Hand Dominance: Right Endurance Pt completed bed mobility with modified independence. Sitting at EOB, pt worked on diaphragmatic breathing to ease shortness of breath. Assessed pt's oxygen with it being 87% with deep breathing. Notified nursing. Increased pt's oxygen to 5 L with education on continuation of deep breathing with cueing of proper technique. Education on relaxation techniques and energy conservation techniques within the home while sitting at EOB. Reassessed pt's oxygen with it continuing to 86-88%. Notified nursing. Pt completed bed mobility with minimal assistance for lower extremities. Education/Assessment Education Provided: Energy conservation, Home management/safety Education Evalution: Needs reinforcement Teaching Method: Demonstration, Practice/repetition, Verbal Readiness to Learn: Good Treatment Tolerance: Lukas trmnt w/o complaints Problems Impacting Treatment: Needs freq rest breaks, SOB w/ activity Rehabilitation Potential: Good Pt's oxygen's continue to maintain around 86-88 sitting at EOB with no change with increase in oxygen. Pt making slow progress with therapy. Continue with all goals to continue improving strength and independence with self care tasks. POC Plan of Care Problems Identified: Activity Tolerance, ADLs, Balance, Lt UE Coordination, Lt UE Strength, Rt UE Coordination, Rt UE Strength, Safety Awareness Plan: Evaluation-OT, ADL/Self Care Management, Therapy Exercises, Therapy Activities, Pt/Family/Staff Education, Manual Frequency of OT: Five times weekly Duration of OT: 1 week Therapy to Include: ADL training, Balance with ADLs, Edema control, Manual therapy, Pt/family education, Therapeutic activities, UE strengthing Discharge Recommendations: TCU/Skilled NH Pt. Aware of Dx and Prognosis: Yes Pt. Aware of Risk & Benefit: Yes Goals: Discussed with patient, Discussed with family Short Term Goals STG Time Frame: 2 Days Will Dress Upper Extremity: With Min Assistance STG #1 Pt will participate in 15 min of ther-ex with use of energy conservation techniques as needed. Gripper Machine Operator Goals LTG Time Frame: 4 Days Will Dress Upper Extremity: With Setup/SBA Will Dress Lower Extremity: With Min Assistance Will Bathe Self: With Min Assistance Will do Toilet Transfers: With Min Assistance (GOAL MET.) Will do Toilieting: With Min Assistance LTG # 1 Pt will demonstrate ability to independently apply deep breathing techniques during daily activities and exercises to ease shortness of breath and improve performance. CPT/G Codes Time In: 15:31 Time Out: 15:57 Total Minutes: 26 (05/13 ADL) SANDRA LIVE OT August 01, 2016 17:23
--- NOTE | 2016-08-01 18:22 | NUR ---
Patient requires PRN Percocet Q4 throughout day shift for continued c/o persistent back pain. Participates with therapies, oxygen requirement increased to 5L with activity. PRN Eucerin applied to top of left foot this afternoon for excoriation. Pleasant and cooperative with cares. Call light in reach.
[2016-08-01] MEDS: PATCH REMOVAL TOP SCH (20:21)
[2016-08-02 00:06] VITALS: BP 103/56
[2016-08-02] MEDS: oxycODONE/ACETAMINOPHEN 10MG-325 MG (PERCOCET-10) TABLET PO PRN ×5 (02:24→23:49)
--- NOTE | 2016-08-02 04:36 | NUR ---
1900-Pt is sitting up in bed watching tv, does rate pain 5/10 at this time and request a pain pill with his PM medications. SL is patent, no redness, swelling, or s/s of infection noted at this time. Call light is in reach, will continue to monitor. 2030-Pt rates pain 7/10 to back, gave 1 tab PO of Percocet 5/325mg for discomfort. Will continue to monitor. 0224-Pt rates pain 8/10 to back, gave 1 tab PO of Percocet 5/325mg for discomfort. Will continue to monitor. 0430-Pt is resting in bed asleep, does not appear to be in pain or discomfort at this time, will continue to monitor.
[2016-08-02] MEDS: MEROPENEM 1 GM in SODIUM CHLORIDE 100 ML IV SCH ×3 (05:18→21:12)
[2016-08-02 07:31] VITALS: BP 110/73
[2016-08-02] MEDS: TIOTROPIUM 18 MCG/CAP (SPIRIVA) INHALER (5 CAPS) IH SCH (07:35)
[2016-08-02] MEDS: FLUTICASONE/SALMETEROL HFA 115/21 MCG (ADVAIR) COMMON CANNISTER INH SCH ×2 (07:36→19:08)
--- NOTE | 2016-08-02 07:42 | NUR ---
SpO2 93% on 4Lpm Cannula. BS Clear
--- NOTE | 2016-08-02 08:00 | NUR ---
Pt resting in bed at this time. Skin warm, dry, intact. Resprs nonlabored, even on 3L NC. Damian bears in bed with pt. SL intact. Jhoan patent to DD; clear, yellow drainage. Pt denies needs.
[2016-08-02] MEDS: DOCUSATE SODIUM 100 MG (COLACE) CAP PO SCH ×2 (08:19→19:54)
[2016-08-02] MEDS: guaiFENesin ER 600 MG (MUCINEX) TAB PO SCH ×2 (08:19→19:54)
[2016-08-02] MEDS: CITALOPRAM 40 MG (CELEXA) TABLET PO SCH (08:19)
[2016-08-02] MEDS: POTASSIUM CHLORIDE ER 20 MEQ TABLET PO SCH ×2 (08:19→17:38)
[2016-08-02] MEDS ORDERED: SODIUM CHLORIDE 250 ML ONE (08:22)
[2016-08-02] MEDS: FUROSEMIDE 100 MG/10 ML (LASIX) VIAL IV SCH ×2 (08:26→13:56)
[2016-08-02] MEDS: NS FLUSH 10 ML PRN IV (08:26)
--- NOTE | 2016-08-02 08:34 | NUR ---
Vancomycin Dosing: Pharmacy Managed S: Pneumonia O: 71 yo male with CXR positive for RLL pneumonia and sputum cx showing MSSA, large amount, blood cx negative to date; WBC down to 15,000; SCr 0.95, CrCl 71 mL/min. Current therapy of Meropenem & Vancomycin. A/P: Dc'd Vancomycin & continue therapy with Meropenem.
[2016-08-02] MEDS: POLYETHYLENE GLYCOL 17 GM (MIRALAX) PACKET PO SCH (08:38)
[2016-08-02] MEDS: ERGOCALCIFEROL 50,000 UNITS (1.25 MG) CAPSULE (VITAMIN D2) PO SCH (08:38)
[2016-08-02] MEDS: ENOXAPARIN 40 MG/0.4 ML (LOVENOX) SYR SC SCH (08:38)
[2016-08-02 08:50] LABS: BASOPHILS % (AUTO) 0 % (0-2); EOSINOPHILS # (AUTO) 0.3 10^3uL; EOSINOPHILS % (AUTO) 2 % (0-4); LYMPHOCYTES # (AUTO) 1.4 X10^3; MEAN CORPUSCULAR HGB CONC 32.9 g/dL (31.0-37.0); MEAN CORPUSCULAR VOLUME 96 FL (80-100); MEAN PLATELET VOLUME 9.4 FL (6.0-9.5); MONOCYTES # (AUTO) 1.6 X10^3; MONOCYTES % (AUTO) 11 % (3-11); NEUTROPHILS # (AUTO) 10.7 X10^3; NEUTROPHILS % (AUTO) 76 % (51-67); PLATELET COUNT 438 10^3uL (150-450); WHITE BLOOD COUNT 14.05 10^3uL (4.0-11.0)
[2016-08-02 09:06] LABS: MEAN CORPUSCULAR HEMOGLOBIN 31.7 PG (26.0-34.0)
[2016-08-02] MEDS: NS FLUSH 3 ML DAILY IV SCH (09:36)
[2016-08-02] MEDS: TAMSULOSIN 0.4 MG (FLOMAX) CAP PO SCH (11:27)
[2016-08-02] MEDS: LIDOCAINE (LIDODERM) 5% PATCH TOP SCH (11:29)
--- NOTE | 2016-08-02 11:52 | OT Daily Note Inpatient (E) ---
OT Daily Treatment Service Date/Time 08/02/16, 11:42 Primary Diagnosis: (1) Frequent falls ICD Code: R29.6 (2) Bilateral lower extremity edema ICD Code: R60.0 (3) Chronic back pain ICD Code: 724.5 (4) Strain of back muscle ICD Code: 847.9 Treatment Diagnosis: (1) Weakness ICD Code: R53.1 Onset Date: 07/25/16 Start of Care Date: July 26, 2016 Precaution/Isolation: Droplet Fall Level: High Risk 51 or greater Resuscitation Status: Full Code Current Activity: Agrees to participate, Up in chair Pt had just returned from shower on 4 L 02 Stats 80% HR 82. After 5 minutes pt was at 83% with deep breathing exercises After 10 minutes 02 87% Pain Level: 7 Pain Location/Comment back, hips legs Oxygen Needed: Nasal cannula O2 liters/minute: 4 Current Function Assessment Mental Status Mental Status: Alert, Cooperative Cognition Attention: Intact Memory: Intact Safety/Judgement: Intact Visual/Perceptual Skills Glassess: Yes Hearing: Impaired Hand Dominance Hand Dominance: Right Skin and Positioning Positioning: Use seat cushion Comment Pt issued an air cushion to decrease pain and allow increased weight shifting for pressure release Neurological Balance: Stands with device, Stands with assistance Endurance Activity Endurance: Becomes SOB, Deep breathing, Instructions provided, Needs energy saving techn, Requires freq rest breaks Bed Mobility/Transfers Sit to Stand: Minimum assist, 1 person, Verbal clues Chair Transfer: Minimum assist, Verbal clues Dressing Dressing: Setup/SBA Pt education for LE dressing with adaptive equipment with case preparer and liner and sock aid for increased ease and energy conservation technique. Treatments Strengthening Exercise Upper Extremity Strength Exerc : Upper Extremity: Bilateral Exercise Type: AROM Repetitions: 10 X 1 Amount of Resistance: Yellow Comment PRE with v/c for breathing for increased energy with activity. Pt required frequent rest break. Pt raised to 5 L 02 for activity Pt never tootie above 88% even with breathing techniques and increased 02 Education/Assessment Education Provided: Energy conservation, Home management/safety Education Evalution: Needs reinforcement Teaching Method: Demonstration, Practice/repetition, Verbal Readiness to Learn: Good Treatment Tolerance: Lukas trmnt w/o complaints Problems Impacting Treatment: Needs freq rest breaks, SOB w/ activity Rehabilitation Potential: Good Pt had decreased 02 stats with activity. Pt is cooperative and interested in therapy but fatigues very easily and is in 7/10 pain with sitting in chair. POC Plan of Care Problems Identified: Activity Tolerance, ADLs, Balance, Lt UE Coordination, Lt UE Strength, Rt UE Coordination, Rt UE Strength, Safety Awareness Plan: Evaluation-OT, ADL/Self Care Management, Therapy Exercises, Therapy Activities, Pt/Family/Staff Education, Manual Frequency of OT: Five times weekly Duration of OT: 1 week Therapy to Include: ADL training, Balance with ADLs, Edema control, Manual therapy, Pt/family education, Therapeutic activities, UE strengthing Discharge Recommendations: TCU/Skilled NH Pt. Aware of Dx and Prognosis: Yes Pt. Aware of Risk & Benefit: Yes Goals: Discussed with patient, Discussed with family Short Term Goals STG Time Frame: 2 Days Will Dress Upper Extremity: With Min Assistance STG #1 Pt will participate in 15 min of ther-ex with use of energy conservation techniques as needed. Experimental Assembler Goals LTG Time Frame: 4 Days Will Dress Upper Extremity: With Setup/SBA Will Dress Lower Extremity: With Min Assistance Will Bathe Self: With Min Assistance Will do Toilet Transfers: With Min Assistance (GOAL MET.) Will do Toilieting: With Min Assistance LTG # 1 Pt will demonstrate ability to independently apply deep breathing techniques during daily activities and exercises to ease shortness of breath and improve performance. PROGRESS v/c required CPT/G Codes Time In: 1042 Time Out: 1115 Total Minutes: 32 CPT Codes: 27645 Neuromusc Ex (10), 10032 ADL EA (22) Dee Urias August 02, 2016 11:52
--- NOTE | 2016-08-02 12:34 | PT Daily Note Inpatient (E) ---
PT Daily Treatment Service Date/Time 08/02/16, 12:30 Medical Diagnosis: (1) Frequent falls ICD Code: R29.6 (2) Bilateral lower extremity edema ICD Code: R60.0 (3) Chronic back pain ICD Code: 724.5 (4) Strain of back muscle ICD Code: 847.9 Physical Therapy: (1) Chronic back pain ICD Code: 724.5 (2) Frequent falls ICD Code: R29.6 Precaution/Isolation: Droplet Resuscitation Status: Full Code Fall Level: High Risk 51 or greater Barriers Limiting Function: Activity Tolerance Subjective Pt sitting up in recliner. Agrees to some exercises. Oxygen Delivery: Nasal cannula O2 liters/minute: 4 Treatments Sit, Stand, Supine: Sitting, Long Sitting Extremity: Both Lower Extremity Assistance: AAROM, AROM Repetition: 2 x 10 Exercise: AP, Heel Slides, Hip Abduction, SLR, LAQ, Hip Flexion Education/Plan Assessment Pt reported no increase in back pain with exercises. Plan Patient will be seen: Daily Saturday-Saturday Discharge Recommendations: TCU/Skilled NH Coding Time In: 12:11 Time Out: 12:32 Total Minutes: 21 Charges: 61494 Exercise Therp 15 m (21 minutes) Alok Agarwal PTA August 02, 2016 12:34
--- NOTE | 2016-08-02 13:50 | NUR ---
PRN Percocet given at this time for c/o back pain. Denies other needs.
[2016-08-02 15:27] VITALS: BP 101/65
[2016-08-02] MEDS: BACITRACIN/POLYMYXIN OINTMENT 28.35 GM TUBE TOP SCH (17:38)
--- NOTE | 2016-08-02 17:58 | NUR ---
Pt resting in bed at this time. Sat up in chair for approx 3 hours this afternoon. Skin warm, dry, intact. Small sores noted on bridge of pt's nose where glasses rest, skin around sores is reddened. Dr Diallo notified, new orders entered. Resprs nonlabored, even on 3L NC. Damian bears in bed with pt. SL intact. Jhoan patent to DD; clear, yellow drainage. Pt denies needs.
[2016-08-02] MEDS: PATCH REMOVAL TOP SCH (21:13)
[2016-08-02 23:47] VITALS: BP 109/66
[2016-08-03] MEDS: oxycODONE/ACETAMINOPHEN 10MG-325 MG (PERCOCET-10) TABLET PO PRN ×5 (03:56→22:30)
[2016-08-03] MEDS: MEROPENEM 1 GM in SODIUM CHLORIDE 100 ML IV SCH ×3 (05:16→21:32)
--- NOTE | 2016-08-03 05:31 | NUR ---
LFA IV leaking. Discontinued; catheter tip intact. 20g SL initiated to RFA in one attempt by this nurse. Pt tolerates well.
--- NOTE | 2016-08-03 06:08 | NUR ---
Pt rests intermittently throughout night. PRN percocet provided for pain. Cont on 4L oxygen per nc.
[2016-08-03] MEDS: FLUTICASONE/SALMETEROL HFA 115/21 MCG (ADVAIR) COMMON CANNISTER INH SCH ×2 (07:52→19:53)
[2016-08-03] MEDS: TIOTROPIUM 18 MCG/CAP (SPIRIVA) INHALER (5 CAPS) IH SCH (07:53)
--- NOTE | 2016-08-03 08:03 | NUR ---
SpO2 91% on 4Lpm cannula. BS Clear
--- NOTE | 2016-08-03 08:04 | Progress Note (E) ---
Progress Note S: Awake and alert- looks much better, daughter here, breathing well, eating well, needs to keep working with PT. He is agreeable to halfway Saturday at [facility] No new issues today O: I & O Past 24 hrs 08/03/16 07:00 Intake Total 2530 ml Output Total 2750 ml Balance -220 ml Intake Oral 2009 ml IV Total 521 ml Output Urine Total 2750 ml Vital Signs Date Time Temp Pulse Resp B/P Pulse Ox O2 Delivery O2 Flow Rate FiO2 08/02/16 23:47 97.6 76 18 109/66 96 Nasal cannula 08/02/16 15:27 4.00 Exam: GEN: Awake, alert, oriented, resting in bed comfortably. NAD at present. HEENT: EOMI, clear sclerae, Moist mucosa. CV: RRR S1 S2 normal with no murmur LUNGS: Diminished throughout. improved breath sounds ABD: Soft, NT/ND with normal bowel sounds. : Swan in place- yellow urine EXTR: trace edema still compression hose off and he feels better- less edema today INTEG: dry skin MS: no new pains NEURO: No focal motor neuro deficit. ASSESSMENT Aurelio Herrera is a 71 year old male admitted from ED 07/25 after 3 falls at home attributed to leg weakness and tripping. He has acute on chronic lower back pain and has been dealing with worsening BLE edema. He has had urinary retention and swan was placed in office by PCP 2 days prior to admit. He has other chronic problems including stage III COPD. On 07/28 he had worsening leukocytosis and although he had no increased cough or dyspnea, treatment for pneumonia was started because of adverse change on follow-up chest x-ray. PLAN * Community Acquired Pneumonia: Was not noted to be present on admit. Blood culture negative to date. Sputum Staph Aureus- . Acapella, guaifenesin,, Continue Meropenum, Vanc dc'd now- WBC improving now * Leukocytosis, Elevated CRP: Attributed to pneumonia. Had additional workup showing adverse CXR changes. Expected to improve with treatment of pneumonia. * Urine retention- Dr Villarreal saw 07-31-16- recommended to leave swan in and he will see him in 3 weeks * BLE Edema: Uncertain cause. Could be due to fluid retention caused by lung disease. Had not had cardiac workup prior to this admit. Renal function appears preserved and there does not appear to be significant proteinuria. Echo pending but EF only mildly low at 50-55%. NT-pro-BNP only mildly elevated. JODY lopez. Furosemide. * Falls at home: Low vitamin D noted. PT/OT eval and treat. * Acute on Chronic Lower Back Pain, Lumbar Spinal Stenosis (L3-4, L4-5): Red flags: age, left leg weakness. Unable to tolerate MRI that had been ordered outpatient prior to admit. CT L-spine results as noted. PCP plans to refer to Dr. Paniagua in [place]. Oxycodone/acetaminophen, lidoderm for pain. * Constipation: Improved. Bowel regimen * Vitamin D Deficiency: Started ergocalciferol 50,000 IU weekly x 6 weeks. Follow with 2000 units PO daily. Recheck in 6 weeks. * Anxiety: Improved. Somewhat debilitating for him on admit. Offered lorazepam which was helpful. Monitor closely. At discharge to care home, may have to keep low-dose PRN available to help him with stress of changing environment. Would avoid continuing this long-term. * F/E/N: 2 gram sodium diet. Peripheral IV. I&O, daily weight. * Prophylaxis: Enoxaparin * Code Status: Full * Dispo: Met inpatient criteria 07/26. Planning for care home at [facility] by Saturday. CHRONIC ISSUES * Anxiety: Citalopram. Permit lorazepam, though monitor use closely. * Depression: Citalopram * Chronic Pack Pain: Oxycodone/acetaminophen * COPD Stage III: Albuterol PRN. Sub advair for symbicort. Sub tiotropium for Stiolto. Karen Joy SUPPLY OFFICER August 03, 2016 08:04
[2016-08-03 08:17] VITALS: BP 109/71
[2016-08-03] MEDS: NS FLUSH 3 ML DAILY IV SCH (09:00)
[2016-08-03] MEDS: POLYETHYLENE GLYCOL 17 GM (MIRALAX) PACKET PO SCH (09:00)
[2016-08-03] MEDS: POTASSIUM CHLORIDE ER 20 MEQ TABLET PO SCH ×2 (09:13→18:24)
[2016-08-03] MEDS: guaiFENesin ER 600 MG (MUCINEX) TAB PO SCH ×2 (09:13→21:32)
[2016-08-03] MEDS: CITALOPRAM 40 MG (CELEXA) TABLET PO SCH (09:13)
[2016-08-03] MEDS: DOCUSATE SODIUM 100 MG (COLACE) CAP PO SCH ×2 (09:13→21:32)
[2016-08-03] MEDS: FUROSEMIDE 100 MG/10 ML (LASIX) VIAL IV SCH ×2 (09:14→13:17)
[2016-08-03] MEDS: LIDOCAINE (LIDODERM) 5% PATCH TOP SCH (09:17)
--- NOTE | 2016-08-03 09:20 | NUR ---
Pt sits up on edge of bed to take AM medications. Lidoderm patches placed to mid back. Skin warm, dry, intact. Resprs nonlabored, even on 4L NC. When asked how he's doing, pt states "wonderful!". SL intact, flushes easily. PRN Percocet given at this time for c/o back pain rated "4 or 5". Staples patent to DD; clear, yellow drainage. Pt denies other needs. Call light within reach.
[2016-08-03] MEDS: BACITRACIN/POLYMYXIN OINTMENT 28.35 GM TUBE TOP SCH ×4 (09:22→21:40)
[2016-08-03] MEDS: ENOXAPARIN 40 MG/0.4 ML (LOVENOX) SYR SC SCH (09:23)
[2016-08-03] MEDS: NS FLUSH 10 ML PRN IV (09:24)
[2016-08-03] MEDS: TAMSULOSIN 0.4 MG (FLOMAX) CAP PO SCH (09:27)
--- NOTE | 2016-08-03 13:23 | NUR ---
PRN Percocet given at this time for c/o back pain. Denies other needs.
--- NOTE | 2016-08-03 15:41 | PT Daily Note Inpatient (E) ---
PT Daily Treatment Service Date/Time 08/03/16, 15:32 Medical Diagnosis: (1) Frequent falls ICD Code: R29.6 (2) Bilateral lower extremity edema ICD Code: R60.0 (3) Chronic back pain ICD Code: 724.5 (4) Strain of back muscle ICD Code: 847.9 Physical Therapy: (1) Chronic back pain ICD Code: 724.5 (2) Frequent falls ICD Code: R29.6 Precaution/Isolation: Droplet Resuscitation Status: Full Code Fall Level: High Risk 51 or greater Barriers Limiting Function: Activity Tolerance Subjective Pt sitting up in recliner. States his back and legs hurt. Agrees to therapy. Pain Location/Comment Pt given pain pill at 13:15 per nursing. Oxygen Delivery: Nasal cannula O2 liters/minute: 4 Treatments Sit, Stand, Supine: Sitting, Long Sitting Extremity: Both Lower Extremity Assistance: AROM Repetition: 1 x 15 Exercise: AP, QS, Heel Slides, Hip Abduction, SLR, LAQ, Hip Flexion Transfers Sit-Stand from bed: Contact Guard Assist (from recliner.) Stand-Sit: Contact Guard Assist Gait Distance Walked: Pt stood approxsimately 45 seconds using FWW and CGA. Pt able to march for about 15 seconds. Pt fatigued quickly and stated back pain increased. Pt positioned back in recliner. Education/Plan Assessment pt tolerated exercises fairly well but activity tolerance is still limited. Plan Patient will be seen: Daily Saturday-Saturday Discharge Recommendations: TCU/Skilled NH Coding Time In: 15:08 Time Out: 15:40 Total Minutes: 32 Charges: 82791 Exercise Therp 15 m (32 minutes) Alok Agarwal ASSOCIATE PROFESSOR OF MANAGEMENT August 03, 2016 15:41
[2016-08-03 15:58] VITALS: BP 105/77
--- NOTE | 2016-08-03 16:24 | OT Daily Note Inpatient (E) ---
OT Daily Treatment Service Date/Time 08/03/16, 16:24 Primary Diagnosis: (1) Frequent falls ICD Code: R29.6 (2) Bilateral lower extremity edema ICD Code: R60.0 (3) Chronic back pain ICD Code: 724.5 (4) Strain of back muscle ICD Code: 847.9 Treatment Diagnosis: (1) Weakness ICD Code: R53.1 Onset Date: 07/25/16 Start of Care Date: July 26, 2016 Precaution/Isolation: Droplet Fall Level: High Risk 51 or greater Resuscitation Status: Full Code Pt reports not doing much, just sitting here. Agrees to participate with therapy. Pain Level: 5 Pain Location/Comment Around the waist Oxygen Needed: Nasal cannula O2 liters/minute: 5 Current Function Assessment Cognition Attention: Intact Memory: Intact Safety/Judgement: Intact Visual/Perceptual Skills Glassess: Yes Hearing: Impaired Hand Dominance Hand Dominance: Right Treatments Strengthening Exercise Upper Extremity Strength Exerc : Comment Pt completed bed mobility with increased time to sitting at EOB, assessed pt's O2 and increasing it to 5L for engagement in TE. With deep breathing and increase, pt able to improve to 89 percent. Completed transfer from bed to chair. Pt participated in BUE strengthening with use of green theraband. Educated on importance of deep breathing during exercises to ease SOB. Pt completed 4 x 10 exercises with use of therapeutic rest breaks. Reassessed pt' s O2 oxygen with it being 93 percent. Pt in chair with call light in place following session. Education/Assessment Education Provided: Energy conservation, Home management/safety Education Evalution: Needs reinforcement Teaching Method: Demonstration, Practice/repetition, Verbal Readiness to Learn: Good Treatment Tolerance: Lukas trmnt w/o complaints Problems Impacting Treatment: Needs freq rest breaks, SOB w/ activity Rehabilitation Potential: Good Pt able to maintain oxygen in the 90s with use of deep breathing and increase in oxygen with activity. POC Plan of Care Problems Identified: Activity Tolerance, ADLs, Balance, Lt UE Coordination, Lt UE Strength, Rt UE Coordination, Rt UE Strength, Safety Awareness Plan: Evaluation-OT, ADL/Self Care Management, Therapy Exercises, Therapy Activities, Pt/Family/Staff Education, Manual Frequency of OT: Five times weekly Duration of OT: 1 week Therapy to Include: ADL training, Balance with ADLs, Edema control, Manual therapy, Pt/family education, Therapeutic activities, UE strengthing Discharge Recommendations: TCU/Skilled NH Pt. Aware of Dx and Prognosis: Yes Pt. Aware of Risk & Benefit: Yes Goals: Discussed with patient, Discussed with family Short Term Goals STG Time Frame: 2 Days Will Dress Upper Extremity: With Min Assistance STG #1 Pt will participate in 15 min of ther-ex with use of energy conservation techniques as needed. Retirement Goals LTG Time Frame: 4 Days Will Dress Upper Extremity: With Setup/SBA Will Dress Lower Extremity: With Min Assistance Will Bathe Self: With Min Assistance Will do Toilet Transfers: With Min Assistance (GOAL MET.) Will do Toilieting: With Min Assistance LTG # 1 Pt will demonstrate ability to independently apply deep breathing techniques during daily activities and exercises to ease shortness of breath and improve performance. PROGRESS v/c required CPT/G Codes Time In: 13:30 Time Out: 13:53 Total Minutes: 23 CPT Codes: 76663 Exercise Ther (05/10 TE) SANDRA LIVE OT August 03, 2016 16:24
[2016-08-03] MEDS: LORazepam 1 MG (ATIVAN) TABLET PO PRN (18:24)
--- NOTE | 2016-08-03 18:30 | NUR ---
PRN Percocet given at this time for c/o back pain. Skin warm, dry, intact. Resprs nonlabored, even on 4L NC. Bandaids to bridge of nose changed. SL intact. Pt denies needs.
--- NOTE | 2016-08-03 20:55 | NUR ---
Pt.'s daughter here with 'low sodium pizza'. Pt. appears to be enjoying both the company and the food.
[2016-08-03] MEDS: PATCH REMOVAL TOP SCH (21:35)
--- NOTE | 2016-08-03 21:35 | NUR ---
Pt. takes PO meds without difficulty; conversational with this nurse; verbalizes concern with timeline of upcoming plan of care; "I've got three weeks to get better in a lot of ways!" Pt. given much reassurance; encouraged to visualize one day at a time to spare getting overwhelmed. Pt. states he is looking forward to returning to his home.
--- NOTE | 2016-08-03 22:30 | NUR ---
Percocet 10 (1) PO given for back pain rated "5". Pt. resting with HOB elevated; O2 at 4L via NC; resp are unlabored; H2O replenished; call light by left hand.
[2016-08-04] VITALS: BP 109/59
--- NOTE | 2016-08-04 01:30 | NUR ---
Pt. resting quietly with eyes closed; HOB elevated; O2 at 4L via NC; resp are even and unlabored. Pt. appears to be in no distress. Call light and H2O within reach.
[2016-08-04] MEDS: oxycODONE/ACETAMINOPHEN 10MG-325 MG (PERCOCET-10) TABLET PO PRN ×5 (05:18→22:19)
[2016-08-04] MEDS: MEROPENEM 1 GM in SODIUM CHLORIDE 100 ML IV SCH ×3 (05:18→22:19)
--- NOTE | 2016-08-04 05:20 | NUR ---
Percocet 10 (1) PO given for back pain rated "6". Pt. pivoted with stand by assist to weigh chair prior to med administration; zero lower extremity edema noted. Merrem infusing without difficulty at this time at right forearm. Pt. states, "I slept so well last night-I can't believe it!" Pt. appeared to have rested soundly for aprx. 6.5 hrs. Staples to gravity draining dark urine; O2 at 4L via NC. Pt. does not exhibit labored breathing; SATS have been between 90-93% during this shift. H2O refreshed; call light within reach.
[2016-08-04] MEDS: FLUTICASONE/SALMETEROL HFA 115/21 MCG (ADVAIR) COMMON CANNISTER INH SCH ×2 (07:25→19:21)
[2016-08-04] MEDS: TIOTROPIUM 18 MCG/CAP (SPIRIVA) INHALER (5 CAPS) IH SCH (07:25)
--- NOTE | 2016-08-04 07:30 | NUR ---
Patient awake in bed upon shift assessment. Alert and oriented X3. Reports chronic back pain rated 3/10 on pain scale. Denies SOA. Respirations even and non-labored on 4L of 02. Lung sounds diminished throughout. HR RRR. JODY hose intact and no edema noted to BLE. Staples catheter draining clear yellow urine. Updated on plan of care for shift. Call light in reach.
[2016-08-04 07:59] VITALS: BP 105/60
[2016-08-04] MEDS: POTASSIUM CHLORIDE ER 20 MEQ TABLET PO SCH ×2 (08:55→17:17)
[2016-08-04] MEDS: NS FLUSH 3 ML DAILY IV SCH (08:55)
[2016-08-04] MEDS: CITALOPRAM 40 MG (CELEXA) TABLET PO SCH (08:55)
[2016-08-04] MEDS: POLYETHYLENE GLYCOL 17 GM (MIRALAX) PACKET PO SCH (08:55)
[2016-08-04] MEDS: guaiFENesin ER 600 MG (MUCINEX) TAB PO SCH ×2 (08:55→21:01)
[2016-08-04] MEDS: DOCUSATE SODIUM 100 MG (COLACE) CAP PO SCH ×2 (08:55→21:01)
[2016-08-04] MEDS: FUROSEMIDE 100 MG/10 ML (LASIX) VIAL IV SCH ×2 (08:56→13:12)
[2016-08-04] MEDS: LIDOCAINE (LIDODERM) 5% PATCH TOP SCH (08:56)
[2016-08-04] MEDS: ENOXAPARIN 40 MG/0.4 ML (LOVENOX) SYR SC SCH (08:56)
[2016-08-04] MEDS: TAMSULOSIN 0.4 MG (FLOMAX) CAP PO SCH (09:07)
--- NOTE | 2016-08-04 09:22 | PT Daily Note Inpatient (E) ---
PT Daily Treatment Service Date/Time 08/04/16, 09:13 Medical Diagnosis: (1) Frequent falls ICD Code: R29.6 (2) Bilateral lower extremity edema ICD Code: R60.0 (3) Chronic back pain ICD Code: 724.5 (4) Strain of back muscle ICD Code: 847.9 Physical Therapy: (1) Chronic back pain ICD Code: 724.5 (2) Frequent falls ICD Code: R29.6 Precaution/Isolation: Droplet Resuscitation Status: Full Code Fall Level: High Risk 51 or greater Barriers Limiting Function: Activity Tolerance Subjective Pain Level: 4 (4/10 R side flank pain prior to PT session, during and following PT session c/o of low back pain w/ no pain rating) Oxygen Delivery: Nasal cannula O2 liters/minute: 4L Treatments Sit, Stand, Supine: Supine, Sitting Extremity: Both Lower Extremity Assistance: AROM, Stretching, Other Comment PT has pt perform supine therex 2x10 reps w/ tavon LEs for improved strength and activity tolerance, needed for functional mobility. Pt does very well on this date w/ breathing in via nose and out via mouth. Cues needed occasionally to breath out via mouth. Pt performs AROM w/ tavon LEs, PT assists w/ stretching of tavon gastroc/soleus and PT notes clonus on RLE. PT notifies MD on floor when he arrives to check on patient. Pt has very restricted ROM in tavon ankles. Pt also performs seated therex x10 reps of hip flexion and LAQ. Fatigued by end of therex and needs rest break prior to ambulation. Repetition: 2 x 10 Exercise: AP, QS, Heel Slides, Hip Abduction, Hip Adduction, LAQ, Hip Flexion Static Balance: NBOS (w/ FWW) Duration: 2x 30 seconds Transfers Sit-Supine: Minimal Assistance Supine-Sit: Contact Guard Assist Sit-Stand from bed: Contact Guard Assist Gait Ambulation: Contact Guard Assist Distance Walked: 15-20 Pt ambulates very slowly 15-20' w/ FWW and CGA. Pt needs cues for upright posture and to progress gait. Pt fatigues quickly and needs short rest break. Following bout of ambulation SaO2 at 85%, and returns to 90% after 2.5 min. Pt resting in bed following PT session w/ call light within reach. Assistive Device: FWW Gait Assist: Min Assist/Contact Guard Gait Description: Wide Based Gait, Decreased [place], Slow, Short Step Length Gait Training: Limitations: SOB, Fatigue Education/Plan Education Education Needs: Use of Devices/Equipment Assessment Pt voices "This was a good workout for me this morning; I know I needed it." Pt is progressing, but PT recommends continued PT interventions to improve activity tolerance, functional mobility, and strength to help decrease fall risk. Plan Patient will be seen: Daily Saturday-Saturday Discharge Recommendations: TCU/Skilled NH Coding Time In: 08:20 Time Out: 08:55 Total Minutes: 35 Charges: 02978 Exercise Therp 15 m (TX 04/11 to help improve strength and mm endurance for transfers and stability w/ gait.), 75548 Ther Activity (TA 03/27 to improve activity tolerance and functional mobility.) DAISY ESTEBAN PT August 04, 2016 09:22
[2016-08-04] MEDS: BACITRACIN/POLYMYXIN OINTMENT 28.35 GM TUBE TOP SCH ×3 (13:12→21:01)
[2016-08-04 15:20] VITALS: BP 113/69
--- NOTE | 2016-08-04 15:24 | NUR ---
Patient titrated to 3L at [address] Diallo. Patient tolerating well. Denies SOA. Current saturation = 92%. RT aware. Will continue to monitor.
--- NOTE | 2016-08-04 18:21 | NUR ---
Uneventful day shift. Patient requires PRN Percocet Q4 for chronic back pain rated 3-4/10 on pain scale. Tolerates PT well. Maintaining oxygen saturation of 91-93% on 3L . Continues to diurese clear yellow urine via catheter. Pleasant and cooperative with cares. Call light in reach.
--- NOTE | 2016-08-04 18:40 | Progress Note-A/P (E) ---
Progress Note Subjective Subjective pneumonia cap improved Objective VS Vital Signs Date Time Temp Pulse Resp B/P Pulse Ox O2 Delivery O2 Flow Rate FiO2 08/04/16 15:20 98.5 87 18 113/69 91 Nasal cannula 08/02/16 15:27 4.00 I&O I & O Cumulative 08/03/16 08/04/16 Cumulative From/Thru 19:00 07:00 07/25/16 10:05 - 08/04/16 06:04 Intake Total 887 ml 1705 ml 80195 ml Output Total 1500 ml 750 ml 80022 ml Balance -613 ml 955 ml -7630 ml Current Medications Vital Signs Date Time Temp Pulse Resp B/P Pulse Ox O2 Delivery O2 Flow Rate FiO2 08/04/16 15:20 98.5 87 18 113/69 91 Nasal cannula 08/02/16 15:27 4.00 I & O 08/03/16 08/04/16 Cumulative From/Thru 19:00 07:00 07/25/16 10:05 - 08/04/16 06:04 Intake Total 887 ml 1705 ml 27894 ml Output Total 1500 ml 750 ml 16666 ml Balance -613 ml 955 ml -7630 ml Lab-Past 14 Days, 35 Results 07/25/16 09:43: Absolute Band Neutrophils 0.2, Alanine Aminotransferase (ALT/SGPT) 59, Albumin 4.1, Albumin/Globulin Ratio 1.108, Alkaline Phosphatase 88, Anion Gap 20.4H, Aspartate Amino Transf (AST/SGOT) 52H, BUN/Creatinine Ratio 17, Band Neutrophils % 1, Basophils # (Auto) , Basophils # (Manual) 0.0, Basophils % ( Manual) 0, Basophils (%) (Auto) , Blood Morphology Comment Normal, Blood Urea Nitrogen 19H, Calcium Level 9.6, Calcium/Ionized Calcium Ratio 4.0, Calculated Osmolality 274L, Carbon Dioxide Level 32H, Chloride Level 92L, Creatine Kinase MB 5.1, Creatinine 1.10, Differential Total Cells Counted 100, Eosinophils # 0.3 , Eosinophils # (Auto) , Eosinophils % (Manual) 2, Eosinophils (%) (Auto) , Estimat Glomerular Filtration Rate 80.1, Estimated GFR (Non- 66.2, Glucose Level 96, Hematocrit 44.50, Hemoglobin 14.4, Lymphocytes # 1.5, Lymphocytes # (Auto) , Lymphocytes % (Manual) 9L, Lymphocytes (%) (Auto) , Mean Corpuscular Hemoglobin 31.4, Mean Corpuscular Hemoglobin Concent 32.4, Mean Corpuscular Volume 97, Mean Platelet Volume 9.9H, Monocytes # 1.1, Monocytes # ( Auto) , Monocytes % (Manual) 7, Monocytes (%) (Auto) , QB-[id number]-[id number]-Type Natriuretic Peptide 462H, Neutrophils # 13.3, Neutrophils # (Auto) , Neutrophils (%) (Auto) , Platelet Count 259, Potassium Level 3.6, Prothromb Time International Ratio 1.1, Prothrombin Time 12.1, Red Blood Count 4.59, Red Cell Distribution Width 12.8, Segmented Neutrophils % 81H, Sodium Level 141, Thyroid Stimulating Hormone (TSH) 1.56, Total Bilirubin 1.0, Total Creatine Kinase 245*H, Total Protein 7.8, Troponin I < 0.012, White Blood Count 16.43H 07/25/16 10:43: 25-Hydroxy Vitamin D Total < 12.8L 07/25/16 11:05: Urine Bacteria 1+, Urine Bilirubin Negative, Urine Blood 3+H, Urine Clarity Clear, Urine Collection Type Catheter, Urine Color Yellow, Urine Glucose (UA) Negative, Urine Hyaline Casts 2+H, Urine Ketones Negative, Urine Leukocyte Esterase 1+H, Urine Microscopic RBC >100, Urine Nitrite Negative, Urine Protein Negative, Urine Specific Geff 1.020, Urine Squamous Epithelial Cells 2-5, Urine Urobilinogen 1.0, Urine WBC 5-10H, Urine pH 5.5, Volume Urine Centrifuged 12 ml 07/26/16 05:30: Albumin 3.1#L, Anion Gap 10.3, Basophils # (Auto) 0.0, Basophils (%) (Auto) 0, Blood Urea Nitrogen 18, Calcium Level 8.8, Carbon Dioxide Level 36H, Chloride Level 95L, Creatinine 0.92, Eosinophils # (Auto) 0.3, Eosinophils (%) (Auto) 2, Estimat Glomerular Filtration Rate 98.4, Estimated GFR (Non- 81.3, Glucose Level 96, Hematocrit 38.90L, Hemoglobin 12.7L, Lymphocytes # (Auto ) 1.0, Lymphocytes (%) (Auto) 8L, Mean Corpuscular Hemoglobin 31.8, Mean Corpuscular Hemoglobin Concent 32.6, Mean Corpuscular Volume 97, Mean Platelet Volume 9.6H, Monocytes # (Auto) 1.2, Monocytes (%) (Auto) 9, Neutrophils # (Auto ) 10.4, Neutrophils (%) (Auto) 80H, Platelet Count 224, Potassium Level 3.4L, Red Blood Count 4.00L, Red Cell Distribution Width 12.4, Sodium Level 138, White Blood Count 12.95H, C-Reactive Protein 4.70H, Magnesium Level 2.1, Phosphorus Level 3.8 07/26/16 14:30: Urine Bacteria Rare, Urine Bilirubin Negative, Urine Blood 3+H, Urine Clarity Cloudy, Urine Collection Type Catheter, Urine Color Dark yellow, Urine Glucose ( UA) Negative, Urine Ketones Negative, Urine Leukocyte Esterase 1+H, Urine Microscopic RBC >100, Urine Nitrite Negative, Urine Protein Negative, Urine Specific Geff 1.015, Urine Squamous Epithelial Cells 0-2, Urine Urobilinogen 2.0H, Urine WBC 5-10H, Urine pH 7.0, Volume Urine Centrifuged 12 ml 07/27/16 05:25: Albumin 3.3L, Anion Gap 10.6, Basophils # (Auto) 0.0, Basophils (%) (Auto) 0, Blood Urea Nitrogen 17, Calcium Level 9.1, Carbon Dioxide Level 35H, Chloride Level 95L, Creatinine 0.83, Eosinophils # (Auto) 0.3, Eosinophils (%) (Auto) 2, Estimat Glomerular Filtration Rate 110.8, Estimated GFR (Non- 91.6, Glucose Level 89, Hematocrit 40.50, Hemoglobin 13.1L, Lymphocytes # (Auto ) 1.1, Lymphocytes (%) (Auto) 8L, Magnesium Level 2.2, Mean Corpuscular Hemoglobin 31.4, Mean Corpuscular Hemoglobin Concent 32.3, Mean Corpuscular Volume 97, Mean Platelet Volume 9.5, Monocytes # (Auto) 1.2, Monocytes (%) (Auto ) 9, Neutrophils # (Auto) 10.9, Neutrophils (%) (Auto) 80H, Phosphorus Level 3.6 , Platelet Count 233, Potassium Level 4.0, Red Blood Count 4.17L, Red Cell Distribution Width 12.4, Sodium Level 137, White Blood Count 13.56H 07/28/16 05:10: Albumin 3.2L, Anion Gap 15.6H, Basophils # (Auto) , Basophils (%) (Auto) , Blood Urea Nitrogen 24H, Calcium Level 9.3, Carbon Dioxide Level 35H, Chloride Level 93L, Creatinine 0.96, Eosinophils # (Auto) , Eosinophils (%) (Auto) , Estimat Glomerular Filtration Rate 93.7, Estimated GFR (Non- 77.4, Glucose Level 108#, Hematocrit 42.50, Hemoglobin 13.8, Lymphocytes # (Auto ) , Lymphocytes (%) (Auto) , Mean Corpuscular Hemoglobin 31.2, Mean Corpuscular Hemoglobin Concent 32.5, Mean Corpuscular Volume 96, Mean Platelet Volume 9.8H, Monocytes # (Auto) , Monocytes (%) (Auto) , Neutrophils # (Auto) , Neutrophils ( %) (Auto) , Phosphorus Level 3.8, Platelet Count 252, Potassium Level 4.3, Red Blood Count 4.43L, Red Cell Distribution Width 12.6, Sodium Level 139, White Blood Count 24.09H, Absolute Band Neutrophils 0.7, Band Neutrophils % 3, Basophils # (Manual) 0.0, Basophils % (Manual) 0, Blood Morphology Comment Normal, C-Reactive Protein 16.10H, Differential Total Cells Counted 100, Eosinophils # 0.0, Eosinophils % (Manual) 0, Lymphocytes # 1.7, Lymphocytes % ( Manual) 7L, Metamyelocytes % 0, Monocytes # 0.0, Monocytes % (Manual) 0L, Neutrophils # 21.7, Segmented Neutrophils % 90H 07/29/16 05:15: Albumin 3.5, Anion Gap 18.6H, Basophils # (Auto) , Basophils (%) (Auto) , Blood Urea Nitrogen 25H, Calcium Level 9.4, Carbon Dioxide Level 29, Chloride Level 93L, Creatinine 0.84, Eosinophils # (Auto) , Eosinophils (%) (Auto) , Estimat Glomerular Filtration Rate 109.3, Estimated GFR (Non- 90.3, Glucose Level 95, Hematocrit 43.00, Hemoglobin 14.2, Lymphocytes # (Auto) , Lymphocytes (%) (Auto) , Mean Corpuscular Hemoglobin 31.4, Mean Corpuscular Hemoglobin Concent 33.0, Mean Corpuscular Volume 95, Mean Platelet Volume 10.1H , Monocytes # (Auto) , Monocytes (%) (Auto) , Neutrophils # (Auto) , Neutrophils (%) (Auto) , Phosphorus Level 3.6, Platelet Count 283, Potassium Level 4.0, Red Blood Count 4.52, Red Cell Distribution Width 12.6, Sodium Level 136, White Blood Count 22.77H, Absolute Band Neutrophils 0.9, Band Neutrophils % 4, Basophils # (Manual) 0.0, Basophils % (Manual) 0, Blood Morphology Comment Normal, Differential Total Cells Counted 100, Eosinophils # 0.0, Eosinophils % ( Manual) 0, Lymphocytes # 1.4, Lymphocytes % (Manual) 6L, Metamyelocytes % 0, Monocytes # 1.3, Monocytes % (Manual) 6, Neutrophils # 19.1, Segmented Neutrophils % 84H 07/30/16 05:40: Absolute Band Neutrophils 0.0, Albumin 3.4, Anion Gap 14.1, Band Neutrophils % 0 , Basophils # (Auto) , Basophils # (Manual) 0.0, Basophils % (Manual) 0, Basophils (%) (Auto) , Blood Morphology Comment Normal, Blood Urea Nitrogen 23H , C-Reactive Protein 19.20H, Calcium Level 9.2, Carbon Dioxide Level 35H, Chloride Level 90L, Creatinine 0.88, Differential Total Cells Counted 100, Eosinophils # 0.0, Eosinophils # (Auto) , Eosinophils % (Manual) 0, Eosinophils (%) (Auto) , Estimat Glomerular Filtration Rate 103.6, Estimated GFR (Non- 85.6, Glucose Level 100, Hematocrit 39.50, Hemoglobin 13.0L, Lymphocytes # 2.1, Lymphocytes # (Auto) , Lymphocytes % (Manual) 12L, Lymphocytes (%) (Auto) , Mean Corpuscular Hemoglobin 31.4, Mean Corpuscular Hemoglobin Concent 32.9, Mean Corpuscular Volume 95, Mean Platelet Volume 9.6H, Metamyelocytes % 0, Monocytes # 0.5, Monocytes # (Auto) , Monocytes % (Manual) 3 , Monocytes (%) (Auto) , Neutrophils # 14.7, Neutrophils # (Auto) , Neutrophils (%) (Auto) , Phosphorus Level 4.3, Platelet Count 308, Potassium Level 3.6, Red Blood Count 4.14L, Red Cell Distribution Width 12.4, Segmented Neutrophils % 85H , Sodium Level 136, White Blood Count 17.29H 07/30/16 12:50: Du Test Pos, Arterial Blood Base Excess 9.0H, Arterial Blood HCO3 32.0H, Arterial Blood Oxygen Saturation 80L, Arterial Blood Partial Pressure CO2 41, Arterial Blood Partial Pressure O2 41*L, Arterial Blood Total CO2 33.0H, Arterial Blood pH 7.50H, Blood Gas Puncture Site Right radial 07/31/16 05:30: Absolute Band Neutrophils 0.0, Anion Gap 15.3H, Band Neutrophils % 0, Basophils # (Auto) , Basophils # (Manual) 0.0, Basophils % (Manual) 0, Basophils (%) (Auto ) , Blood Morphology Comment Normal, Blood Urea Nitrogen 24H, Calcium Level 9.7 , Carbon Dioxide Level 35H, Chloride Level 90L, Creatinine 0.95, Differential Total Cells Counted 100, Eosinophils # 0.5, Eosinophils # (Auto) , Eosinophils % (Manual) 3, Eosinophils (%) (Auto) , Estimat Glomerular Filtration Rate 94.8, Estimated GFR (Non- 78.4, Glucose Level 115H, Hematocrit 44.20, Hemoglobin 14.4, Lymphocytes # 3.7, Lymphocytes # (Auto) , Lymphocytes % (Manual ) 20, Lymphocytes (%) (Auto) , Mean Corpuscular Hemoglobin 31.0, Mean Corpuscular Hemoglobin Concent 32.6, Mean Corpuscular Volume 95, Mean Platelet Volume 9.9H, Metamyelocytes % 0, Monocytes # 0.4, Monocytes # (Auto) , Monocytes % (Manual) 2L, Monocytes (%) (Auto) , Neutrophils # 14.1, Neutrophils # (Auto) , Neutrophils (%) (Auto) , Platelet Count 410, Potassium Level 4.0, Red Blood Count 4.64, Red Cell Distribution Width 12.5, Segmented Neutrophils % 75H, Sodium Level 137, White Blood Count 18.79H, BUN/Creatinine Ratio 25H 08/01/16 10:45: Basophils # (Auto) 0.0, Basophils (%) (Auto) 0, Eosinophils # (Auto) 0.2, Eosinophils (%) (Auto) 1, Hematocrit 41.50, Hemoglobin 13.5, Lymphocytes # (Auto ) 0.9, Lymphocytes (%) (Auto) 6L, Mean Corpuscular Hemoglobin 31.2, Mean Corpuscular Hemoglobin Concent 32.5, Mean Corpuscular Volume 96, Mean Platelet Volume 9.4, Monocytes # (Auto) 1.6, Monocytes (%) (Auto) 11, Neutrophils # (Auto ) 12.3, Neutrophils (%) (Auto) 81H, Platelet Count 362, Red Blood Count 4.33L, Red Cell Distribution Width 12.2, White Blood Count 15.05H 08/02/16 08:25: C-Reactive Protein 6.90H 08/02/16 08:35: Basophils # (Auto) 0.0, Basophils (%) (Auto) 0, Eosinophils # (Auto) 0.3, Eosinophils (%) (Auto) 2, Hematocrit 42.00, Hemoglobin 13.8, Lymphocytes # (Auto ) 1.4, Lymphocytes (%) (Auto) 10L, Mean Corpuscular Hemoglobin 31.7, Mean Corpuscular Hemoglobin Concent 32.9, Mean Corpuscular Volume 96, Mean Platelet Volume 9.4, Monocytes # (Auto) 1.6, Monocytes (%) (Auto) 11, Neutrophils # (Auto ) 10.7, Neutrophils (%) (Auto) 76H, Platelet Count 438, Red Blood Count 4.36L, Red Cell Distribution Width 12.1, White Blood Count 14.05H General Awake, alert, oriented to person, place, and situation. NAD at present pt short of breath resting and desats with minimal activity HEENT EOMI, PERRL CV RRR, S1 S2 audible Lungs clear now, productivity slowed plan to skilled a.m.. Abdomen Soft non distended, no tenderness to palpation, no masses Extremities No edema Integumentary dry with tenting bilat extremities. Neuro No focal motor neuro deficits but weakness right leg with some foot drop this morning only Musculoskeletal weak and poor ability to weight bear. Labs, Most Recent- Progress Note S: Awake and alert- looks much better, daughter here, breathing well, eating well, needs to keep working with PT. He is agreeable to snf Saturday at [facility] No new issues today O: I & O Past 24 hrs 08/03/16 07:00 Intake Total 2530 ml Output Total 2750 ml Balance -220 ml Intake Oral 2009 ml IV Total 521 ml Output Urine Total 2750 ml Vital Signs Date Time Temp Pulse Resp B/P Pulse Ox O2 Delivery O2 Flow Rate FiO2 08/02/16 23:47 97.6 76 18 109/66 96 Nasal cannula 08/02/16 15:27 4.00 Exam: GEN: Awake, alert, oriented, resting in bed comfortably. NAD at present. HEENT: EOMI, clear sclerae, Moist mucosa. CV: RRR S1 S2 normal with no murmur LUNGS: Diminished throughout. improved breath sounds ABD: Soft, NT/ND with normal bowel sounds. : Swan in place- yellow urine EXTR: trace edema still compression hose off and he feels better- less edema today INTEG: dry skin MS: no new pains NEURO: No focal motor neuro deficit. see note above re right foot. ASSESSMENT Aurelio Herrera is a 71 year old male admitted from ED 07/25 after 3 falls at home attributed to leg weakness and tripping. He has acute on chronic lower back pain and has been dealing with worsening BLE edema. He has had urinary retention and swan was placed in office by PCP 2 days prior to admit. He has other chronic problems including stage III COPD. On 07/28 he had worsening leukocytosis and although he had no increased cough or dyspnea, treatment for pneumonia was started because of adverse change on follow-up chest x-ray. PLAN * Community Acquired Pneumonia: Was not noted to be present on admit. Blood culture negative to date. Sputum Staph Aureus- . Acapella, guaifenesin,, Continue Meropenum, Vanc dc'd now- WBC improving now * Leukocytosis, Elevated CRP: Attributed to pneumonia. Had additional workup showing adverse CXR changes. Expected to improve with treatment of pneumonia. * Urine retention- Dr Villarreal saw 07-31-16- recommended to leave swan in and he will see him in 3 weeks * BLE Edema: Uncertain cause. Could be due to fluid retention caused by lung disease. Had not had cardiac workup prior to this admit. Renal function appears preserved and there does not appear to be significant proteinuria. Echo pending but EF only mildly low at 50-55%. NT-pro-BNP only mildly elevated. JODY hose. Furosemide. * Falls at home: Low vitamin D noted. PT/OT eval and treat. * Acute on Chronic Lower Back Pain, Lumbar Spinal Stenosis (L3-4, L4-5): Red flags: age, left leg weakness. Unable to tolerate MRI that had been ordered outpatient prior to admit. CT L-spine results as noted. PCP plans to refer to Dr. Paniagua in [place]. Oxycodone/acetaminophen, lidoderm for pain. * Constipation: Improved. Bowel regimen * Vitamin D Deficiency: Started ergocalciferol 50,000 IU weekly x 6 weeks. Follow with 2000 units PO daily. Recheck in 6 weeks. * Anxiety: Improved. Somewhat debilitating for him on admit. Offered lorazepam which was helpful. Monitor closely. At discharge to alf, may have to keep low-dose PRN available to help him with stress of changing environment. Would avoid continuing this long-term. * F/E/N: 2 gram sodium diet. Peripheral IV. I&O, daily weight. * Prophylaxis: Enoxaparin * Code Status: Full * Dispo: Met inpatient criteria 07/26. Planning for alf at [facility] by Saturday. CHRONIC ISSUES * Anxiety: Citalopram. Permit lorazepam, though monitor use closely. * Depression: Citalopram * Chronic Pack Pain: Oxycodone/acetaminophen * COPD Stage III: Albuterol PRN. Sub advair for symbicort. Sub tiotropium for Stiolto. 24 Hr Result Diagram Microbiology 07/28/16 Blood Culture - Final, Complete No Growth in 5 days 07/28/16 Gram Stain - Final, Complete 07/28/16 Sputum Culture - Final, Complete 07/26/16 Urine Culture - Final, Complete Micro Results pending Impressions acute cap and not responding to current rx antibiotics sor azt stopped and pcn begun at high dose. Assessment ASSESSMENT Aurelio Herrera is a 71 year old male admitted from ED 07/25 after 3 falls at home attributed to leg weakness and tripping. He has acute on chronic lower back pain and has been dealing with worsening BLE edema. He has had urinary retention and swan was placed in office by PCP 2 days prior to admit. He has other chronic problems including stage III COPD. On 07/28 he had worsening leukocytosis and although he had no increased cough or dyspnea, treatment for pneumonia was started because of adverse change on follow-up chest x-ray. PLAN * Community Acquired Pneumonia: Was not noted to be present on admit. Blood culture negative to date. Sputum pending. Acapella, guaifenesin, ceftriaxone, Add meropenum as wbc rising and chest x-ray worsening at this time. Condition worsening at this time. * Leukocytosis, Elevated CRP: Attributed to pneumonia. Had additional workup showing adverse CXR changes. Expected to improve with treatment of pneumonia. * BLE Edema: Uncertain cause. Could be due to fluid retention caused by lung disease. Had not had cardiac workup prior to this admit. Renal function appears preserved and there does not appear to be significant proteinuria. Echo pending but EF only mildly low at 50-55%. NT-pro-BNP only mildly elevated. JODY hose. Furosemide. * Falls at home: Low vitamin D noted. PT/OT eval and treat. * Acute on Chronic Lower Back Pain, Lumbar Spinal Stenosis (L3-4, L4-5): Red flags: age, left leg weakness. Unable to tolerate MRI that had been ordered outpatient prior to admit. CT L-spine results as noted. PCP plans to refer to Dr. Paniagua in [place]. Oxycodone/acetaminophen, lidoderm for pain. * Constipation: Improved. Bowel regimen * Vitamin D Deficiency: Started ergocalciferol 50,000 IU weekly x 6 weeks. Follow with 2000 units PO daily. Recheck in 6 weeks. * Anxiety: Improved. Somewhat debilitating for him on admit. Offered lorazepam which was helpful. Monitor closely. At discharge to alf, may have to keep low-dose PRN available to help him with stress of changing environment. Would avoid continuing this long-term. * F/E/N: 2 gram sodium diet. Peripheral IV. I&O, daily weight. * Prophylaxis: Enoxaparin * Code Status: Full * Dispo: Met inpatient criteria 07/26. Expect 3 day stay then will need skilled care. Potential discharge in 07/31. CHRONIC ISSUES * Anxiety: Citalopram. Permit lorazepam, though monitor use closely. * Depression: Citalopram * Chronic Pack Pain: Oxycodone/acetaminophen * COPD Stage III: Albuterol PRN. Sub advair for symbicort. Sub tiotropium for Stiolto. Now clinically responding , Patient will require conditioning as he is deconditioned. Plan see above . to leave catheter in place for a few more days per Urology. KERRI MILES DO August 04, 2016 18:39
--- NOTE | 2016-08-04 19:24 | NUR ---
Pt found lying in bed on 3 l/min NC, SPO2 90%, HR 88, RR 18 and non labored. Pt has clear BS in all lobes. 2P Advair 115/21 via Spacer tolerated well, mouth rinsed post Tx.
--- NOTE | 2016-08-04 21:05 | NUR ---
Pt. resting quietly; HOB elevated; watching videos on lap top. Pt. takes PO meds one at a time; Bacitracin applied to each side of nose and new circular band aids applied. Pt. curious about current O2 SATS: 90-95% on 3L of O2. Pt. very conversational and pleasant; requests pain med when available. "I try not to laugh as it really hurts my back--shooting pain; but I am ok if I am just talking or sitting here." H2O and call light within reach.
[2016-08-04] MEDS: PATCH REMOVAL TOP SCH (22:19)
--- NOTE | 2016-08-04 22:20 | NUR ---
Percocet 10 (1) PO given for back pain rated "3"; Merrem infusing without difficulty at right forearm; pt. finishing up a can of Ensure. Pt.'s resp are slightly labored with extended conversation; unlabored at rest. Call light within reach.
[2016-08-04] MEDS: LORazepam 1 MG (ATIVAN) TABLET PO PRN (23:28)
--- NOTE | 2016-08-04 23:30 | NUR ---
Ativan 1 mg PO given for anxiety. Pt. experiencing sharp pains in back with slight movements; repositioned for comfort; fan blowing on pt.; O2 remains at 3L via NC. Call light and H2O within reach.
[2016-08-04 23:49] VITALS: BP 116/69
--- NOTE | 2016-08-05 02:00 | NUR ---
Pt. resting comfortably at this time with eyes closed; resp are even and unlabored on 3L of O2 via NC. Pt. experienced a period of "come and go sharp pains' earlier; took longer to fall asleep as compared to previous night.
[2016-08-05] MEDS: MEROPENEM 1 GM in SODIUM CHLORIDE 100 ML IV SCH (05:15)
[2016-08-05] MEDS: oxycODONE/ACETAMINOPHEN 10MG-325 MG (PERCOCET-10) TABLET PO PRN ×5 (05:15→23:24)
--- NOTE | 2016-08-05 05:15 | NUR ---
Percocet 10 (1) PO given for back pain; currently rated "2"; anticipating getting up to weigh chair. Merrem infusing without difficulty; swan to gravity draining medium yellow urine. Pt. reports 'back itching'; complete linen change; and lotion applied to back for comfort. Coffee provided per request. Pt. verbalizes concern with transfer to [facility] tomorrow; "I hope I will be able to do everything expected-that pain can sure come out of nowhere". Much encouragement given by this nurse.
[2016-08-05 06:03] LABS: MEAN CORPUSCULAR HGB CONC 32.8 g/dL (31.0-37.0); MEAN CORPUSCULAR VOLUME 96 FL (80-100); MEAN PLATELET VOLUME 9.5 FL (6.0-9.5); PLATELET COUNT 441 10^3uL (150-450); WHITE BLOOD COUNT 10.97 10^3uL (4.0-11.0)
[2016-08-05 06:05] LABS: MEAN CORPUSCULAR HEMOGLOBIN 31.5 PG (26.0-34.0)
[2016-08-05 06:08] LABS: BAND NEUTROPHILS % 0 % (0-6); EOSINOPHILS % 1 % (0-4); LYMPHOCYTES # 1.1 #; MONOCYTES # 0.2 #; MONOCYTES % 2 % (3-11); RBC MORPH NORMAL (NORMAL); SEGMENTED NEUTROPHILS % 87 % (51-67); TOTAL CELLS COUNTED 100
[2016-08-05] MEDS: TIOTROPIUM 18 MCG/CAP (SPIRIVA) INHALER (5 CAPS) IH SCH (07:26)
[2016-08-05] MEDS: FLUTICASONE/SALMETEROL HFA 115/21 MCG (ADVAIR) COMMON CANNISTER INH SCH ×2 (07:26→20:25)
[2016-08-05 07:46] VITALS: BP 97/66
[2016-08-05] MEDS: POTASSIUM CHLORIDE ER 20 MEQ TABLET PO SCH ×2 (08:18→18:20)
[2016-08-05] MEDS: DOCUSATE SODIUM 100 MG (COLACE) CAP PO SCH ×2 (08:18→20:39)
[2016-08-05] MEDS: CITALOPRAM 40 MG (CELEXA) TABLET PO SCH (08:18)
[2016-08-05] MEDS: guaiFENesin ER 600 MG (MUCINEX) TAB PO SCH ×2 (08:18→20:39)
[2016-08-05] MEDS: POLYETHYLENE GLYCOL 17 GM (MIRALAX) PACKET PO SCH (08:19)
[2016-08-05] MEDS: NS FLUSH 3 ML DAILY IV SCH (08:19)
[2016-08-05] MEDS: ENOXAPARIN 40 MG/0.4 ML (LOVENOX) SYR SC SCH (08:19)
[2016-08-05] MEDS: LIDOCAINE (LIDODERM) 5% PATCH TOP SCH (08:19)
[2016-08-05] MEDS: FUROSEMIDE 100 MG/10 ML (LASIX) VIAL IV SCH ×2 (08:19→13:21)
[2016-08-05] MEDS: TAMSULOSIN 0.4 MG (FLOMAX) CAP PO SCH (09:40)
[2016-08-05] MEDS: BACITRACIN/POLYMYXIN OINTMENT 28.35 GM TUBE TOP SCH ×3 (12:06→21:23)
[2016-08-05] MEDS: NS FLUSH 10 ML PRN IV (13:21)
[2016-08-05 15:38] VITALS: BP 109/75
--- NOTE | 2016-08-05 16:23 | NUR ---
SpO2 on 3 lpm O2 = 88-89, increased O2 to 3.5 w increase in SpO2 to 90. BrS diminished but clear. Does DPI and MDI w good technique.
[2016-08-05] MEDS: AMOXICILLIN/CLAVULANATE 875MG-125MG (AUGMENTIN) TABLET PO SCH (18:20)
--- NOTE | 2016-08-05 18:55 | NUR ---
Report given to Snehal PERRY and care relinquished
--- NOTE | 2016-08-05 19:35 | NUR ---
Percocet 10 (1) PO given for 'shooting pain in back' rated '6'.
--- NOTE | 2016-08-05 19:50 | NUR ---
Pt.'s daughter visits with this nurse; update given. Daughter requests dismissal to take place after 1p tomorrow so she may be present and also assist.
--- NOTE | 2016-08-05 20:00 | NUR ---
Daughter notices Dr. Ace on the Med Surg floor; requests he visit with pt. for a few minutes. Dr. Ace in room with pt. and family.
[2016-08-05] MEDS: PATCH REMOVAL TOP SCH (23:23)
[2016-08-05] MEDS: LORazepam 1 MG (ATIVAN) TABLET PO PRN (23:24)
--- NOTE | 2016-08-05 23:25 | NUR ---
Percocet 10 (1) PO given for sharp, intermittent pain in back rated "5"; Ativan 1 mg PO given for anxiety. Pt. watching tv; O2 at 3L via NC; resp are unlabored at rest and with conversation. Staples to gravity draining medium yellow urine; call light and H2O within reach.
[2016-08-05 23:53] VITALS: BP 101/59
[2016-08-06] MEDS: oxycODONE/ACETAMINOPHEN 10MG-325 MG (PERCOCET-10) TABLET PO PRN ×2 (05:34→11:12)
--- NOTE | 2016-08-06 05:34 | NUR ---
Percocet 10 (1) PO given for back pain rated "4". Pt. just to and fro weigh chair; resp labored with activity; O2 at 3L via NC. Pt. slept in intervals; swan to gravity draining yellow urine. Call light and H2O within reach. Pt. conversational; concerned about the events of today/transfer to [facility]. Encouragement/reassurance given.
[2016-08-06 07:21] VITALS: BP 107/67
[2016-08-06] MEDS: FLUTICASONE/SALMETEROL HFA 115/21 MCG (ADVAIR) COMMON CANNISTER INH SCH (07:51)
--- NOTE | 2016-08-06 07:54 | NUR ---
Pt transferred to chair, SpO2 decreased to 84% on 3Lpm O2 via nasal canula. O2 increased to 4Lpm via Nasal Cannula.
[2016-08-06] MEDS: POTASSIUM CHLORIDE ER 20 MEQ TABLET PO SCH (08:36)
[2016-08-06] MEDS: DOCUSATE SODIUM 100 MG (COLACE) CAP PO SCH (08:36)
[2016-08-06] MEDS: CITALOPRAM 40 MG (CELEXA) TABLET PO SCH (08:36)
[2016-08-06] MEDS: guaiFENesin ER 600 MG (MUCINEX) TAB PO SCH (08:36)
[2016-08-06] MEDS: AMOXICILLIN/CLAVULANATE 875MG-125MG (AUGMENTIN) TABLET PO SCH (08:36)
[2016-08-06] MEDS: POLYETHYLENE GLYCOL 17 GM (MIRALAX) PACKET PO SCH (08:36)
[2016-08-06] MEDS: NS FLUSH 3 ML DAILY IV SCH (08:39)
[2016-08-06] MEDS: LIDOCAINE (LIDODERM) 5% PATCH TOP SCH (08:40)
[2016-08-06] MEDS: ENOXAPARIN 40 MG/0.4 ML (LOVENOX) SYR SC SCH (08:41)
[2016-08-06] MEDS: TAMSULOSIN 0.4 MG (FLOMAX) CAP PO SCH (08:44)
--- NOTE | 2016-08-06 08:45 | NUR ---
Pt sitting up in chair at this time. Skin warm, dry, intact. Resprs nonlabored, even on 4L NC. Pt c/o shooting pains in his back. Rates pain 4/10. Will given pain meds when available. SL leaks when flushed. Will hold IV Lasix. Jhoan patent to DD; clear, yellow drainage. Pt denies needs.
[2016-08-06] MEDS: FUROSEMIDE 100 MG/10 ML (LASIX) VIAL IV SCH (08:50)
[2016-08-06] MEDS: TIOTROPIUM 18 MCG/CAP (SPIRIVA) INHALER (5 CAPS) IH SCH (08:51)
--- NOTE | 2016-08-06 08:54 | NUR ---
SpO2 88-89% on 4Lpm sitting in chair.
--- NOTE | 2016-08-06 09:40 | NUR ---
Plan for Pt. to discharge to [facility] for skilled care. Pt. will go to [id number]. Transportation will be here at 14:00 to get Pt.
--- NOTE | 2016-08-06 11:15 | NUR ---
PRN Percocet given at this time for c/o back pain. Pt sitting up in chair. Asked pt to let daughter know he is leaving at 2pm and ask her to bring home clothes for him to change into. Denies other needs.
--- NOTE | 2016-08-06 12:28 | Discharge Summary (E) ---
Discharge Summary (E) Admit Date/Time July 26, 2016 at 16:18 Discharge Date/Time August 06, 2016 Admitting Provider Adin Ace MD Primary Care Provider Gentry Medellin MD Attending Provider Adin Ace MD Consulting Provider History and Present Illness Aurelio Herrera is a 71 year old male admitted from ED 07/25 after 3 falls at home attributed to leg weakness and tripping. He had acute on chronic lower back pain and has been dealing with worsening BLE edema. He has had urinary retention and swan was placed in office by PCP 2 days prior to admit. He has other chronic problems including stage III COPD. On 07/28 he had worsening leukocytosis and although he had no increased cough or dyspnea, treatment for pneumonia was started because of adverse change on follow-up chest x-ray. He had prolonged hospitalization due to slow recovery from pneumonia but respiratory status remained stable, and WBC and CRP eventually trended down. He had been given ceftriaxone and azithromycin initially but antibiotics were escalated to vancomycin and meropenem. Blood culture remained negative. Sputum grew Staph aureus, not MRSA. With gradual improvement and negative blood culture , antibiotics were de-escalated to amoxicillin/clavulanate. Strength and endurance were slowly improving along with gradual improvement in back pain. It was felt he would benefit from a long course of physical rehab and was thus discharged to [facility] for PT/OT and close monitoring in skilled care. Hospital Course and Treatment * SIRS/Sepsis: Resolved. Was not present on admit but present on 07/28. Attributed to community acquired pneumonia. * Community Acquired Pneumonia due to Staph aureus: Was not noted to be present on admit but became apparent 07/28. Blood culture negative. Sputum grew Staph aureus, not MRSA. Acapella, guaifenesin, ceftriaxone, azithromycin. Antibiotics had been escalated to meropenem and vancomycin but with gradual improvement, de- escalated to amoxicillin/clavulanate 08/05. Continue at discharge to complete total 10-day course of antibiotic. * Leukocytosis, Elevated CRP: Attributed to pneumonia. Had additional workup showing adverse CXR changes. Improved with treatment of pneumonia. WBC peak was 24.09. Improved to 10.97 08/05. CRP peak 19.20, improved to 6.90 08/02. * BLE Edema: Uncertain cause. Could be due to fluid retention caused by lung disease. Had not had cardiac workup prior to this admit. Renal function appears preserved and there does not appear to be significant proteinuria. Echo as noted with EF only mildly low at 50-55%. NT-pro-BNP only mildly elevated. JODY john. Furosemide given to good effect with weight going form 74.6 kg to 68.9 kg at discharge (-5.7 kg.) Low dose furosemide continued at discharge x 7 days with PCP to determine wether or not this should be continued. * Falls at home: Low vitamin D noted. PT/OT eval and treat. * Acute on Chronic Lower Back Pain, Lumbar Spinal Stenosis (L3-4, L4-5): Red flags: age, left leg weakness. Unable to tolerate MRI that had been ordered outpatient prior to admit. CT L-spine results as noted. PCP plans to refer to Dr. Paniagua in [place]. Oxycodone/acetaminophen, lidoderm for pain. * Constipation: Improved. Bowel regimen * Vitamin D Deficiency: Started ergocalciferol 50,000 IU weekly x 6 weeks. Follow with 2000 units PO daily. Recheck in 6 weeks. * Anxiety: Improved. Somewhat debilitating for him on admit. Offered lorazepam which was helpful. Monitor closely. At discharge to [facility], may have to keep low-dose PRN available to help him with stress of changing environment. Would avoid continuing this long-term. * Urinary Retention: Swan placed by PCP prior to admit. Was seen by urologist 07/30 who recommended keeping swan for now. Has further outpatient follow-up arranged with Dr. Villarreal 08/20. Swan to be changed by [facility] staff in 2 weeks. * F/E/N: 2 gram sodium diet. Peripheral IV. I&O, daily weight. At discharge, continue sodium restriction and monitor weight at least Q48H. * Prophylaxis: Enoxaparin * Code Status: Full * Dispo: Met inpatient criteria 07/26. Discharged to [facility] for further rehab in skilled care. CHRONIC ISSUES * Anxiety: Citalopram. Permit lorazepam, though monitor use closely. * Depression: Citalopram * Chronic Pack Pain: Oxycodone/acetaminophen * COPD Stage III: Albuterol PRN. Sub advair for symbicort. Sub tiotropium for Stiolto. At discharge, restarted Symbicort and continued to sub tiotropium for Stiolto. Recommend that combination of Stiolto and Symbicort be avoided because of duplicate long-acting beta agonist with that combo. * Chronic Respiratory Failure: Present prior to admit. On home oxygen. Continue in skilled care. Discharge Physicial Exam General Vital Signs Date Time Temp Pulse Resp B/P Pulse Ox O2 Delivery O2 Flow Rate FiO2 08/06/16 07:21 97.6 83 18 107/67 91 Nasal cannula 08/02/16 15:27 4.00 GEN: Awake, alert, oriented, resting in bed comfortably. NAD at present. HEENT: EOMI, clear sclerae, somewhat dry oral mucosa. CV: RRR S1 S2 normal with no murmur LUNGS: Diminished throughout. Faint and intermittent right basilar rales. No wheezes or rhonchi. ABD: Soft, NT/ND with normal bowel sounds. : Swan EXTR: 1+ BLE edema. Marked pedal edema was present on admit, L > R, but this is also improved. Compression hose on. INTEG: Punctate lesions BLE with weeping on admit but resolving. Secondary excoriations healing. Surrounding erythema resolving. Large bulla, dorsum of right foot, resolved. MS: Pain on palpation of lumbar spine. Pain with supine positioning. NEURO: No focal motor neuro deficit. Weight: 68.9 kg (admit weight 74.6 kg) Laboratory/Radiology Data WBC on admit 16.43, pekaed at 24.09, resolved to 10.97. CRP peak 19.20, improved to 6.90 before discharge. Micro results as noted. See discussion above for further relevant labs and see EMR for full details. MICRO SPEC #: [id number] RICO: 07/28/16 STATUS: COMP REQ #: [id number] RECD: 07/28/[address]: ADIN ACE MD Order Location: MED/SURG SOURCE: SPUTUM DESCRIPTION: EXPECTORAT Procedure Result Verified GRAM STAIN Final Verified 07/28/16-1840 Source: SPUTUM / EXPECTORATED Order Location: MEDICAL/SURGICAL WBC LARGE (>50 /LPF) SQUAMOUS EPITHELIAL SMALL(10-25/LPF) GRAM (-) COCCOBACILLI LARGE (>100/OIL) GRAM (+) COCCI LARGE (>100/OIL) GRAM (+) BACILLI SMALL(25-50/OIL) Culture Sputum Final Verified 08/01/16-0907 AM Source: SPUTUM / EXPECTORATED Order Location: MEDICAL/SURGICAL Source: Sputum Collected: 07/28/16 14:42 Site: EXPECTORAT Received : 07/29/16 15:38 Order#: [id number] [facility] Sputum/Lower Respiratory Culture FINAL 08/01/16 09:05 S Staphylococcus aureus Large amount Inducible Clindamycin resistance is not present Normal respiratory zuleyma present S. aureus Antibiotic GEORGE INT Clindamycin <=0.25 S Erythromycin >=8 R Oxacillin <=0.25 S Tetracycline <=1 S Trimethoprim/Sulfa <=10 S Vancomycin 1 S S=SUSCEPTIBLE I=INTERMEDIATE R=RESISTANT S-DD= SUSCEPTIBLE, DOSE DEPENDENT 07/28 Blood culture negative to date 07/26 urine culture negative to date 07/25 urine culture negative to date IMAGING 07/31/16 CHEST PA/LAT (2 VIEW)* INDICATION: Dyspnea, pneumonia. DISCUSSION: Two views of the chest were obtained, comparison 07/28/2016. Small right pleural effusion is noted. Consolidation within the right lung base is not significantly changed given differences in technique. Underlying COPD is stable. Mild atelectasis noted within the medial left lung base. Normal heart size. No acute osseous abnormality. IMPRESSION: 1. Small right pleural effusion with right lung base consolidation , not significantly changed. 07/28/16 CHEST PA/LAT (2 VIEW)* EXAMINATION: CHEST (PA AND LATERAL) CLINICAL INDICATION: 71-year-old male, leukocytosis. History of COPD. COMPARISON: July. FINDINGS: Stable overall appearance of the cardiomediastinal silhouette. There is no identified pneumothorax. There is increasing airspace consolidation in the right lower lobe. There is elevation of the right hemidiaphragm. There is no identified sizable pleural effusion. There are disc degenerative changes of the thoracic spine. IMPRESSION: 1. Increasing right lower lobe airspace consolidation which may relate to infiltrate such as aspiration or pneumonia. There also may be components of atelectasis. Additional alveolar consolidative processes would also be considered in the differential diagnosis. Correlation clinically and possible left resolution recommended. 07/27/16 US RENAL BILATERAL INDICATION: Urinary retention. COMPARISON STUDY: CT of the lumbar spine from 2 days ago. FINDINGS: The bilateral renal ultrasound demonstrates both kidneys to be of normal size, shape, texture, and echogenicity. No calculus or hydronephrosis is present. The right kidney measures 9 x 5 x 4 cm and the left kidney measures 9.4 x 4.4 x 3.7 cm. IMPRESSION: Normal renal ultrasound. 07/25/16 ECHO: Summary: Technically challenging study. Normal cardiac chamber sizes. Concentric left ventricular hypertrophy. Intact LV systolic function iwth estimated EF 58%. E/A mitral inflow reversal, consistent with diastolic dysfunction. No evidence of mitral insufficiency. Aortic valve sclerosis with no stenosis or insufficiency. Trace TR. Moderate pulmonary hypertension with PA pressure 60 mmHg. No pericardial effusion. 07/25/16 CT LUMBAR SPINE WO PROCEDURE: CT lumbar spine without contrast. TECHNIQUE: Multiple contiguous axial images were obtained through the lumbar spine without the use of intravenous contrast. Sagittal and coronal reformations were then performed. INDICATION: Qdoqw-vj-zzwuycv low back pain with leg weakness. FINDINGS: There is left convexity degenerative lumbar rotoscoliosis. The vertebral body heights are well maintained. There is multilevel degenerative disc disease with a vacuum disc at essentially every level of the lumbar spine. There is lower lumbar hypertrophic degenerative facet disease. At L3-L4, there appears to be broad-based annular bulging with thickening of the ligamentum flavum. There is at least ivqusthd-wh-tozsht central spinal stenosis with encroachment upon the lateral recesses bilaterally as well as right neuroforaminal encroachment. Similar findings are seen at L4- L5 and to a lesser degree at L5-S1. There is ectasia of the infrarenal abdominal aorta up to 2.7 cm. IMPRESSION: Moderately severe diffuse lumbar spondylosis and multilevel degenerative disc disease with a left convexity degenerative lumbar rotoscoliosis. There is bcqgtvgd-cz-kdumpl spinal stenosis at L3-L4 and L4-L5. This could be better evaluated with MRI. 07/25/16 CHEST 1 VIEW, AP/PA ONLY* INDICATION: Shortness of breath EXAMINATION: Portable chest at 10:48 AM Heart size and pulmonary vascularity are normal. Lungs are clear. There are no effusions or pneumothoraces. IMPRESSION: Negative chest. Discharge Disposition Discharged to [facility] for further rehab in skilled care. Instructions * You were evaluated for increased back pain related to falls at home. You had a CT scan of your lumbar spine that showed degenerative changes but no acute fractures. Pain improved with pain medicine and with therapy. Follow-through with your plan to discuss your back problems with the neurosurgeon. A CD-ROM of your CT scan can be obtained from radiology for review by your surgeon. * You were found to have pneumonia. This gradually improved with IV antibiotic. You will complete therapy for pneumonia after discharge with Augmentin. You need a follow-up chest x-ray in 2 weeks. * You have swelling in your legs that is likely due to fluid retention. This can be a consequence of chronic lung disease like COPD. You improved with furosemide and with compression hose. These were continued at discharge. Your primary care doctor will monitor your electrolytes and will determine if furosemide should be considered long-term. * You were found to have vitamin D deficiency. Ergocalciferol was prescribed for 6 weeks. After completing this course, your doctor can prescribe over-the- counter vitamin D 2000 units daily. * Because of urinary retention, you had a swan catheter placed by your primary care doctor. You were seen by the urologist who recommended this be left in and you will have a follow-up with the urologist in 2 weeks. The catheter can be changed by donna at the skilled nursing in 2 weeks. * You will benefit from further rehab and are thus being transferred to [facility] for further care in [facility]. Activity Instructions As tolerated. Appointments Follow-up with your primary care doctor in 3-5 days. Discharge Diet: Salt (sodium) restricted Discharge Medications New Medications: Acetaminophen (Acetaminophen) 325 Mg Tablet 650 MG PO Q6H PRN PAIN #0 Ref 0 TAB Albuterol Sulfate (Ventolin HFA) 90 Mcg/1 Puff Hfa.aer.ad 0 MCG IH Q4H PRN DYSPNEA #1 Ref 0 INHALER Amoxicillin/Potassium Clav (Amox Tr-K Clv 875-125 mg Tab) 1 Each Tablet 875 MG PO BID WITH MEALS #3 Ref 0 TAB Calcium Carbonate (Tums) 300 Mg Tab.chew 300 MG PO Q8H PRN DYSPEPSIA #0 Ref 0 TAB.CHEW Docusate Sodium (Docusate Sodium) 100 Mg Capsule 100 MG PO BID #60 Ref 0 CAP Ergocalciferol (Vitamin D2) 50,000 Unit Capsule 59794 UNITS PO Th@09 #4 Ref 0 CAP Guaifenesin (Mucinex) 600 Mg Tab 1200 MG PO BID Take for 5 more days then stop if improving. #20 Ref 0 TAB Lidocaine HCl (Lidoderm 5% Patch) 1 Ea Patch 3 EA TOP DAILY back pain #90 Ref 0 PATCH Lorazepam (Ativan) 1 Mg Tab 1 MG PO TID PRN Anxiety #15 Ref 0 TAB Magnesium Hydroxide (Milk of Magnesia 400mg/5ml) 400 Mg/5 Ml Oral.susp 30 ML PO QID PRN CONSTIPATION #0 Ref 0 ML Oxycodone HCl/Acetaminophen (Percocet 10mg/325mg) 1 Tab Tablet 1 TAB PO Q4H PRN PAIN #30 Ref 0 TAB Polyethylene Glycol 3350 (Miralax) 17 Gm Powd.pack 17 GM PO DAILY #30 Ref 0 PACKET Potassium Chloride (Klor-Con M20) 20 Meq Tab.er.prt 20 MEQ PO DAILY #7 Ref 0 TAB Tiotropium [place] (Spiriva) 18 Mcg Cap.w.dev 18 MCG IH DAILY@0800 #30 Ref 0 CAP Changed Medications: Furosemide (Furosemide) 20 Mg Tablet 40 MG PO DAILY #14 Ref 0 TAB (Changed from: 20 MG; BID; Refills: ) Continued Medications: Aspirin (Baby Aspirin) 81 Mg Tab.chew 81 MG PO DAILY TAB.CHEW Budesonide/Formoterol Fumarate (Symbicort 160-4.5 mcg Inhaler) 10.2 Gm Hfa.aer.ad 2 PUFF IH BID INHALER Citalopram Hydrobromide (Citalopram Hydrobromide) 40 Mg Tablet 40 MG PO DAILY TAB Meloxicam (Meloxicam) 15 Mg Tablet 15 MG PO DAILY TAB Tamsulosin HCl (Flomax) 0.4 Mg Cap 0.4 MG PO DAILY Bph Ref 0 CAP Discontinued Medications: Acetaminophen (Acetaminophen) 500 Mg Tablet 500-1000 MG PO NEEDED PRN PAIN TAB Albuterol Sulfate (Proventil HFA) 6.7 Gm Hfa.aer.ad 2 PUFF IH NEEDED PRN DYSPNEA INHALER Albuterol/Ipratropium (Duoneb 3mg-0.5mg/3ml) 3 Ml Nebu 3 ML INH EVERY 4 TO 6 HOURS PRN SHORTNESS OF BREATH Ref 0 VIAL Guaifenesin (Guaifenesin) 600 Mg Tablet.er 600 MG PO BID PRN COUGH TAB Oxycodone HCl/Acetaminophen (Percocet 10mg/325mg) 1 Tab Tablet 1 TAB PO EVERY 4 TO 6 HOURS PRN PAIN Ref 0 TAB Tiotropium Br/Olodaterol HCl (Stiolto Respimat Inhal [place]) 4 Gm Mist.inhal 2 PUFF IH DAILY Follow up Follow up Referrals: Urology - 08/20/16 with Bernard Villarreal MD New Orders: CXR (CHEST PA/LAT (2 VIEW)* - 08/20/16 RENAL PROFILE - 05/26/17 VITAMIN D 25-HYDROXY - 09/10/16 Discharge Diagnosis See list above. Problems: Copies to: End of Report . ADIN ACE MD August 06, 2016 12:07
[2016-08-06] MEDS ORDERED: FURO20TA4 PO (12:30)
[2016-08-06] MEDS ORDERED: LORA1TAB PO (12:30)
[2016-08-06] MEDS ORDERED: OXYC1TAB12 PO (12:30)
[2016-08-06] MEDS ORDERED: AMOX1TAB12 PO (12:30)
[2016-08-06] MEDS ORDERED: POLY17PO2 PO (12:30)
[2016-08-06] MEDS ORDERED: [UNRECOGNIZED DRUG - CODE] PO (12:30)
[2016-08-06] MEDS ORDERED: GFN600TCR PO (12:30)
[2016-08-06] MEDS ORDERED: DOCU100C8 PO (12:30)
[2016-08-06] MEDS ORDERED: MAGN400O7 PO (12:30)
[2016-08-06] MEDS ORDERED: CALC300T10 PO (12:30)
[2016-08-06] MEDS ORDERED: TIOT18CA IH (12:30)
[2016-08-06] MEDS ORDERED: LD5PT TOP (12:30)
[2016-08-06] MEDS ORDERED: ALBU8CC IH (12:30)
[2016-08-06] MEDS ORDERED: AC325T PO (12:30)
[2016-08-06] MEDS ORDERED: KCL20TCR PO (12:30)
[2016-08-06] MEDS: BACITRACIN/POLYMYXIN OINTMENT 28.35 GM TUBE TOP SCH (13:00)
--- NOTE | 2016-08-06 14:04 | NUR ---
Report given to VICKY Waddell at [facility] 801. Skin warm, dry, intact. Resprs nonlabored, even on 4L NC. Belongings gathered. SL removed with catheter tip intact. No redness or edema noted. [facility] transportation here. Pt dismissed at this time via w/c accompanied by [facility] transportation and daughter. Belongings and DC packet sent with patient. Pt appreciative of cares.
--- NOTE | 2016-08-06 16:08 | Discharge Instructions (E) ---
Discharge Instructions Instructions * You were evaluated for increased back pain related to falls at home. You had a CT scan of your lumbar spine that showed degenerative changes but no acute fractures. Pain improved with pain medicine and with therapy. Follow-through with your plan to discuss your back problems with the neurosurgeon. A CD-ROM of your CT scan can be obtained from radiology for review by your surgeon. * You were found to have pneumonia. This gradually improved with IV antibiotic. You will complete therapy for pneumonia after discharge with Augmentin. You need a follow-up chest x-ray in 2 weeks. * You have swelling in your legs that is likely due to fluid retention. This can be a consequence of chronic lung disease like COPD. You improved with furosemide and with compression hose. These were continued at discharge. Your primary care doctor will monitor your electrolytes and will determine if furosemide should be considered long-term. * You were found to have vitamin D deficiency. Ergocalciferol was prescribed for 6 weeks. After completing this course, your doctor can prescribe over-the- counter vitamin D 2000 units daily. * Because of urinary retention, you had a swan catheter placed by your primary care doctor. You were seen by the urologist who recommended this be left in and you will have a follow-up with the urologist in 2 weeks. The catheter can be changed by donna at the [facility] in 2 weeks. * You will benefit from further rehab and are thus being transferred to [facility] for further care in correction. Activity Instructions As tolerated. Doctor's Appointment Follow-up with your primary care doctor in 3-5 days. Discharge Diet: Salt (sodium) restricted SONIA CERVANTES MD August 06, 2016 16:07
--- NOTE | 2016-08-08 12:42 | OT Therapy Evaluation (E) ---
Discharge Summary Service Date/Time 08/08/16, 12:39 Primary Diagnosis: (1) Frequent falls ICD Code: R29.6 (2) Bilateral lower extremity edema ICD Code: R60.0 (3) Chronic back pain ICD Code: 724.5 (4) Strain of back muscle ICD Code: 847.9 Treatment Diagnosis: (1) Weakness ICD Code: R53.1 Onset Date: 07/25/16 Start of Care Date: July 26, 2016 Summary of Discharge Therapy Comments Pt was seen for 7 occupational therapy sessions following initial evaluation. Education was provided on deep breathing to ease shortness of breath. Able to complete with minimal cueing for proper technique. Unable to reassess all goals secondary to early discharge to another facility for skilled services. Short Term Goals/Status Will Dress Upper Extremity: With Min Assistance (NOT MET.) STG #1 Pt will participate in 15 min of ther-ex with use of energy conservation techniques as needed. GOAL MET. Front Counter Clerk Goals/ Status Will Dress Upper Extremity: With Setup/SBA (NOT MET.) Will Dress Lower Extremity: With Min Assistance (NOT MET. ) Will Bathe Self: With Min Assistance (NOT MET.) Will do Toilet Transfers: With Min Assistance (GOAL MET.) Will do Toilieting: With Min Assistance (NOT MET. Maximum assistance.) LTG # 1 Pt will demonstrate ability to independently apply deep breathing techniques during daily activities and exercises to ease shortness of breath and improve performance. PROGRESS. Minimal prompting. Discharge Recommendations: Retirement (TCU/NH) SANDRA LIVE OT August 08, 2016 12:42
== END 2016-08-06 14:03 | DRG 551 ==
LOC: EDUNIT# 10:05 → ED 10:12 → MED/SURG 13:15 → OBSVTOIN 07-26 16:18 → MED/SURG 07-31 06:30
PROVIDERS: ADMIT Internal Medicine; ATTEND Internal Medicine
DX: M48.06 Spinal stenosis, lumbar region (principal); A41.9 Sepsis, unspecified organism; J15.211 Pneumonia due to Methicillin susceptible Staphylococcus aureus; J96.10 Chronic respiratory failure, unspecified whether with hypoxia or hypercapnia; J44.0 Chronic obstructive pulmonary disease with (acute) lower respiratory infection; M51.36 Other intervertebral disc degeneration, lumbar region; R60.0 Localized edema; G89.29 Other chronic pain; R33.9 Retention of urine, unspecified; F41.9 Anxiety disorder, unspecified; E55.9 Vitamin D deficiency, unspecified; R29.6 Repeated falls; Z87.891 Personal history of nicotine dependence; Z99.81 Dependence on supplemental oxygen
CPT/HCPCS: 36415; 36600; 71010; 71020; 72131; 76770; 80048; 80053; 80069; 81003; 81015; 82306; 82550; 82553; 82803; 83735; 83880; 84443; 84484; 85007; 85025; 85027; 85610; 86140; 87040; 87070; 87088; 87147; 87186; 87205; 93005; 93010; 93306; 94640; 94669; 94760; 99284; 99285

== ENCOUNTER → 2016-07-25 | Outpatient (CLI) | payer OTHER, MEDICARE ==
[~2016-07-25] MED LIST: AC500T PO; ALBU6.7H IH; ASP81CT PO; BUDE10.2 IH; CITA40TA5 PO; CYCL10TA45 PO; FURO20TA4 PO; GUAI600T45 PO; IPRA3AMP11 INH; MELO-249 PO; METH4TAB27 PO; NAPR220C11 PO; NAPR550T PO; OXYC1TAB12 PO; TAMS-8 PO; TIOT4MIS3 IH; VIT1TABL90 PO
== END ==
LOC: EMS 09:47
PROVIDERS: ATTEND Family Medicine
DX: J44.9 Chronic obstructive pulmonary disease, unspecified (principal); R29.6 Repeated falls